=== PATIENT | female | born 1950 | race African-American/Black ===

== ENCOUNTER 2017-08-01 06:16 | Emergency (ER) | payer OTHER ==
[~2017-08-01] VITALS: Ht 177.8 cm; Wt 56.3 kg
[2017-08-01 06:23] VITALS: BP 112/70; TEMP 36.4; O2SAT 97; Ht 177.8 cm; Wt 56.3 kg
[2017-08-01 06:35] VITALS: PULSE 47
[2017-08-01] MEDS ORDERED: ALPR0.5T PO (06:38)
--- NOTE | 2017-08-01 06:44 | EMERGENCY ROOM VISIT NOTE ---
History Report prepared by Sy: Edmund Milan Under the Supervision of: Dr. Francisco J Tirado M.D. First contact with patient: 06:26 Chief Complaint: ANXIETY Stated Complaint: HEADACHE,HEART RACING History of Present Illness The patient is a 67 year old female who presents to the Emergency Room with complaints of "anxiety and panic attacks," which have been worsening for the past month. The patient states that she has a history of anxiety and panic attacks, which have been precipitated for the past month by the passing of her mother. She denies any chest pain, but does note that she felt short of breath this morning when she woke up. The patient notes that the only thing that works for her anxiety is Xanax. Source of History: patient Onset: past month Position: head Quality: other (anxiety and panic attacks) Timing: worsening Associated Symptoms: + SOB, No chest pain Review of Systems See HPI for pertinent positives & negatives. A total of 10 systems reviewed and were otherwise negative. Past Medical & Surgical Medical Problems: (1) Anxiety Anxiety Social History Smoking Status: Never Smoker Drug Use: none Occupation Status: employed Current/Historical Medications Scheduled Alprazolam (Xanax), 0.5 MG PO TID Physical Exam Vital Signs Date Time Temp Pulse Resp B/P (MAP) Pulse Ox O2 Delivery O2 Flow Rate FiO2 08/01/17 06:35 47 18 06:23 36.4 97 18 112/70 97 Room Air Physical Exam GENERAL: Awake, alert, well-appearing, in no acute distress HENT: Normocephalic, atraumatic. Oropharynx unremarkable. EYES: Normal conjunctiva. Sclera non-icteric. NECK: Supple. No nuchal rigidity. FROM. No JVD. RESPIRATORY: Clear to auscultation. CARDIAC: Regular rate, normal rhythm. Extremities warm and well perfused. Pulses equal. ABDOMEN: Soft, non-distended. No tenderness to palpation. No rebound or guarding. No masses. RECTAL: Deferred. MUSCULOSKELETAL: Chest examination reveals no tenderness. The back is symmetrical on inspection without obvious abnormality. There is no CVA tenderness to palpation. No joint edema. LOWER EXTREMITIES: Calves are equal size bilaterally and non-tender. No edema. No discoloration. NEURO: Normal sensorium. No sensory or motor deficits noted. SKIN: No rash or jaundice noted. Medical Decision & Procedures ED Course 0628: Past medical records reviewed. The patient was evaluated in room B3B. A complete history and physical examination was performed. 0649: Upon reexamination the patient is resting in bed. I discussed results and treatment plan with the patient. She verbalizes agreement and understanding. The patient is ready for discharge. Medical Decision Differential diagnosis: Etiologies such as mood disorder, infection, depression, anxiety, hypoglycemia, electrolyte abnormalities, cardiac sources, neurologic, as well as others were entertained. This is a 67-year-old female presents emergency department requesting Xanax. According to the PD MP the patient has Xanax prescription filled approximately once a month and it is only for a limited supply. Patient is not from this area and is requesting some to get her through Saturday. She states that this is a normal anxiety reaction for her and denies any chest pain shortness of breath , suicidal ideation, homicidal ideation. I feel it is reasonable to give the patient a limited supply of Xanax as I do not want her to go into withdrawal from a benzodiazepine. Patient was in agreement with the treatment plan. Medication Reconcilliation Current Medication List: was personally reviewed by me Blood Pressure Screening Patient's blood pressure: Normal blood pressure Impression Primary Impression: Anxiety Scribe Attestation The scribe's documentation has been prepared under my direction and personally reviewed by me in its entirety. I confirm that the note above accurately reflects all work, treatment, procedures, and medical decision making performed by me. Departure Information Dispostion Home / Self-Care Prescriptions Alprazolam (XANAX) 0.5 Mg Tab 0.5 MG PO TID, #12 TAB Prov: Francisco J Tirado MD 08/01/17 Referrals No Doctor, Assigned (PCP) Forms HOME CARE DOCUMENTATION FORM, IMPORTANT VISIT INFORMATION Patient Instructions My [facility] Additional Instructions You have been examined and treated today on an emergency basis only. This is not a substitute for, or an effort to provide, complete comprehensive medical care. It is impossible to recognize and treat all injuries or illnesses in a single emergency department visit. It is therefore important that you follow up closely with your PCP. Call as soon as possible for an appointment. Thank you for your time and consideration. I look forward to speaking with you again soon. Please don't hesitate to call us if you have any questions.
== END 2017-08-01 06:45 | disposition home or self-care (01) ==
LOC: C.EDB 06:18
DX: F41.9 Anxiety disorder, unspecified (principal)

== ENCOUNTER 2023-05-08 15:00 | Inpatient (IN) ==
--- NOTE | 2023-05-08 15:56 | Emergency Department Note ---
Impression & Plan Acute hyponatremia, AMS (altered mental status), Viral URI ED Provider Note NAME: KIKI DELCID AGE: 73 SEX: F : 1950 ARRIVES VIA: Ambulance INFORMANT: Patient ED PROVIDER(S): Sonido Luu DO CHIEF COMPLAINT: cough and chest pain HPI: Patient is a 73-year-old female who presents to the ER for cough, congestion, shortness of breath and weakness. Symptoms started on Saturday per the daughter. Patient had been confused since this morning. Very weak and rundown. She denies any headache or change in vision. Does have chest pain on the right side which resolved prior to arrival. No belly pain, nausea, vomiting, or diarrhea. No dysuria, urgency, or frequency. No other exacerbating or remitting factors. Majority history is obtained from daughter who is present at bedside. ADDITIONAL HISTORY OBTAINED: Per HPI Chronic Medical/Social Conditions Affecting Care: Per HPI PAST MEDICAL HISTORY:See Below PAST SURGICAL HISTORY:See Below FAMILY HISTORY:See Below SOCIAL HISTORY:See Below HOME MEDICATIONS:See Below ALLERGIES:See Below VITALS:See Below PHYSICAL EXAMINATION: GENERAL: Sitting up in bed, alert, persistent cough, slightly ill-appearing, disheveled EYE EXAM: normal conjunctiva. PERRL and EOM's grossly intact. OROPHARYNX: mucous membranes are moist LUNGS: Clear to auscultation. Normal chest wall mechanics HEART: no murmurs, S1 normal and S2 normal ABDOMEN: abdomen soft, non-tender, normo-active bowel sounds, no masses, no rebound or guarding. BACK: Back is symmetrical on inspection and there is no deformity, no midline tenderness, no CVA tenderness. SKIN: no rashes and no bruising UPPER EXTREMITIES: upper extremities are grossly normal. LOWER EXTREMITIES: No pitting edema. NEURO EXAM: Oriented to person and place but not year, cranial nerves II-XII grossly intact, normal speech, no gross weakness of arms, no gross weakness of legs. MEDICAL DECISION MAKING: Patient is a 73-year-old female who presents ER for above-stated complaint. IV was established blood work was obtained. Labs show a subtle leukocytosis of 11,000. No significant anemia. BMP with hyponatremia at 124. LFTs bilirubin was unremarkable. Troponin was mildly elevated at 26. UA was clean. Viral panel was negative. Patient was given Tessalon Perles and IV fluids. Updated at bedside. CT head was negative. Patient did appear to be dehydrated was discussed with the hospitalist for further evaluation management and treatment. Consults/Care Managements Discussions: Per [facility] Triage Nursing notes reviewed. Limited review of prior medical records performed Vital Signs: reviewed and remarkable for no significant abnormalities Differential diagnosis: Differential diagnoses includes but is not limited to pneumonia, bronchitis, COPD/Asthma exacerbation, pneumothorax, pulmonary embolism, congestive heart failure, acute coronary syndrome ER treatment provided: See below Diagnostics interpreted by me include EKG and cardiac monitoring as listed below: -Cardiac Monitoring: An order was placed for continuous cardiac monitoring. The monitor shows a rate of 80 with sinus rhythm. -ECG: Sinus rhythm rate 75 Normal axis No PVCs T wave inversion in V3 through V5 with nonspecific ST changes in the inferior leads QTc 417 -Laboratory studies:Interpreted by me as stated above in MDM and shown below. Imaging studies: Xrays: As interpreted by me: Portable AP upright 1 view the chest shows no focal Lutrate CTs show: CT of the head was negative Procedures:none Critical Care: None Past Med/Surg History Medical History No pertinent past medical history Surgical History History of brain surgery Family History Mother Diabetes Sister Diabetes Brother Hypertension Other Environmental allergies No family history of adverse response to anesthesia No family history of bleeding disorder Denies family history of Ovarian cancer Prostate cancer Myocardial infarction Breast cancer Colorectal cancer Social History Smoking Status: Never smoker Second Hand Exposure: No; Do You Dip or Chew Tobacco: No; Hx Alcohol Use: No Hx Substance Use: No Preferred Language: Polish Visual Impairment: Limited Hearing Ability: Normal Beliefs That Will Affect Care: None marital status: Single Current Living Situation: Alone current occupational status: retired How many Children do You have: 2 How many Children do You have Comment: 1 boy 1 girl Feels Safe at Home: Yes Childhood Exposure to Second-Hand Smoke: No Diet: regular during the past year weight has: remained stable Dental Care, Regularly: No Physical Activity Frequency: Does not Exercise Seatbelt Use: always Sunscreen Use: No Allergies Allergies Allergy/AdvReac Type Severity Reaction Status Date / Time No Known Allergies Allergy Verified 05/08/23 17:26 Home Meds Home Medications Medication Instructions Recorded Confirmed No Known Home Medications 02/28/23 05/08/23 Results & Data (ED) Vital Signs Vital Signs - 24 hr 05/08/23 15:33 05/08/23 18:09 Temperature 37.4 C Temperature Source Oral Pulse Rate 76 Pulse Rate [Apical] 68 Respiratory Rate 20 17 Respiratory Effort / Characteristics Non-Labored Respiratory Depth Normal Blood Pressure 133/71 Blood Pressure [Left Arm] 98/59 L Blood Pressure Mean 91 Blood Pressure Mean [Left Arm] 72 Pulse Oximetry 92 94 Oxygen Delivery Method Room Air Room Air Sepsis Recent Fever Within 48 Hours Yes Sepsis New/Unexplained Change in Mental Status Yes Sepsis Action Taken by Nursing No Action Required Laboratory Data 05/08/23 15:22 05/08/23 15:22 Lab Results 05/08/23 05/08/23 05/08/23 Range/Units 15:22 15:30 15:37 WBC 11.81 H (4.8-10.8) K/ul RBC 3.58 L (4.20-5.40) M/uL Hgb 11.6 L (12.0-16.0) g/dl Hct 32.2 L (37.0-47.0) % MCV 89.9 (80.0-100.0) fL MCH 32.4 (25.0-34.0) pg MCHC 36.0 (32.0-36.0) g/dL RDW Std Deviation 38.5 (36.4-46.3) fL RDW Coeff of Pamela 11.7 (11.5-14.5) % Plt Count 204 (130-400) K/uL MPV 10.9 (9.4-12.4) fL Immature Gran % (Auto) 0.5 % Neut % (Auto) 80.0 % Lymph % (Auto) 10.5 % Bledsoe % (Auto) 8.0 % Eos % (Auto) 0.7 % Baso % (Auto) 0.3 % Neut # (Auto) 9.45 H (1.40-6.50) K/uL Lymph # (Auto) 1.24 (1.20-3.40) K/uL Bledsoe # (Auto) 0.94 H (0.11-0.59) K/uL Eos # (Auto) 0.08 (0.00-0.50) K/uL Baso # (Auto) 0.04 (0.00-0.20) K/uL Immature Gran # (Auto) 0.06 (0.01-0.20) K/uL Sodium 124 L (136-145) mmol/L Potassium 3.6 (3.5-5.1) mmol/L Chloride 90 L (98-107) mmol/L Carbon Dioxide 25 (21-32) mmol/L Anion Gap 9 (3-11) BUN 10 (6-23) mg/dl Creatinine 0.69 (0.6-1.2) mg/dl Est Cr Clr Drug Dosing 71.7 ml/min Est GFR ( Amer) 100.8 ml/min Est GFR (Non-Af Amer) 87.0 ml/min BUN/Creatinine Ratio 14.5 (10-20) Glucose 80 (70-99(Fasting)) mg/dl Osmolality 259 L (280-300) mOsm/kg Calcium 9.3 (8.6-10.3) mg/dl Total Bilirubin 0.7 (0.2-1.0) mg/dl AST 34 (13-39) U/L ALT 10 (7-52) U/L Alkaline Phosphatase 107 H (34-104) U/L Lactate Dehydrogenase 275 H (86-244) U/L Troponin I High Sens 26.0 H (0-14) pg/ml Total Protein 8.0 (6.0-8.3) gm/dl Albumin 4.1 (3.4-5.0) gm/dl Globulin 3.9 (2.5-4.0) gm/dl Albumin/Globulin Ratio 1.1 (0.9-2) Lipase < 3 L (11-82) U/L Procalcitonin 7.12 H (0-0.5) ng/ml Random Cortisol 8.70 mcg/dl Urine Color Yellow Urine Appearance Clear (Clear) Urine pH 5.5 (4.5-7.5) Ur Specific [place] 1.017 (1.000-1.030) Urine Protein Trace H (Negative) Urine Glucose (UA) Negative (Negative) Urine Ketones 3+ H (Negative) Urine Blood 3+ H (Negative) Urine Nitrite Negative (Negative) Urine Bilirubin Negative (Negative) Urine Urobilinogen Negative (Negative) Ur Leukocyte Esterase Trace H (Negative) Urine WBC (Auto) 1-5 (0-5) /hpf Urine RBC (Auto) >30 H (0-4) /hpf U Hyaline Cast (Auto) 1-5 (0-5) /lpf U Epithel Cells (Auto) 5-10 H (0-5) /lpf Urine Bacteria (Auto) Negative (Negative) Urine Osmolality 579 (500-800) mOsm/kg Ur Random Sodium 120 mmol/L SARS-CoV-2 (PCR) NEGATIVE (Negative) Influenza Type A (PCR) Negative (Neg) Influenza Type B (PCR) Negative (Neg) RSV (RT-PCR) Negative (Neg) Administered Medications Discontinued Medications Acetaminophen (Acetaminophen 325 Mg Tab) 650 mg PO NOW STA Stop: 05/08/23 18:46 Last Admin: 05/08/23 18:54 Dose: Not Given Documented By: FRANCIA Benzonatate (Benzonatate 100 Mg Capsule) 100 mg PO NOW ONE Stop: 05/08/23 15:50 Last Admin: 05/08/23 16:04 Dose: 100 mg Documented By: FRANCIA Sodium Chloride (Nss) 500 mls @ 999 mls/hr IV .Q31M ONE Stop: 05/08/23 16:19 Last Infusion: 05/08/23 16:43 Dose: Infused Documented By: Admin: 05/08/23 16:04 Dose: 999 mls/hr Documented By: FRANCIA Ceftriaxone Sodium (Rocephin) 2,000 mg in 50 mls @ 100 mls/hr IV NOW STA Stop: 05/08/23 17:13 Last Infusion: 05/08/23 17:18 Dose: Infused Documented By: Admin: 05/08/23 16:55 Dose: 100 mls/hr Documented By: FRANCIA Azithromycin 500 mg/ Dextrose 255 mls @ 127.5 mls/hr IV NOW STA Stop: 05/08/23 18:43 Last Infusion: 05/08/23 19:39 Dose: Infused Documented By: Admin: 05/08/23 17:23 Dose: 127.5 mls/hr Documented By: BRENT Acetaminophen (Ofirmev) 1,000 mg in 100 mls @ 400 mls/hr IV NOW STA Stop: 05/08/23 20:10 Last Admin: 05/08/23 20:09 Dose: 400 mls/hr Documented By: KHLOE Ioversol (Optiray 320 500ml) 82 ml IV ONCE ONE Stop: 05/08/23 20:22 Last Admin: 05/08/23 20:21 Dose: 82 ml Documented By: LAINE Imaging Data Radiologist's Impression: Chest X-Ray 05/08/23 15:36 XR chest 1V portable CLINICAL HISTORY: Cough productive TECHNIQUE: Single frontal radiograph of the chest was obtained. Comparison: Comparison is made to chest radiograph 03/17/2021 FINDINGS: No lines and tubes are seen. Cardiomegaly is noted. Peribronchial thickening is seen. No evidence of pleural effusion or pneumothorax. IMPRESSION: Peribronchial thickening is seen compatible with infectious/inflammatory airways disease or viral pneumonia. No aristides consolidation is seen. ACT 112: Negative or not required by law. Electronically signed by: Dario Billings M.D. 05/08/2023 4:[address] 05/08/23 16:51 CT head/brain wo con CLINICAL HISTORY: ams Technique: Contiguous axial CT images of the head were acquired from the base of the skull to the vertex without intravenous contrast administration. Images were viewed in brain, subdural and bone windows. Automated dose lowering techniques and/or adjustment according to patient size were utilized for this exam. Comparison: Comparison is made to CT head 03/17/2021 Findings: The ventricles, basal cisterns, and cerebral sulci are normal. There is no acute intracranial hemorrhage or evidence of acute territorial infarction. Neither mass effect, shift of the midline structures, nor abnormal extra-axial fluid collections are shown. Imaged portions of the paranasal sinuses and mastoid air cells are clear. The orbits appear normal. There are no acute fractures of the calvaria or scalp swelling. Impression: No acute intracranial hemorrhage, no evidence of acute territorial infarction or other acute intracranial disease process. ACT 112: Negative or not required by law. Electronically signed by: Dario Billings M.D. 05/08/2023 5:12 PM Discharge Plan Visit Data Chief Complaint: Illness Stated Complaint: ILLNESS, COUGH, CONFUSION ED Provider: Sonido Luu Discharge Problem: Acute hyponatremia, AMS (altered mental status), Viral URI Discharge Problem: AMS (altered mental status) Qualifiers: Altered mental status type: unspecified Qualified Code(s): R41.82 - Altered mental status, unspecified
[2023-05-08 16:01] LABS: Appearance Urine Clear (Clear); Bacteria Urine Automated Negative (Negative); Bilirubin Urine Negative (Negative); Blood Urine 3+ (Negative); Color Urine Yellow; Glucose Urine UA Negative (Negative); Ketones Urine 3+ (Negative); Leukocyte Esterase Urine Trace (Negative); Nitrite Urine Negative (Negative); Protein Urine Trace (Negative); RBC Urine Automated >30 /hpf (0-4); Specific Gravity Urine 1.017 (1.000-1.030); Urobilinogen Urine Negative (Negative); pH Urine 5.5 (4.5-7.5)
[2023-05-08] MEDS: SODIUM CHLORIDE 0.9% 500 ML IV ONE (16:04)
[2023-05-08] MEDS: BENZONATATE 100 MG CAPSULE PO ONE (16:04)
[2023-05-08 16:09] LABS: Alanine Aminotransferase 10 U/L (7-52); Albumin Globulin Ratio 1.1 (0.9-2); Albumin Level 4.1 gm/dl (3.4-5.0); Alkaline Phosphatase 107 U/L (34-104); Anion Gap 9 (3-11); Aspartate Aminotransferase 34 U/L (13-39); BUN Creatinine Ratio 14.5 (10-20); Bilirubin,Total 0.7 mg/dl (0.2-1.0); Blood Urea Nitrogen 10 mg/dl (6-23); Calcium 9.3 mg/dl (8.6-10.3); Carbon Dioxide 25 mmol/L (21-32); Chloride 90 mmol/L (98-107); Creatinine Clr Calc Pharmacy 71.7 ml/min; Est GFR (African American) 100.8 ml/min; Globulin 3.9 gm/dl (2.5-4.0); Glucose 80 mg/dl (70-99(Fasting)); Potassium 3.6 mmol/L (3.5-5.1); Sodium 124 mmol/L (136-145)
[2023-05-08 16:15] LABS: Hematocrit (blood only) 32.2 % (37.0-47.0); Hemoglobin 11.6 g/dl (12.0-16.0); Mean Corpuscular Hemoglobin 32.4 pg (25.0-34.0); Mean Corpuscular Volume 89.9 fL (80.0-100.0); Mean Platelet Volume 10.9 fL (9.4-12.4); Platelet Count 204 K/uL (130-400); RDW Coefficient of Variation 11.7 % (11.5-14.5); RDW Standard Deviation 38.5 fL (36.4-46.3); Red Blood Count 3.58 M/uL (4.20-5.40); White Blood Count 11.81 K/ul (4.8-10.8)
[2023-05-08 16:17] LABS: Basophils # (auto) 0.04 K/uL (0.00-0.20); Basophils % (auto) 0.3 %; Eosinophils # (auto) 0.08 K/uL (0.00-0.50); Eosinophils % (auto) 0.7 %; Immature Granulocytes # (auto) 0.06 K/uL (0.01-0.20); Immature Granulocytes % (auto) 0.5 %; Lymphocytes # (auto) 1.24 K/uL (1.20-3.40); Lymphocytes % (auto) 10.5 %; Monocytes # (auto) 0.94 K/uL (0.11-0.59); Neutrophils # (auto) 9.45 K/uL (1.40-6.50)
[2023-05-08 16:22] LABS: Lipase < 3 U/L (11-82)
--- NOTE | 2023-05-08 16:28 | XRay Report ---
XR chest 1V portable CLINICAL HISTORY: Cough productive TECHNIQUE: Single frontal radiograph of the chest was obtained. Comparison: Comparison is made to chest radiograph 03/17/2021 FINDINGS: No lines and tubes are seen. Cardiomegaly is noted. Peribronchial thickening is seen. No evidence of pleural effusion or pneumothorax. IMPRESSION: Peribronchial thickening is seen compatible with infectious/inflammatory airways disease or viral pne umonia. No aristides consolidation is seen. ACT 112: Negative or not required by law. Electronically signed by: Dario Billings M.D. 05/08/2023 4:26 PM
[2023-05-08 16:42] LABS: Influenza A virus by PCR Negative (Neg); Influenza B virus by PCR Negative (Neg); RSV by PCR Negative (Neg); SARS CoV2 RNA(COVID-19) Ceph NEGATIVE (Negative)
[2023-05-08] MEDS: cefTRIAXone SODIUM 2,000 MG/50 ML BAG IV STA (16:55)
--- NOTE | 2023-05-08 16:59 | Electrocardiogram Report ---
Test Reason : Blood Pressure : / mmHG Vent. Rate : 075 BPM Atrial Rate : 075 BPM P-R Int : 142 ms QRS Dur : 092 ms QT Int : 422 ms P-R-T Axes : 064 063 -30 degrees QTc Int : 471 ms Normal sinus rhythm Incomplete right bundle branch block Abnormal ECG When compared with ECG of 17-MAR-2021 16:07, Incomplete right bundle branch block is now Present Confirmed by Angelo Rodriguez ([id number]) on 05/08/2023 4:59:00 PM Referred By: Confirmed By:Jayce Rodriguez
--- NOTE | 2023-05-08 17:14 | CT Scan Report ---
CT head/brain wo con CLINICAL HISTORY: ams Technique: Contiguous axial CT images of the head were acquired from the base of the skull to the britney joaquim without intravenous contrast administration. Images were viewed in brain, subdural and [facility]. Automated dose lowering techniques and/or adjustment according to patient size were utilized for this exam. Comparison: Comparison is made to CT head 03/17/2021 Findings: The ventricles, basal cisterns, and cerebral sulci are normal. There is no acute intracranial hemorrh age or evidence of acute territorial infarction. Neither mass effect, shift of the midline structures , nor abnormal extra-axial fluid collections are shown. Imaged portions of the paranasal sinuses and mastoid air cells are clear. The orbits appear normal. There are no acute fractures of the calvaria or scalp swelling. Impression: No acute intracranial hemorrhage, no evidence of acute territorial infarction or other acute intracra nial disease process. ACT 112: Negative or not required by law. Electronically signed by: Dario Billings M.D. 05/08/2023 5:12 PM
[2023-05-08] MEDS: AZITHROMYCIN 500 MG in DEXTROSE 5% 250 ML IV STA (17:23)
--- NOTE | 2023-05-08 18:38 | History & Physical Report ---
Date of Service May 08, 2023 Assessment & Plan (1) Acute hyponatremia: (2) AMS (altered mental status): (3) Pituitary adenoma: (4) CAP (community acquired pneumonia): Plan CAP - Cough, nasal congestion about 5 days ago- Double sickening - Sputum production - Bilateral rhonchi on auscultation - Fever on ambulance - WBC : 11. 81 - CXR:Peribronchial thickening is seen compatible with infectious/inflammatory airways disease or viral pneumonia -Procalcitonin 7.17 - Azithromycin 500 mg today, continue 250 mg daily -Ceftriaxone daily for 5 days - Blood culture, throat culture - CBC am, CMP am Hypotonic hyponatremia SIADH - sudden general weakness/ lethargy today, disorientation. Unable to stand on her own - Low PO intake since 2 days ago - Dry mucous membranes - SIADH seem to be provoke by her CAP - Low BP: 98/59 - Na: 124 - Serum Osmolality 259 - Urine osmolality 579 - Urine random 120 - Fluid restriction < 1,000 mL/day -CMP am Chest pain/MSK pain - Troponin 24 - EKG: Normal sinus rhythm, Incomplete right bundle branch block -Reproducible Repeat troponin Pituitary adenoma - Two surgery 1995, 2003 at [place] -Patient move from [place] in 2019 Dispo: Med/ Telemetry DVT prophylaxis: Lovenox 40 sq Diet: NPO, fluid restriction Code: Full Code History of Present Illness Primary Care Provider: Supriya Gallegos, 73 year old female with PMH of pituitary adenoma here due to cough, congestion and weakness. Symptoms started on Saturday with cough and runny nose. She was taking Mucinex, was getting better but cough return yesterday. Daughter refers sudden disorientation and generalized weakness this afternoon, that make the patient unable to stand up. Additionally patient refers chest pain, worse with cough. Had poor PO intake since 2 days ago. No diarrhea, but 2 soft BMs today. No problems findings words.At evaluation she was oriented x3. Denied any nausea or vomiting. Denied any SOB, no dysuria, no urgency, no frequency. No sick contacts At arrival patient found with hypovolemia. No fever. [address] head: negative for any acute pathology or bleeding. CXR: Peribronchial thickening. WBC: Mild leukocytosis (11,000). Hyponatremia of 124. Serum osmolality: 259. Troponin: 26: EKG: Normal sinus rhythm, incomplete right bundle branch block. Allergies Allergy/AdvReac Type Severity Reaction Status Date / Time No Known Allergies Allergy Verified 05/08/23 17:26 Home Medications Medication Instructions Recorded Confirmed Type No Known Home Medications 02/28/23 05/08/23 History Past Med/Surg History Medical History No pertinent past medical history Surgical History History of brain surgery Family History Mother Diabetes Sister Diabetes Brother Hypertension Other Environmental allergies No family history of adverse response to anesthesia No family history of bleeding disorder Denies family history of Ovarian cancer Prostate cancer Myocardial infarction Breast cancer Colorectal cancer Social History Smoking Status: Never smoker Second Hand Exposure: No; Do You Dip or Chew Tobacco: No; Hx Alcohol Use: No Hx Substance Use: No Preferred Language: Maltese Communication Ability: Effective Visual Impairment: Limited Hearing Ability: Normal Pipefitter Required: No Beliefs That Will Affect Care: None marital status: Single Current Living Situation: Alone and Family Current Living Situation Comment: lives with daughter, but alone most days current occupational status: retired How many Children do You have: 2 How many Children do You have Comment: 1 boy 1 girl Other Information That Helps Us Care for You: No Feels Safe at Home: Yes Safety Concerns: Feels Safe At This Time Childhood Exposure to Second-Hand Smoke: No Diet: regular during the past year weight has: remained stable Dental Care, Regularly: No Physical Activity Frequency: Does not Exercise Seatbelt Use: always Sunscreen Use: No Assistive Devices: None Review of Systems Review of Systems: as per HPI Physical Exam Constitutional: well developed and + ill appearing Eyes: PERRL, conjunctivae normal, anicteric sclerae ENMT: Mouth: + dry oral mucous membranes Respiratory: normal respiratory effort and + cough; no respiratory distress Auscultation: + rhonchi (bilateral ) Cardiovascular: RRR, no murmur, no edema Gastrointestinal (Abdomen): normal bowel sounds, soft, nontender, no hepatosplenomegaly Musculoskeletal: no cyanosis or clubbing, extremities motor strength 5/5 Skin: Dry skin Neurologic: PERRL, EOMI, accommodation nl, no face palsy, no dysarthria deep tendon reflexes 2+ bilaterally and moves all extremities Results & Data Results & Data Vital Signs (Past 12 Hours) Vital Signs Temp Pulse Pulse Resp BP BP Pulse Ox 05/08/23 18:09 68 17 98/59 L 94 05/08/23 15:33 37.4 C 76 20 133/71 92 O2 Del Method 05/08/23 18:09 Room Air 05/08/23 15:33 Room Air Supervising Physician Co-Signing Physician Notes I personally saw and examined the patient. I verified all foley points and agree with resident physician Dr Denisse Yusuf PA-C with the following exceptions and/or additions: 73-year-old female presents to the ER with altered mental status, generalized weakness, cough, sore throat, nasal congestion. History of a pituitary adenoma although unknown whether this was secreting and she has not been on any medications for this for the past 8 years. Last surgery was 10 years ago. No known previous issues with her sodium levels. O/E Alert and orientated to person only, HS RRR, no murmurs, Chest rhonchi bilateral throughout, Abdo SNT, no cervical lymphadenopathy, no unilateral weakness, PERRL, EOMI intact, no facial droop A/P Acute bronchitis/pneumonia - no significant changes on chest x-ray with no large area of consolidation however procalcitonin significant elevated without alternative source. Multiple dental caries on both exam and CT imaging however no abscess requiring draining on CT soft tissue neck. Continue treatment for acute bronchitis/community-acquired pneumonia with ceftriaxone azithromycin and monitor for improvement Pharyngitis - difficult exam but no abscess identified. Group A strep PCR and throat culture ordered. Hyponatremia - consistent with SIADH with elevated urine osmolality and sodium levels. No acute CT head changes to suggest cerebral salt wasting. N.p.o. eventual treatment will be with fluid restriction and salt tabs but will utilize hypertonic saline as needed overnight to aim for 6 to 8 mEq increase over the next 24 hours. Avoid NSAIDs. Resident Activity Tracking Resident Involvement: Resident Care Provided Care Provided: Adult Hospital Medicine (2) AMS (altered mental status) Altered mental status type: unspecified Qualified Code(s): R41.82 - Altered mental status, unspecified
[2023-05-08] MEDS: ACETAMINOPHEN 325 MG TAB PO STA (18:54)
[2023-05-08 19:50] LABS: Lactate Dehydrogenase 275 U/L (86-244)
[2023-05-08] MEDS: ACETAMINOPHEN 1,000 MG/100 ML VIAL IV STA (20:09)
[2023-05-08] MEDS: OPTIRAY 320 500ml IV ONE (20:21)
[2023-05-08] MEDS ORDERED: POLYETHYLENE (MIRALAX) 17 GM PACK PO PRN (21:09)
[2023-05-08 21:30] LABS: BUN Creatinine Ratio 16.4 (10-20); Calcium 8.6 mg/dl (8.6-10.3); Creatinine Clr Calc Pharmacy 81.1 ml/min; Est GFR (Non-African American) 90.6 ml/min; Potassium 3.5 mmol/L (3.5-5.1)
[2023-05-08 21:35] LABS: Troponin I High Sensitivity 26.7 pg/ml (0-14)
[2023-05-08 21:44] LABS: Thyroid Stimulating Hormone 1.95 uIu/ml (0.300-4.500)
[2023-05-08] MEDS ORDERED: STAT IV/IM STA (22:05)
[2023-05-08] MEDS: ENOXAPARIN INJ 40 MG/0.4 ML SYR SQ SCH (22:15)
[2023-05-08] MEDS: SODIUM CHLORIDE 3 % 100 ML IV ONE (22:53)
[2023-05-09 01:30] LABS: BUN Creatinine Ratio 13.8 (10-20); Calcium 9.1 mg/dl (8.6-10.3); Creatinine Clr Calc Pharmacy 61.8 ml/min; Est GFR (African American) 85.4 ml/min; Est GFR (Non-African American) 73.7 ml/min; Potassium 4.5 mmol/L (3.5-5.1)
[2023-05-09] MEDS ORDERED: GLUCOSE 40% GEL 15 GM TUBE PO PRN (01:40)
[2023-05-09] MEDS ORDERED: GLUCAGON FOR INJ 1 MG VIAL SQ PRN (01:40)
[2023-05-09] MEDS ORDERED: CARBOHYDRATES FOR HYPOGLYCEMIA PO PRN (01:40)
[2023-05-09] MEDS ORDERED: GLUCOSE 10 TAB/TUBE PO PRN (01:40)
[2023-05-09] MEDS ORDERED: DEXTROSE 50% 50 ML SYRINGE IV PRN (01:40)
[2023-05-09] MEDS ORDERED: STAT IV/IM STA (01:49)
[2023-05-09] MEDS: DEXTROSE 50% 50 ML SYRINGE IV ONE ×2 (01:50→02:45)
[2023-05-09] MEDS: SODIUM CHLORIDE 3 % 50 ML IV ONE (02:00)
--- NOTE | 2023-05-09 02:16 | CT Scan Report ---
Exam(s): CT NECK With Contrast IV Amt: 82 ML OPTIRAY 320 EXAM: CT Neck With Intravenous Contrast CLINICAL HISTORY: Reason for exam: Sepsis, throat pain, poor dentition ?abscess. TECHNIQUE: Axial computed tomography images of the neck with intravenous contrast. CTDI is 11.43 mGy and DLP is 289.39 mGy-cm. Automated exposure control was utilized for the study. A dose lowering technique was utilized adhering to the principles of ALARA. CONTRAST: Patient received 82 ML OPTIRAY 320 of IV contrast COMPARISON: No relevant prior studies available. FINDINGS: Oropharynx: Unremarkable. No significant tonsillar enlargement. No peritonsillar abscess. Hypopharynx: Unremarkable. Larynx: Unremarkable. Normal epiglottis. Trachea: Unremarkable. Retropharyngeal space: Unremarkable. Submandibular/parotid glands: Unremarkable. Glands are normal in size. Thyroid: Unremarkable. No enlarged or calcified nodules. Bones/joints: No acute fracture. Soft tissues: Unremarkable. Vasculature: No acute findings. Lymph nodes: Unremarkable. No lymphadenopathy. Sinuses: Bilateral maxillary sinus mucosal thickening. Dental: Marked periapical lucencies associated with multiple upper and lower teeth bilaterally, may represent periapical abscesses. Mottled appearance of the bones with some cortical defects of the maxilla, notably of the maxillary premolars and molars. Dental caries. No discrete rim-enhancing fluid collection. Lung apices: Unremarkable as visualized. IMPRESSION: Marked periapical lucencies associated with multiple upper and lower teeth bilaterally, may represent periapical abscesses. Mottled appearance of the bones with some cortical defects of the maxilla, notably of the maxillary premolars and molars. Dental caries. No discrete rim-enhancing fluid collection. Electronically signed by: Joey Daniels M.D. 05/09/23 02:15 AM
[2023-05-09] MEDS: COUGH DROP (SUGAR FREE) LOZ 24 LOZ/1 BOX BUCCAL ONE (08:00)
[2023-05-09 09:03] LABS: Albumin Level 3.7 gm/dl (3.4-5.0); Bilirubin,Total 0.8 mg/dl (0.2-1.0); Potassium 3.5 mmol/L (3.5-5.1)
[2023-05-09] MEDS: ACETAMINOPHEN 325 MG TAB PO PRN (09:08)
[2023-05-09 09:09] LABS: BUN Creatinine Ratio 16.1 (10-20); Creatinine Clr Calc Pharmacy 79.8 ml/min; Est GFR (African American) 104.4 ml/min; Est GFR (Non-African American) 90.1 ml/min; Globulin 3.7 gm/dl (2.5-4.0); Total Protein 7.4 gm/dl (6.0-8.3)
[2023-05-09 09:21] LABS: Hematocrit (blood only) 33.7 % (37.0-47.0); Hemoglobin 12.6 g/dl (12.0-16.0); Mean Corpuscular Hemoglobin 32.6 pg (25.0-34.0); Mean Corpuscular Hgb Conc 37.4 g/dL (32.0-36.0); Mean Corpuscular Volume 87.3 fL (80.0-100.0); Mean Platelet Volume 11.3 fL (9.4-12.4); Platelet Count 171 K/uL (130-400); RDW Coefficient of Variation 11.8 % (11.5-14.5); RDW Standard Deviation 37.6 fL (36.4-46.3); Red Blood Count 3.86 M/uL (4.20-5.40); White Blood Count 12.26 K/ul (4.8-10.8)
[2023-05-09 09:23] LABS: Basophils # (auto) 0.03 K/uL (0.00-0.20); Basophils % (auto) 0.2 %; Eosinophils % (auto) 0.8 %; Immature Granulocytes # (auto) 0.05 K/uL (0.01-0.20); Immature Granulocytes % (auto) 0.4 %; Lymphocytes % (auto) 11.4 %; Monocytes # (auto) 0.69 K/uL (0.11-0.59); Monocytes % (auto) 5.6 %; Neutrophils # (auto) 9.99 K/uL (1.40-6.50); Neutrophils % (auto) 81.6 %; Platelet Estimate Decreased (Normal); Poikilocytosis Present
[2023-05-09] MEDS: COUGH DROP (SUGAR FREE) LOZ 24 LOZ/1 BOX BUCCAL PRN (09:58)
--- NOTE | 2023-05-09 10:09 | XRay Report ---
XR chest 1V portable HISTORY: 73 years-old Female increased sputum production, rising WBC ?PNA acute cough with leukocyto sis COMPARISON: 05/08/2023 TECHNIQUE: AP view the chest FINDINGS: Cardiomediastinal and hilar silhouettes are within normal limits. No pneumothorax, pleural effusion o r overt pulmonary edema. Mild bibasilar opacities are most pronounced within the right infrahilar dis tribution. Bones appear grossly intact. IMPRESSION: Mild right infrahilar and left retrocardiac opacities may represent atelectasis versus a mild pneumonitis. ACT 112: Negative or not required by law. The above report was generated using voice recognition software. It may contain grammatical, syntax o r spelling errors. Electronically signed by: Timo Montgomery M.D. 05/09/2023 10:07 AM
--- NOTE | 2023-05-09 13:00 | Electrocardiogram Report ---
Test Reason : Blood Pressure : / mmHG Vent. Rate : 069 BPM Atrial Rate : 069 BPM P-R Int : 164 ms QRS Dur : 096 ms QT Int : 438 ms P-R-T Axes : 054 026 -38 degrees QTc Int : 469 ms Normal sinus rhythm T wave abnormality, consider anterior ischemia Abnormal ECG When compared with ECG of 08-MAY-2023 15:09, Incomplete right bundle branch block is no longer Present Criteria for Septal infarct are no longer Present Confirmed by Angelo Rodirguez ([id number]) on 05/09/2023 1:00:38 PM Referred By: REFERRED SELF Confirmed By:Jayce Rodriguez
--- NOTE | 2023-05-09 14:42 | Billing Data ---
Date of Service May 08, 2023 Coding Level of Care Code 61996 INT INP/OBS CARE
--- NOTE | 2023-05-09 14:58 | Hospitalist Progress Note ---
Date of Service May 09, 2023 Assessment & Plan (1) CAP (community acquired pneumonia): Plan: Clinically pneumonia given elevated procalcitonin, severity of illness and lung auscultation findings although no significant change on CXR, since she is clinically improving do not feel we need CT chest to confirm this currently. Cepheid PCR negative Ceftriaxone + azithromycin, despite increasing WBC she is clinically improving therefore will continue on current antibiotics Repeat procalcitonin tomorrow (2) SIADH (syndrome of inappropriate ADH production): Plan: Significantly elevated urine sodium and osm consistent with this. No intracranial findings on CT head to suggest cerebral salt wasting. Fluid restrict 1L. Start salt tabs if sodium stable on repeat labs later today. Repeat urine sodium and osmolality tomorrow (3) Pituitary adenoma: Plan: Historical diagnosis. No acute symptoms suggested of this unless vasopressin secreting adenoma but suspect this is much less likely than SIADH but will consider if urine NA/osm not resolving (repeat tomorrow). (4) Dental caries: Plan: Very loose teeth with periapical lucencies. Will ask oromaxillofacial surgery to review given this is effecting her ability to eat although suspect management will be done on an outpaitent basis. (5) Acute bronchitis: (6) Acute hyponatremia: (7) AMS (altered mental status): Plan VTE prophylaxis - Lovenox 40 mg subcu daily Diet - regular, minced and moist, fluid restrict 1000 mL Disposition - continued admission to med/tele, PT OT evaluations ordered Admission and Anticipated Discharge Date Admission Date: May 08, 2023 Subjective Significantly improved altered mental status. Still with significant sore throat although this is improving. Tmax 38.5 C this morning. Ongoing significant sputum production but able to cough this up easier. She denies any pain. No unilateral weakness but continues to be generally weak all over. Review of Systems Review of Systems: All systems reviewed & are unremarkable except as noted in HPI & below Physical Exam Constitutional: well developed; + not well nourished and no acute distress Eyes: PERRL, conjunctivae normal, anicteric sclerae ENMT: external ear and nose normal, oropharynx normal Mouth: + poor dentition Neck: trachea midline, no thyromegaly Respiratory: normal respiratory effort; no respiratory distress Auscultatio n: + rhonchi (Throughout with improved air entry from yesterday); no crackles and no wheezes Cardiovascular: RRR, no murmur, no edema Gastrointestinal (Abdomen): normal bowel sounds, soft, nontender, no hepatosplenomegaly Musculoskeletal: no cyanosis or clubbing, extremities motor strength 5/5 Skin: no rashes, warm and dry Neurologic: moves all extremities and awake; no focal motor deficits and not confused Psychiatric: A+Ox3, euthymic affect Results & Data Results & Data Vital Signs (Past 12 Hours) Vital Signs Temp Pulse Pulse Resp BP Pulse Ox O2 Del Method 05/09/23 11:17 37.8 C H 66 18 107/60 93 Room Air 05/09/23 08:00 Room Air 05/09/23 07:31 38.5 C H 66 20 109/58 L 95 Room Air 05/09/23 07:00 70 05/09/23 06:00 36.8 C 05/09/23 04:06 36.5 C 71 18 116/68 95 Room Air Laboratory Results Abnormal lab results 05/08/23 05/08/23 05/08/23 Range/Units 15:22 15:30 20:49 WBC 11.81 H (4.8-10.8) K/ul RBC 3.58 L (4.20-5.40) M/uL Hgb 11.6 L (12.0-16.0) g/dl Hct 32.2 L (37.0-47.0) % MCHC (32.0-36.0) g/dL Neut # (Auto) 9.45 H (1.40-6.50) K/uL Mcmullen # (Auto) 0.94 H (0.11-0.59) K/uL Platelet Estimate (Normal) Sodium 124 L 123 L (136-145) mmol/L Chloride 90 L 92 L (98-107) mmol/L Glucose (70-99(Fasting)) mg/dl POC Glucose (70-99) mg/dl Osmolality 259 L (280-300) mOsm/kg AST (13-39) U/L Alkaline Phosphatase 107 H (34-104) U/L Lactate Dehydrogenase 275 H (86-244) U/L Troponin I High Sens 26.0 H 26.7 H (0-14) pg/ml Lipase < 3 L (11-82) U/L Procalcitonin 7.12 H (0-0.5) ng/ml Urine Protein Trace H (Negative) Urine Ketones 3+ H (Negative) Urine Blood 3+ H (Negative) Ur Leukocyte Esterase Trace H (Negative) Urine RBC (Auto) >30 H (0-4) /hpf U Epithel Cells (Auto) 5-10 H (0-5) /lpf 05/09/23 05/09/23 05/09/23 Range/Units 00:43 02:08 07:58 WBC 12.26 H (4.8-10.8) K/ul RBC 3.86 L (4.20-5.40) M/uL Hgb (12.0-16.0) g/dl Hct 33.7 L (37.0-47.0) % MCHC 37.4 H (32.0-36.0) g/dL Neut # (Auto) 9.99 H (1.40-6.50) K/uL Mcmullen # (Auto) 0.69 H (0.11-0.59) K/uL Platelet Estimate Decreased L (Normal) Sodium 128 L 129 L (136-145) mmol/L Chloride 97 L 95 L (98-107) mmol/L Glucose 66 L 61 L (70-99(Fasting)) mg/dl POC Glucose 101 H (70-99) mg/dl Osmolality (280-300) mOsm/kg AST 41 H (13-39) U/L Alkaline Phosphatase (34-104) U/L Lactate Dehydrogenase (86-244) U/L Troponin I High Sens (0-14) pg/ml Lipase (11-82) U/L Procalcitonin (0-0.5) ng/ml Urine Protein (Negative) Urine Ketones (Negative) Urine Blood (Negative) Ur Leukocyte Esterase (Negative) Urine RBC (Auto) (0-4) /hpf U Epithel Cells (Auto) (0-5) /lpf Diagnostic Findings XR chest 1V portable HISTORY: 73 years-old Female increased sputum production, rising WBC ?PNA acute cough with leukocytosis COMPARISON: 05/08/2023 TECHNIQUE: AP view the chest FINDINGS: Cardiomediastinal and hilar silhouettes are within normal limits. No pneumothorax, pleural effusion or overt pulmonary edema. Mild bibasilar opacities are most pronounced within the right infrahilar distribution. Bones appear grossly intact. IMPRESSION: Mild right infrahilar and left retrocardiac opacities may represent atelectasis versus a mild pneumonitis. PG Care Time/CCT Total # of Minutes Spent Total Time Spent with Patient: Total time spent is greater than 50% in coordination of care (as documented) at patient's floor/unit and/or counseling patient: Coding Level of Care Code 42851 SUB INP/OBS CARE 3/50MIN Diagnoses CAP (community acquired pneumonia) J18.9 SIADH (syndrome of inappropriate ADH production) E22.2 Pituitary adenoma D35.2 Dental caries K02.9 Acute bronchitis J20.9 Acute hyponatremia E87.1 AMS (altered mental status) R41.82 Altered mental status type: unspecified (7) AMS (altered mental status) Altered mental status type: unspecified Qualified Code(s): R41.82 - Altered mental status, unspecified
[2023-05-09] MEDS: cefTRIAXone SODIUM 2,000 MG in DEXTROSE 5 % MINI-B 50 ML IV SCH (15:58)
[2023-05-09] MEDS: CHLORHEXIDINE GLUCONATE 0.12% 480 ML MT PRN (15:58)
[2023-05-09] MEDS: AZITHROMYCIN 250 MG TAB PO SCH (17:01)
[2023-05-09] MEDS: guaiFENesin 600 MG TABCR PO SCH (20:39)
[2023-05-09] MEDS: SODIUM CHLORIDE 1 GM TABLET PO SCH (20:39)
[2023-05-10 05:55] LABS: Basophils # (auto) 0.02 K/uL (0.00-0.20); Basophils % (auto) 0.4 %; Eosinophils % (auto) 3.6 %; Hematocrit (blood only) 31.7 % (37.0-47.0); Hemoglobin 11.1 g/dl (12.0-16.0); Immature Granulocytes # (auto) 0.02 K/uL (0.01-0.20); Immature Granulocytes % (auto) 0.4 %; Lymphocytes # (auto) 1.32 K/uL (1.20-3.40); Lymphocytes % (auto) 23.8 %; Mean Corpuscular Hemoglobin 31.7 pg (25.0-34.0); Mean Corpuscular Volume 90.6 fL (80.0-100.0); Mean Platelet Volume 10.6 fL (9.4-12.4); Monocytes # (auto) 0.41 K/uL (0.11-0.59); Monocytes % (auto) 7.4 %; Neutrophils # (auto) 3.57 K/uL (1.40-6.50); Neutrophils % (auto) 64.4 %; Platelet Count 203 K/uL (130-400); RDW Standard Deviation 39.8 fL (36.4-46.3); White Blood Count 5.54 K/ul (4.8-10.8)
[2023-05-10 06:11] LABS: Albumin Globulin Ratio 0.9 (0.9-2); Albumin Level 3.5 gm/dl (3.4-5.0); BUN Creatinine Ratio 16.1 (10-20); Bilirubin,Total 0.4 mg/dl (0.2-1.0); Calcium 8.8 mg/dl (8.6-10.3); Creatinine Clr Calc Pharmacy 79.8 ml/min; Est GFR (African American) 104.4 ml/min; Est GFR (Non-African American) 90.1 ml/min; Globulin 3.8 gm/dl (2.5-4.0); Potassium 3.3 mmol/L (3.5-5.1); Total Protein 7.3 gm/dl (6.0-8.3)
[2023-05-10] MEDS: POTASSIUM CHLORIDE CRTAB 20 MEQ TABCR PO STA (07:55)
[2023-05-10] MEDS: DEXTROMETHORPHAN POLYMR COMPLX 30 MG/5 ML UDP PO PRN (08:35)
--- NOTE | 2023-05-10 10:22 | Hospitalist Progress Note ---
Date of Service May 10, 2023 Assessment & Plan (1) CAP (community acquired pneumonia): Plan: Mainly acute bronchitis although clinically pneumonia given elevated procalcitonin, severity of illness and lung auscultation findings although no significant change on CXR, since she is clinically improving do not feel we need CT chest to confirm this currently. Cepheid PCR negative Ceftriaxone + azithromycin Repeat procalcitonin improving (2) Sinusitis: Plan: Not mentioned on CT head but bilateral maxillary sinus mucosal thickening noted on soft tissue neck CT. Possible cause of why her procalcitonin is so elevated without significant CXR findings Ceftriaxone 2g IV daily (3) Osteomyelitis of mandible: Plan: Doubtful this is driving her acute infection although given concern for this from oromaxillofacial surgery will consult infectious disease and recommend continued inpatient stay until her dental situation can be managed. Appreciate ongoing management of this but suspect will be more medically suitable for tooth extraction early next week rather than over the weekend given she is recovery from acute respiratory illness. Given significant improvement and MRSA nasal swab negative will defer any MRSA coverage at this time Continue ceftriaxone 2g IV daily (4) SIADH (syndrome of inappropriate ADH production): Plan: Improving Significantly elevated urine sodium and osm consistent with this. No intracranial findings on CT head to suggest cerebral salt wasting. Improving urine Na and osm suggestive this is acute secondary to infection rather than related to her prior diagnosis of pituitary adenoma Continue to fluid restrict 1L. Continue sodium chloride 1g PO BID. (5) Pituitary adenoma: Plan: Historical diagnosis. No acute symptoms suggested of this unless vasopressin se creting adenoma but suspect this is much less likely than SIADH but will consider if urine NA/osm not resolving (repeat tomorrow). (6) Dental caries: Plan: Very loose teeth with periapical lucencies. Appreciate oromaxillofacial surgery input - hopefully this can be dealt with during inpatient admission given concern for osteomyelitis ?Saturday (7) Acute bronchitis: (8) Acute hyponatremia: (9) AMS (altered mental status): Plan VTE prophylaxis - Lovenox 40 mg subcu daily Diet - regular, minced and moist, fluid restrict 1000 mL Disposition - transfer to med/surg, PT recommending acute inpatient rehabilitation Admission and Anticipated Discharge Date Admission Date: May 08, 2023 Subjective Again significant improvement in her overall mental status and generalized weakness. Tolerating minced and moist diet. No definitive coughing or choking after eating. Ongoing productive cough but much less than what has been. No fever or chills. Review of Systems Review of Systems: All systems reviewed & are unremarkable except as noted in HPI & below Physical Exam Constitutional: well developed; + not well nourished and no acute distress ENMT: external ear and nose normal, oropharynx normal Mouth: + poor dentition Neck: trachea midline, no thyromegaly Respiratory: normal respiratory effort; no respiratory distress Auscultation: + rhonchi (Throughout with improved air entry from yesterday); no crackles and no wheezes Cardiovascular: RRR, no murmur, no edema Gastrointestinal (Abdomen): normal bowel sounds, soft, nontender, no hepatosplenomegaly Musculoskeletal: no cyanosis or clubbing, extremities motor strength 5/5 Skin: no rashes, warm and dry Neurologic: moves all extremities and awake; no focal motor deficits and not confused Psychiatric: A+Ox3, euthymic affect Results & Data Results & Data Vital Signs (Past 12 Hours) Vital Signs Temp Pulse Pulse Resp BP Pulse Ox O2 Del Method 05/10/23 08:00 Room Air 05/10/23 07:56 36.6 C 63 18 105/57 L 96 Room Air 05/10/23 07:00 67 05/10/23 03:20 36.7 C 64 16 106/59 L 96 Room Air 05/10/23 01:25 64 05/09/23 23:43 36.8 C 68 16 121/62 97 Room Air PG Care Time/CCT Total # of Minutes Spent Total Time Spent with Patient: Total time spent is greater than 50% in coordination of care (as documented) at patient's floor/unit and/or counseling patient: Coding Level of Care Code 45956 SUB INP/OBS CARE 3/50MIN Diagnoses CAP (community acquired pneumonia) J18.9 Sinusitis J32.9 Osteomyelitis of mandible M27.2 SIADH (syndrome of inappropriate ADH production) E22.2 Pituitary adenoma D35.2 Dental caries K02.9 Acute bronchitis J20.9 Acute hyponatremia E87.1 AMS (altered mental status) R41.82 Altered mental status type: unspecified (9) AMS (altered mental status) Altered mental status type: unspecified Qualified Code(s): R41.82 - Altered mental status, unspecified
--- NOTE | 2023-05-10 16:46 | Oral/Maxillofacial Consult ---
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 Symptoms have been ongoing for a while. Grossly infected teeth loose teeth Aspiration risk secondary to loose teeth Significant bone destruction form ongoing dental infections osteomyelitis? Oral Exam: Finding- Gross infection, swollen gums, pus draining from tissues, associated with the infected teeth, tender gingival tissue with deep pocket formation.Teeth are in an grossly infected with significant bone destruction and removal is clinical indicated as soon as patient is cleared by medicine. Given the severity and gross infection of the bone and soft tissue consideration for doing while in hospital would be preferred given the amount of infection present. Doing as outpatient would not be in the best interest of the patient. Imaging: CT scan reviewed Grossly infected teeth and bone, large radiolucent areas present upper and lower jaw secondary to bone infection secondary to the infected teeth. Sinus involvement noted with congested nature of the lining. Severe bone loose, very loose teeth The TMJ are well positioned and no evidence of bony pathology. Evaluated the nerve/sinus relationship to the roots of the teeth. All teeth require extraction with debridement of the necrotic bone and bone cyst s Exam(s): CT NECK With Contrast IV Amt: 82 ML OPTIRAY 320 EXAM: CT Neck With Intravenous Contrast CLINICAL HISTORY: Reason for exam: Sepsis, throat pain, poor dentition ?abscess. FINDINGS: Oropharynx: Unremarkable. No significant tonsillar enlargement. No peritonsillar abscess. Hypopharynx: Unremarkable. Larynx: Unremarkable. Normal epiglottis. Trachea: Unremarkable. Retropharyngeal space: Unremarkable. Submandibular/parotid glands: Unremarkable. Glands are normal in size. Thyroid: Unremarkable. No enlarged or calcified nodules. Bones/joints: No acute fracture. Soft tissues: Unremarkable. Vasculature: No acute findings. Lymph nodes: Unremarkable. No lymphadenopathy. Sinuses: Bilateral maxillary sinus mucosal thickening. Dental: Marked periapical lucencies associated with multiple upper and lower teeth bilaterally, may represent periapical abscesses. Mottled appearance of the bones with some cortical defects of the maxilla, notably of the maxillary premolars and molars. Dental caries. No discrete rim-enhancing fluid collection. Lung apices: Unremarkable as visualized. IMPRESSION: Marked periapical lucencies associated with multiple upper and lower teeth bilaterally, may represent periapical abscesses. Mottled appearance of the bones with some cortical defects of the maxilla, notably of the maxillary premolars and molars. Dental caries. No discrete rim-enhancing fluid collection. Soft tissue: The floor of the mouth, tongue, hard/soft palate, posterior pharyngeal area all with in normal limits, no pathology or abnormal findings noted. Swollen gums, loose teeth, large bone defects upper and lower jaws Draining of put upon palpation of the gums Boggy swollen inflamed soft gingival tissue Oral Care: Overall oral care non existent! Occlusion: N/A TMJ exam: No pop, clicking, pain, good ROM, No history of TMJ injury or dysfunction Periodontal exam: Severe gingival tissue infection with evidence of significant periodontal pathology. Bone infection pus drainage Head/Neck exam: Neck is supple, FROM, Able to extend and flex neck w/o difficulty, no masses, no abnormalities, no airway issues. Treatment Plan: Await medical clearance from Hospital medicine- Discussed with Dr Mendes he feels that by Saturday Charis will be ready for the procedure. Need to get Charis in optimal condition to allow procedure--hopefully by Saturday should be OK for GA and surgery Discussed with Daughter she and Charis are on line with having the procedure done if cleared for the procedure while in the hospital Set up with general anesthesia in hospital due to complexity of the procedure I will review the treatment plan with the patient and her daughter to see how they would like to proceed. Time given for questions regarding the surgery, risks and post op care. Discussed alternative to treatment--procedure as planned, Do not do surgery now, do in future The following teeth are decayed and fractured and removal is indicated CEDIRC: ALL TEETH the teeth are in very abnormal position and exact numbers to attribute to the teeth are difficult. Large areas of radiolucent bony defects with active infection and drainage The teeth are so loose that aspiration while sleeping is a high risk. Teeth required for extraction-upper=1,3,4,5,6,11,12,13,14 lower= 20,21,22,27,28,30,32 Osteomyelitics necrotic bone lower right side and upper left Draining infection upper right/lower posterior right area Debridement of the infected bone and soft tissue to gain primary closure of the tissues Risks discussed: Bleeding,Pain,swelling,infection, dry socket, delayed healing, nerve injury to face,lips,tongue,chin area which could be permanent (rare). TMJ, jaw stiffness, change in bite (rare), ear pain (referred). Sinus problems like fistula or infection. Need to leave a small root fragment in place to avoid injury to nerve or sinus. Relationship of the bony lesions and teeth to nerve/sinus and risk of jaw fracture. If Osteomyelitis is present and b]necrotic bone will need to consider exterminator helper antibiotics Home care reviewed: Need for dentures in the future, given the severity of underlying bone and areas of necrotic bone it may take 4-5 months of healing before OK for dentures. follow up care with Dr Burt. diet=[id number]-ruct dental. Discussed activity level, while on Rx pain Meds. Surgery to be set up once cleared by medicine and discussed with Daughter (family)--This was done Expect to do the procedure Saturday in OR I will see Charis on Saturday and finalize the plan. This is much more involved then simply just extraction of the teeth Allergies Allergy/AdvReac Type Severity Reaction Status Date / Time No Known Allergies Allergy Verified 05/08/23 17:26 Home Medications Medication Instructions Recorded Confirmed Type No Known Home Medications 02/28/23 05/08/23 History Patient History Medical History No pertinent past medical history Surgical History History of brain surgery Family History Mother Diabetes Sister Diabetes Brother Hypertension Other Environmental allergies No family history of adverse response to anesthesia No family history of bleeding disorder Denies family history of Ovarian cancer Prostate cancer Myocardial infarction Breast cancer Colorectal cancer Social History Smoking Status: Never smoker Second Hand Exposure: No; Do You Dip or Chew Tobacco: No; Hx Alcohol Use: No Hx Substance Use: No Preferred Language: Micronesian Communication Ability: Effective Visual Impairment: Limited Hearing Ability: Normal Quantitative Analyst Developer Required: No Beliefs That Will Affect Care: None marital status: Single Current Living Situation: Alone and Family Current Living Situation Comment: lives with daughter, but alone most days current occupational status: retired How many Children do You have: 2 How many Children do You have Comment: 1 boy 1 girl Other Information That Helps Us Care for You: No Feels Safe at Home: Yes Safety Concerns: Feels Safe At This Time Childhood Exposure to Second-Hand Smoke: No Diet: regular during the past year weight has: remained stable Dental Care, Regularly: No Physical Activity Frequency: Does not Exercise Seatbelt Use: always Sunscreen Use: No Assistive Devices: None Review of Systems Review of Systems: Physical Exam Constitutional weak with memory loss Eyes PERRL, conjunctivae normal, anicteric sclerae Mouth grossly infected, very loose teeth--risk for aspiration Neck trachea midline, no thyromegaly Skin no rashes, warm and dry Results & Data Vital Signs (Past 12 Hours) Vital Signs Temp Pulse Pulse Resp BP BP Pulse Ox 05/10/23 15:44 36.6 C 69 18 122/65 100 05/10/23 14:17 05/10/23 11:54 36.7 C 70 18 107/66 97 05/10/23 08:00 05/10/23 07:56 36.6 C 63 18 105/57 L 96 05/10/23 07:00 67 Pulse Ox O2 Del Method O2 Flow Rate 05/10/23 15:44 Room Air 05/10/23 14:17 97 0 05/10/23 11:54 Room Air 05/10/23 08:00 Room Air 05/10/23 07:56 Room Air 05/10/23 07:00 PG Care Time/CCT Total # of Minutes Spent Total Time Spent with Patient: Total time spent is greater than 50% in coordination of care (as documented) at patient's floor/unit and/or counseling patient: Coding Level of Care Code 31524 INT INP/OBS CARE 2/55MIN Diagnoses Dental caries K02.9 Osteomyelitis of mandible M27.2 Radiolucent area in mandible M27.9 Loose, teeth K08.89 Swollen gums R22.0 Mandibular bone loss M27.9 Maxillary bone loss M27.8 Disease of gingiva due to infection K06.8; B99.9 At risk for aspiration Z91.89 Chronic maxillary sinusitis J32.0 Sinusitis location: maxillary Chronicity: chronic (10) Sinusitis Sinusitis location: maxillary Chronicity: chronic Qualified Code(s): J32.0 - Chronic maxillary sinusitis
[2023-05-11 07:20] LABS: Basophils # (auto) 0.02 K/uL (0.00-0.20); Basophils % (auto) 0.5 %; Eosinophils # (auto) 0.25 K/uL (0.00-0.50); Hematocrit (blood only) 30.4 % (37.0-47.0); Hemoglobin 11.1 g/dl (12.0-16.0); Lymphocytes # (auto) 1.69 K/uL (1.20-3.40); Lymphocytes % (auto) 40.7 %; Mean Corpuscular Hemoglobin 32.8 pg (25.0-34.0); Mean Corpuscular Hgb Conc 36.5 g/dL (32.0-36.0); Mean Corpuscular Volume 89.9 fL (80.0-100.0); Mean Platelet Volume 10.4 fL (9.4-12.4); Monocytes % (auto) 9.6 %; Neutrophils # (auto) 1.79 K/uL (1.40-6.50); Neutrophils % (auto) 43.2 %; Platelet Count 219 K/uL (130-400); RDW Coefficient of Variation 12.3 % (11.5-14.5); RDW Standard Deviation 40.8 fL (36.4-46.3); Red Blood Count 3.38 M/uL (4.20-5.40); White Blood Count 4.15 K/ul (4.8-10.8)
[2023-05-11 07:37] LABS: Albumin Level 3.6 gm/dl (3.4-5.0); BUN Creatinine Ratio 17.2 (10-20); Bilirubin,Total 0.4 mg/dl (0.2-1.0); C Reactive Protein 9.53 mg/dl (0-0.5); Calcium 9.1 mg/dl (8.6-10.3); Creatinine Clr Calc Pharmacy 85.3 ml/min; Est GFR (African American) 106.7 ml/min; Est GFR (Non-African American) 92.1 ml/min; Globulin 3.7 gm/dl (2.5-4.0); Potassium 3.8 mmol/L (3.5-5.1); Total Protein 7.3 gm/dl (6.0-8.3)
--- NOTE | 2023-05-11 13:34 | Hospitalist Progress Note ---
Date of Service May 11, 2023 Assessment & Plan (1) CAP (community acquired pneumonia): Plan: Clinically much improved Blood cultures negative so far Continue empiric IV ceftriaxone and azithromycin Patient saturating well on room air. (2) Osteomyelitis of mandible: Plan: Teeth are grossly infected with significant bone destruction and plan is removal of almost all the teeth and surgery on Saturday. Patient will require dentures some months after surgery (3) Sinusitis: Plan: Not mentioned on CT head but bilateral maxillary sinus mucosal thickening noted on soft tissue neck CT. Possible cause of why her procalcitonin is so elevated without significant CXR findings Ceftriaxone 2g IV daily (4) SIADH (syndrome of inappropriate ADH production): Plan: Improving Significantly elevated urine sodium and osm consistent with this. No intracranial findings on CT head to suggest cerebral salt wasting. Improving urine Na and osm suggestive this is acute secondary to infection rather than related to her prior diagnosis of pituitary adenoma Continue to fluid restrict 1L. Continue sodium chloride 1g PO BID. (5) Pituitary adenoma: Plan: Historical diagnosis. No acute symptoms suggested of this unless vasopressin secreting adenoma but suspect this is much less likely than SIADH but will consider if urine NA/osm not resolving (6) Dental caries: Plan: Very loose teeth with periapical lucencies. Appreciate oromaxillofacial surgery input Plan is for dental procedure Saturday (7) Acute bronchitis: (8) Acute hyponatremia: (9) AMS (altered mental status): Plan VTE prophylaxis - Lovenox 40 mg subcu daily Diet - regular, minced and moist, fluid restrict 1000 mL Disposition -continue hospitalization Admission and Anticipated Discharge Date Admission Date: May 08, 2023 Subjective Patient seen and examined, daughter by the bedside, saturating well on room air denies shortness of breath or chest pain. Review of Systems Review of Systems: All systems reviewed are negative, apart from the ones contained in the history. Physical Exam Physical Exam: The patient is awake, alert and oriented 3, well developed and well nourished, normocephalic and atraumatic, lying in bed and in no acute distress. HEENT--poor dentition Neck--supple. No JVD. No bruits. Thyroid normal, trachea midline, no adenopathy. Heart--normal S1 and S2. No murmurs, rubs or gallops. Lungs--clear bilaterally, no respiratory distress, no accessory muscle use. Abdomen--normal bowel sounds and soft. Mild epigastric and left sided abdominal pain Extremities--no cyanosis or clubbing. No edema. Dermatologic--normal skin turgor, normal color, no abnormal lymph nodes, no rash. Neurologic--cranial nerves II through XII grossly intact. Rheumatologic--normal range of motion. Psychiatric--normal affect. Results & Data Results & Data Vital Signs (Past 12 Hours) Vital Signs Temp Pulse Resp BP Pulse Ox O2 Del Method 05/11/23 09:41 98.1 F 64 18 110/52 L 96 Room Air 05/11/23 04:00 Room Air 05/11/23 01:32 Room Air PG Care Time/CCT Total # of Minutes Spent Total Time Spent with Patient: Total time spent is greater than 50% in coordination of care (as documented) at patient's floor/unit and/or counseling patient: Coding Level of Care Code 83605 SUB INP/OBS CARE 2/35MIN Diagnoses CAP (community acquired pneumonia) J18.9 Osteomyelitis of mandible M27.2 Sinusitis J32.9 SIADH (syndrome of inappropriate ADH production) E22.2 Pituitary adenoma D35.2 Dental caries K02.9 Acute bronchitis J20.9 Acute hyponatremia E87.1 AMS (altered mental status) R41.82 Altered mental status type: unspecified Time Spent (min) 35 (9) AMS (altered mental status) Altered mental status type: unspecified Qualified Code(s): R41.82 - Altered mental status, unspecified
[2023-05-12 06:01] LABS: Hematocrit (blood only) 30.7 % (37.0-47.0); Hemoglobin 10.6 g/dl (12.0-16.0); Mean Corpuscular Hemoglobin 31.9 pg (25.0-34.0); Mean Corpuscular Hgb Conc 34.5 g/dL (32.0-36.0); Mean Corpuscular Volume 92.5 fL (80.0-100.0); Mean Platelet Volume 10.5 fL (9.4-12.4); Platelet Count 249 K/uL (130-400); RDW Coefficient of Variation 12.5 % (11.5-14.5); RDW Standard Deviation 42.3 fL (36.4-46.3); Red Blood Count 3.32 M/uL (4.20-5.40); White Blood Count 4.01 K/ul (4.8-10.8)
[2023-05-12 06:18] LABS: Albumin Level 3.6 gm/dl (3.4-5.0); BUN Creatinine Ratio 20.3 (10-20); Bilirubin,Total 0.3 mg/dl (0.2-1.0); Calcium 9.3 mg/dl (8.6-10.3); Creatinine Clr Calc Pharmacy 83.8 ml/min; Est GFR (African American) 106.1 ml/min; Est GFR (Non-African American) 91.6 ml/min; Globulin 3.7 gm/dl (2.5-4.0); Potassium 3.8 mmol/L (3.5-5.1); Total Protein 7.3 gm/dl (6.0-8.3)
[2023-05-12 07:00] LABS: Basophils # (auto) 0.02 K/uL (0.00-0.20); Basophils % (auto) 0.5 %; Eosinophils # (auto) 0.22 K/uL (0.00-0.50); Eosinophils % (auto) 5.5 %; Immature Granulocytes # (auto) 0.01 K/uL (0.01-0.20); Immature Granulocytes % (auto) 0.2 %; Lymphocytes # (auto) 2.03 K/uL (1.20-3.40); Lymphocytes % (auto) 50.6 %; Monocytes # (auto) 0.24 K/uL (0.11-0.59); Neutrophils # (auto) 1.49 K/uL (1.40-6.50); Neutrophils % (auto) 37.2 %; RBC Morphology Unremarkable
--- NOTE | 2023-05-12 10:15 | Oral/Maxillofacial Progress Nt ---
Date of Service May 12, 2023 Assessment & Plan Admission and Anticipated Discharge Date Admission Date: May 08, 2023 Subjective Treatment Plan: Debridement of all the infected soft tissue, necrotic bone, granulation tissue and extremely loose teeth. Set up with general anesthesia in hospital l due to complexity of the procedure I reviewed the treatment plan and consent with the patient and her daughter on multiply occasions Understanding was expressed. Time was given for questions regarding the surgery, risks and post op care. Discussed alternative to treatment--procedure as planned, Do not do surgery All the teeth are decayed, loose and fractured and removal is indicated, the teeth are in very abnormal position due to migration there are about 10-15 teeth, the majority of the problem is the swollen and hyperplastic tissue and necrotic bone Risks discussed: Bleeding,Pain,swelling,infection, dry socket, delayed healing, nerve injury to face,lips,tongue,chin area which could be permanent (rare). TMJ, jaw stiffness, change in bite (rare), ear pain (referred). Sinus problems like fistula or infection. Need to leave a small root fragment in place to avoid injury to nerve or sinus. Relationship of wisdom teeth to nerve/sinus and risk of jaw fracture. Need at least 3-4 months of healing before dentures. Extremely infected bone with a very irregular ridge form Home care reviewed: follow up care with Dr Burt. diet=[id number] dental. Surgery to be set up Saturday in OR as an urgent case. Medically cleared as per Hospitalist note Consent signed NPO 12 midnight For OR tomorrow--Time ? Results & Data Vital Signs (Past 12 Hours) Vital Signs Temp Pulse Resp BP Pulse Ox O2 Del Method 05/12/23 09:12 36.7 C 62 18 114/74 98 Room Air PG Care Time/CCT Total # of Minutes Spent Total Time Spent with Patient: Total time spent is greater than 50% in coordination of care (as documented) at patient's floor/unit and/or counseling patient: Coding Level of Care Code 38776 SUB INP/OBS CARE 04/11MIN
--- NOTE | 2023-05-12 11:40 | Hospitalist Progress Note ---
Date of Service May 12, 2023 Assessment & Plan (1) CAP (community acquired pneumonia): Plan: Clinically much improved Blood cultures negative so far Continue empiric IV ceftriaxone and azithromycin Patient saturating well on room air. (2) Osteomyelitis of mandible: Plan: Teeth are grossly infected with significant bone destruction and plan is removal of almost all the teeth and surgery on Saturday. Patient will require dentures some months after surgery Patient is clinically stable and clinically cleared for surgery on Saturday (3) Sinusitis: Plan: Not mentioned on CT head but bilateral maxillary sinus mucosal thickening noted on soft tissue neck CT. Possible cause of why her procalcitonin is so elevated without significant CXR findings Ceftriaxone 2g IV daily (4) SIADH (syndrome of inappropriate ADH production): Plan: Improving Significantly elevated urine sodium and osm consistent with this. No intracranial findings on CT head to suggest cerebral salt wasting. Improving urine Na and osm suggestive this is acute secondary to infection rather than related to her prior diagnosis of pituitary adenoma Continue to fluid restrict 1L. Continue sodium chloride 1g PO BID. (5) Pituitary adenoma: Plan: Historical diagnosis. No acute symptoms suggested of this unless vasopressin secreting adenoma but suspect this is much less likely than SIADH but will consider if urine NA/osm not resolving (6) Dental caries: Plan: Very loose teeth with periapical lucencies. Appreciate oromaxillofacial surgery input Plan is for dental procedure Saturday Patient is clinically stable clinically cleared for surgery tomorrow. (7) Acute bronchitis: (8) Acute hyponatremia: (9) AMS (altered mental status): Plan VTE prophylaxis - Lovenox 40 mg subcu daily Diet - regular, minced and moist, fluid restrict 1000 mL Disposition -continue hospitalization Admission and Anticipated Discharge Date Admission Date: May 08, 2023 Subjective Patient seen and examined, plan is for surgery tomorrow Review of Systems Review of Systems: All systems reviewed are negative, apart from the ones contained in the history. Physical Exam Physical Exam: The patient is awake, alert and oriented 3, well developed and well nourished, normocephalic and atraumatic, lying in bed and in no acute distress. HEENT--poor dentition Neck--supple. No JVD. No bruits. Thyroid normal, trachea midline, no adenopathy. Heart--normal S1 and S2. No murmurs, rubs or gallops. Lungs--clear bilaterally, no respiratory distress, no accessory muscle use. Abdomen--normal bowel sounds and soft. Mild epigastric and left sided abdominal pain Extremities--no cyanosis or clubbing. No edema. Dermatologic--normal skin turgor, normal color, no abnormal lymph nodes, no rash. Neurologic--cranial nerves II through XII grossly intact. Rheumatologic--normal range of motion. Psychiatric--normal affect. Results & Data Results & Data Vital Signs (Past 12 Hours) Vital Signs Temp Pulse Resp BP Pulse Ox O2 Del Method 05/12/23 10:50 Room Air 05/12/23 09:12 98.1 F 62 18 114/74 98 Room Air PG Care Time/CCT Total # of Minutes Spent Total Time Spent with Patient: Total time spent is greater than 50% in coordination of care (as documented) at patient's floor/unit and/or counseling patient: Coding Level of Care Code 82960 SUB INP/OBS CARE 2/35MIN Diagnoses CAP (community acquired pneumonia) J18.9 Osteomyelitis of mandible M27.2 Chronic maxillary sinusitis J32.0 Sinusitis location: maxillary Chronicity: chronic SIADH (syndrome of inappropriate ADH production) E22.2 Pituitary adenoma D35.2 Dental caries K02.9 Acute bronchitis J20.9 Acute hyponatremia E87.1 AMS (altered mental status) R41.82 Altered mental status type: unspecified Time Spent (min) 35 (3) Sinusitis Sinusitis location: maxillary Chronicity: chronic Qualified Code(s): J32.0 - Chronic maxillary sinusitis (9) AMS (altered mental status) Altered mental status type: unspecified Qualified Code(s): R41.82 - Altered mental status, unspecified
--- NOTE | 2023-05-12 11:48 | Anesthesiology Consultation ---
Date of Service May 12, 2023 Assessment & Plan (1) Encounter for pre-operative examination: Chart Review Chart Review: Acceptable Risk for Surgery History Surgery Operation Date: 05/13/23 07:30 Proposed Procedures p Extraction of teeth and Necrotic Bone - Michele Burt, OSIRIS Height/Weight Height: 5 ft 7 in Weight: 61.8 kg Allergies Allergy/AdvReac Type Severity Reaction Status Date / Time No Known Allergies Allergy Verified 05/08/23 17:26 Medications Home Medications Medication Instructions Recorded Confirmed Last Taken No Known Home Medications 02/28/23 05/08/23 Unknown Active Medications Generic Name Dose Route Start Last Admin Trade Name Freq PRN Reason Stop Dose Admin Acetaminophen 650 mg 05/08/23 21:09 05/09/23 13:10 Acetaminophen 325 Mg Tab PO 06/07/23 21:08 650 mg Q4H PRN Administration Pain or Fever Azithromycin 250 mg 05/09/23 16:30 05/11/23 15:54 Azithromycin 250 Mg Tab PO 05/16/23 16:29 250 mg QDD JEREMY Administration Chlorhexidine Gluconate 15 ml 05/09/23 13:35 05/09/23 15:58 Chlorhexidine Gluconate 0.12% 480 Ml MT 06/08/23 13:34 15 ml Q6H PRN Administration throat pain Dextromethorphan Polymer Complex 30 mg 05/09/23 17:33 05/10/23 08:35 Dextromethorphan Polymr Complx 30 Mg/5 Ml Udp PO 06/08/23 17:32 30 mg Q12H PRN Administration Cough Enoxaparin Sodium 40 mg 05/08/23 22:00 05/11/23 20:17 Enoxaparin Inj 40 Mg/0.4 Ml Syr SQ 06/07/23 21:59 40 mg Q24H JEREMY Administration Guaifenesin 1,200 mg 05/09/23 21:00 05/12/23 08:49 Guaifenesin 600 Mg Tabcr PO 06/08/23 20:59 1,200 mg Q12 JEREMY Administration Ceftriaxone Sodium 2,000 mg/ 50 mls @ 100 mls/hr 05/09/23 16:00 05/11/23 16:27 Dextrose IV 05/16/23 15:59 Infused Q24H JEREMY Infusion Protocol Menthol 1 saima 05/09/23 07:56 05/09/23 09:58 Cough Drop (Sugar Free) Saima 24 Saima/1 Box BUCCAL 06/08/23 07:55 1 saima NOW PRN Administration Sore Throat Sodium Chloride 1 gm 05/09/23 21:00 05/12/23 08:49 Sodium Chloride 1 Gm Tablet PO 06/08/23 20:59 1 gm BID JEREMY Administration Past Medical History Medical History (Updated 05/12/23 @ 11:48 by Jhony Joshi MD) At risk for aspiration 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 (~05/10/23) SIADH (syndrome of inappropriate ADH production) Pituitary adenoma Past Family History Family History Mother Diabetes Sister Diabetes Brother Hypertension Other Environmental allergies No family history of adverse response to anesthesia No family history of bleeding disorder Denies family history of Ovarian cancer Prostate cancer Myocardial infarction Breast cancer Colorectal cancer Past Surgical History Surgical History History of brain surgery Social History Smoking Status: Never smoker Do You Dip or Chew Tobacco: No Hx Alcohol Use: No Hx Substance Use: No Physical Exam Vital Signs Last Vital Signs Temp 36.7 C 05/12/23 09:12 Pulse 62 05/12/23 09:12 Resp 18 05/12/23 09:12 BP 114/74 05/12/23 09:12 Pulse Ox 98 05/12/23 09:12 O2 Del Method Room Air 05/12/23 10:50 O2 Flow Rate 0 05/10/23 14:17 Testing Laboratory Results 05/12/23 05:07 05/12/23 05:07 Urine Color Yellow 05/08/23 15:30 Urine Appearance Clear (Clear) 05/08/23 15:30 Urine pH 5.5 (4.5-7.5) 05/08/23 15:30 Ur Specific [place] 1.017 (1.000-1.030) 05/08/23 15:30 Urine Protein Trace (Negative) H 05/08/23 15:30 Urine Glucose (UA) Negative (Negative) 05/08/23 15:30 Urine Ketones 3+ (Negative) H 05/08/23 15:30 Urine Nitrite Negative (Negative) 05/08/23 15:30 Ur Leukocyte Esterase Trace (Negative) H 05/08/23 15:30 Urine WBC (Auto) 1-5 /hpf (0-5) 05/08/23 15:30 Urine RBC (Auto) >30 /hpf (0-4) H 05/08/23 15:30 U Hyaline Cast (Auto) 1-5 /lpf (0-5) 05/08/23 15:30 U Epithel Cells (Auto) 5-10 /lpf (0-5) H 05/08/23 15:30 Urine Bacteria (Auto) Negative (Negative) 05/08/23 15:30 05/09/23 09:25 Gram Stain - Final Sputum, Expectorated Sputum Culture - Final Moderate normal faisal. 05/08/23 20:49 Aerobic Blood Culture - Preliminary Blood No growth in Aerobic bottle after 48 hours. Anaerobic Blood Culture - Preliminary No growth in Anaerobic bottle after 48 hours. 05/08/23 20:35 Aerobic Blood Culture - Preliminary Blood No growth in Aerobic bottle after 48 hours. Anaerobic Blood Culture - Preliminary No growth in Anaerobic bottle after 48 hours. 05/08/23 20:32 Throat Culture - Final Throat Moderate normal faisal. Electrocardiogram Date: 05/09/23 Findings: + NSR @ (69) and + NSST changes
[2023-05-13 06:34] LABS: Hematocrit (blood only) 31.7 % (37.0-47.0); Hemoglobin 10.8 g/dl (12.0-16.0); Mean Corpuscular Hemoglobin 31.6 pg (25.0-34.0); Mean Corpuscular Hgb Conc 34.1 g/dL (32.0-36.0); Mean Corpuscular Volume 92.7 fL (80.0-100.0); Mean Platelet Volume 10.3 fL (9.4-12.4); Platelet Count 294 K/uL (130-400); RDW Coefficient of Variation 12.6 % (11.5-14.5); RDW Standard Deviation 42.8 fL (36.4-46.3); Red Blood Count 3.42 M/uL (4.20-5.40); White Blood Count 3.83 K/ul (4.8-10.8)
[2023-05-13 06:46] LABS: Albumin Globulin Ratio 0.9 (0.9-2); Albumin Level 3.7 gm/dl (3.4-5.0); BUN Creatinine Ratio 17.7 (10-20); Bilirubin,Total 0.3 mg/dl (0.2-1.0); Calcium 9.5 mg/dl (8.6-10.3); Creatinine Clr Calc Pharmacy 79.8 ml/min; Est GFR (African American) 104.4 ml/min; Est GFR (Non-African American) 90.1 ml/min; Globulin 3.9 gm/dl (2.5-4.0); Potassium 3.8 mmol/L (3.5-5.1); Total Protein 7.6 gm/dl (6.0-8.3)
[2023-05-13 07:06] LABS: Basophils # (auto) 0.02 K/uL (0.00-0.20); Basophils % (auto) 0.5 %; Eosinophils # (auto) 0.23 K/uL (0.00-0.50); Lymphocytes # (auto) 2.42 K/uL (1.20-3.40); Lymphocytes % (auto) 63.2 %; Monocytes # (auto) 0.25 K/uL (0.11-0.59); Monocytes % (auto) 6.5 %; Neutrophils # (auto) 0.91 K/uL (1.40-6.50); Neutrophils % (auto) 23.8 %
[2023-05-13] MEDS ORDERED: ATROPINE SULFATE 0.1 MG/ML 10ML SYR IV PRN (07:07)
[2023-05-13] MEDS ORDERED: ONDANSETRON INJ 2 MG/ML 2 ML VIAL IV PRN (07:07)
[2023-05-13] MEDS ORDERED: ePHEDrine sulfate 50 MG/ML AMP IV PRN (07:07)
[2023-05-13] MEDS ORDERED: LIDOCAINE 2% 2 ML VIAL/AMP(20MG/ML) INFIL ONE (07:16)
[2023-05-13] MEDS ORDERED: PROPOFOL IV EMULSION 10 MG/ML 20 ML VIAL IV ONE (07:16)
[2023-05-13] MEDS ORDERED: MIDAZOLAM HCL 1 MG/ML 2ML VIAL ONE (07:16)
[2023-05-13] MEDS ORDERED: SUCCINYLCHOLINE CHLORIDE 20 MG/ML 10 ML VIAL IV ONE (07:16)
[2023-05-13] MEDS ORDERED: fentaNYL citrate PF 100 MCG/2 ML VIAL ONE (07:17)
[2023-05-13] MEDS ORDERED: OXYMETAZOLINE 0.05% 30 ML BTL ONE (07:29)
[2023-05-13] MEDS: LACTATED RINGER'S 1,000 ML IV SCH (07:33)
--- NOTE | 2023-05-13 08:01 | History & Physical Bridge Note ---
Date of Service May 13, 2023 History & Physical Bridge Note I have examined the patient, reviewed the History & Physical and in the interval since the performance of the History & Physical I have noted the following changes of clinical significance: no changes noted OK for the planned surgery this morning
[2023-05-13] MEDS ORDERED: ONDANSETRON INJ 2 MG/ML 2 ML VIAL ONE (08:37)
[2023-05-13] MEDS ORDERED: ROCURONIUM BROMIDE 10 MG/ML 5 ML VIAL IV ONE (08:49)
[2023-05-13] MEDS: BUPIVACAINE/EPINEPHRINE 0.5% 1:200,000 1.8 ML CARP ONE ×2 (09:53)
[2023-05-13] MEDS ORDERED: ePHEDrine sulfate 50 MG/5 ML SYR ONE (10:19)
--- NOTE | 2023-05-13 10:29 | Post Operative Brief Note ---
PG Immediate Post Op with CF Date of Surgery May 13, 2023 Pre & Post Diagnosis Operation Date: 05/13/23 09:20 <No data on this case meets the specified criteria> I identified the patient and participated in the time-out.: Yes Procedure Operation Date: 05/13/23 09:20 <No data on this case meets the specified criteria> Surgeon Michele Burt, DMD [place] none Estimated Blood Loss 15 Findings Consistent with Post-Op Diagnosis grossly infected bone, soft tissue and teeth Sinus fistula Osteomyelitis Specimens Specimen Description: A. necrotic tissue of maxilla B. hard and soft tissue of maxilla C. soft infected tissue of mandible D. necrotic bone of mandible Complications none Disposition Accompanied Patient To Recovery: Yes
[2023-05-13] MEDS: fentaNYL citrate PF 100 MCG/2 ML VIAL IV PRN (10:57)
--- NOTE | 2023-05-13 11:30 | Anesthesiology Progress Note ---
Date of Service May 13, 2023 Anesthesia Post Procedure Vital Signs Vital Signs: Temp Pulse Pulse Resp BP BP Pulse Ox 05/13/23 11:25 58 L 12 131/61 99 05/13/23 11:15 56 L 10 L 143/67 H 100 05/13/23 11:05 57 L 12 136/64 98 05/13/23 10:55 63 18 137/66 96 05/13/23 10:45 61 18 152/64 H 100 05/13/23 10:35 97.0 F L 65 14 136/60 100 05/13/23 07:24 97.7 F 52 L 18 128/50 L 95 05/13/23 07:00 05/12/23 21:15 05/12/23 20:46 97.7 F 50 L 15 107/54 L 96 05/12/23 17:13 97.3 F L 56 L 18 105/58 L 98 O2 Del Method O2 Flow Rate 05/13/23 11:25 Nasal Cannula 2 05/13/23 11:15 Nasal Cannula 2 05/13/23 11:05 Nasal Cannula 2 05/13/23 10:55 Room Air 05/13/23 10:45 Oxymask 9 05/13/23 10:35 Oxymask 9 05/13/23 07:24 Room Air 05/13/23 07:00 Room Air 05/12/23 21:15 Room Air 05/12/23 20:46 Room Air 05/12/23 17:13 Room Air Pain Intensity Throat: Pain Intensity: 0 Mouth: Pain Intensity: 5 Transfer of Care Handoff Completed per policy Notes Mental Status: alert / awake / arousable and participated in evaluation Patient Amnestic to Procedure: Yes Nausea / Vomiting: adequately controlled Pain: adequately controlled Airway Patency, RR, SpO2: stable & adequate BP & HR: stable & adequate Hydration State: stable & adequate Anesthetic Complications: no major complications apparent and Pt Satisfied with anesthetic care
--- NOTE | 2023-05-13 12:42 | Hospitalist Progress Note ---
Date of Service May 13, 2023 Assessment & Plan (1) CAP (community acquired pneumonia): Plan: Clinically much improved Blood cultures negative so far On account of agranulocytosis and cytopenia, antibiotic has been changed to IV Unasyn Patient saturating well on room air. (2) Osteomyelitis of mandible: Plan: Teeth are grossly infected with significant bone destruction and plan is removal of almost all the teeth and surgery today Prior maxillofacial surgery, specimen showed necrotic maxilla and mandible Patient will require dentures some months after surgery In view of agranulocytosis and cytopenia, antibiotics changed to IV Unasyn (3) Sinusitis: Plan: Not mentioned on CT head but bilateral maxillary sinus mucosal thickening noted on soft tissue neck CT. Possible cause of why her procalcitonin is so elevated without significant CXR findings (4) SIADH (syndrome of inappropriate ADH production): Plan: Improving Significantly elevated urine sodium and osm consistent with this. No intracranial findings on CT head to suggest cerebral salt wasting. Improving urine Na and osm suggestive this is acute secondary to infection rather than related to her prior diagnosis of pituitary adenoma Continue to fluid restrict 1L. Continue sodium chloride 1g PO BID. (5) Pituitary adenoma: Plan: Historical diagnosis. No acute symptoms suggested of this unless vasopressin secreting adenoma but suspect this is much less likely than SIADH but will consider if urine NA/osm not resolving (6) Dental caries: Plan: Very loose teeth with periapical lucencies. Appreciate oromaxillofacial surgery input Patient is now status post surgery (7) Acute bronchitis: (8) Acute hyponatremia: (9) AMS (altered mental status): Plan VTE prophylaxis - Lovenox 40 mg subcu daily Diet - regular, minced and moist, fluid restrict 1000 mL Disposition -continue hospitalization Admission and Anticipated Discharge Date Admission Date: May 08, 2023 Subjective Patient seen and examined, plan is for surgery tomorrow Physical Exam Physical Exam: The patient is awake, alert and oriented 3, well developed and well nourished, normocephalic and atraumatic, lying in bed and in no acute distress. HEENT--poor dentition Neck--supple. No JVD. No bruits. Thyroid normal, trachea midline, no adenopathy. Heart--normal S1 and S2. No murmurs, rubs or gallops. Lungs--clear bilaterally, no respiratory distress, no accessory muscle use. Abdomen--normal bowel sounds and soft. Mild epigastric and left sided abdominal pain Extremities--no cyanosis or clubbing. No edema. Dermatologic--normal skin turgor, normal color, no abnormal lymph nodes, no rash. Neurologic--cranial nerves II through XII grossly intact. Rheumatologic--normal range of motion. Psychiatric--normal affect. Results & Data Results & Data Vital Signs (Past 12 Hours) Vital Signs Temp Pulse Pulse Resp BP BP Pulse Ox 05/13/23 12:10 96.1 F L 57 L 14 137/72 100 05/13/23 11:45 98.1 F 59 L 12 130/60 100 05/13/23 11:35 98.1 F 63 16 151/65 H 100 05/13/23 11:25 58 L 12 131/61 99 05/13/23 11:15 56 L 10 L 143/67 H 100 05/13/23 11:05 57 L 12 136/64 98 05/13/23 10:55 63 18 137/66 96 05/13/23 10:45 61 18 152/64 H 100 05/13/23 10:35 97.0 F L 65 14 136/60 100 05/13/23 07:24 97.7 F 52 L 18 128/50 L 95 05/13/23 07:00 O2 Del Method O2 Flow Rate 05/13/23 12:10 Nasal Cannula 2 05/13/23 11:45 Nasal Cannula 2 05/13/23 11:35 Nasal Cannula 2 05/13/23 11:25 Nasal Cannula 2 05/13/23 11:15 Nasal Cannula 2 05/13/23 11:05 Nasal Cannula 2 05/13/23 10:55 Room Air 05/13/23 10:45 Oxymask 9 05/13/23 10:35 Oxymask 9 05/13/23 07:24 Room Air 05/13/23 07:00 Room Air PG Care Time/CCT Total # of Minutes Spent Total Time Spent with Patient: Total time spent is greater than 50% in coordination of care (as documented) at patient's floor/unit and/or counseling patient: Coding Level of Care Code 72772 SUB INP/OBS CARE 2/35MIN Diagnoses CAP (community acquired pneumonia) J18.9 Osteomyelitis of mandible M27.2 Chronic maxillary sinusitis J32.0 Sinusitis location: maxillary Chronicity: chronic SIADH (syndrome of inappropriate ADH production) E22.2 Pituitary adenoma D35.2 Dental caries K02.9 Acute bronchitis J20.9 Acute hyponatremia E87.1 AMS (altered mental status) R41.82 Altered mental status type: unspecified Time Spent (min) 35 (3) Sinusitis Sinusitis location: maxillary Chronicity: chronic Qualified Code(s): J32.0 - Chronic maxillary sinusitis (9) AMS (altered mental status) Altered mental status type: unspecified Qualified Code(s): R41.82 - Altered mental status, unspecified
[2023-05-13] MEDS: KETOROLAC TROMETHAMINE 15 MG/ML VIAL IV PRN (13:01)
[2023-05-13] MEDS: oxyCODONE HCL IR 5 MG TAB (IMMEDIATE RELEASE) PO PRN (13:02)
[2023-05-13] MEDS: AMPICILLIN/SULBACTAM SOD 3,000 MG in SODIUM CHLOR 0.9% MINI-B 100 ML IV SCH (14:23)
--- NOTE | 2023-05-13 15:41 | Infectious Disease Consult ---
Date of Consultation May 13, 2023 Assessment & Plan (1) Osteomyelitis of mandible: (2) CAP (community acquired pneumonia): (3) Dental caries: Plan 73yo F with h/o pituitary adenoma who presented on 05/08 with cough, congestion, and weakness x 4 days. Initial labs with WBC 11.81>>4.01, Cr wnl, AST/ALT wnl. Troponin elevated. PCT 7.12. UA with 1-5 WBC. MRSA screen neg. COVID/flu/RSV neg. Group A Strep neg. CXR with peribronchial thickening c/w infectious/inflammatory airways disease or viral pneumonia, no aristides consolidation. CTH negative. She was admitted with c/f CAP and hyponatremia. She started on treatment for CAP. CT neck done which showed marked periapical lucencies associated with multiple upper and lower teeth bl, may represent periapical abscesses; mottled appearance of the bones with some cortical defects of the maxilla, notably of the maxillary premolars and molars; dental caries, no collections. CXR on 05/09 with mild R infrahilar and L retrocardiac opacities may represent atelectasis vs mild pneumonitis. She was seen by OMFS and is now s/p OR on 05/13 for teeth extraction (per note, she had grossly infected bone, soft tissue and teeth, sinus fistula, OM). Unfortunately I have not been able to see patient as she was in the OR the am and no telepresenter this afternoon. Regarding osteomyelitis, she will need a prolonged course of antibiotics. I will follow up final operative note. Given extent of infection, I would favor IV antibiotics for the duration of 6 weeks, regimen to be determined by whether any specimens were sent for culture from the OR. If not, then we can use Unasyn. Regarding c/f PNA, she has received adequate duration of azithromycin and I would favor stopping at this time. # Osteomyelitis of mandible # Dental caries # Pneumonia - agree with changing abx Unasyn 3g IV q6h - Deepthi stopped azithromycin as she has received about 6 days of therapy - f/u cultures and path if these were sent from OR - will plan for 6 weeks of antibiotics, regimen to be determined by further results ID will continue to follow. If questions or concerns, contact Infectious Disease Call Center . Oxana Reed MD [facility], Division of Infectious Diseases [facility]: [phone] Consultation Information This patient recommendation is based on a telemedicine consult request which was completed asynchronously through chart review and information provided by the primary physician. The patient was not seen or examined today. The evaluation is consultative in nature and all patient care and treatment decisions can either be accepted or rejected by the patient's primary hospital-based treating physician using their own independent medical judgment for their patient. Nursing Specialist contact information: Please call [facility] Connect Call Center . (Phone Number For Physician Use Only) Time Spent Reviewing Chart: 31+ minutes History of Present Illness Reason for Consultation: Jaw osteomyelitis Attending Physician: Jayce Curiel MD History of Present Illness 73yo F with h/o pituitary adenoma who presented on 05/08 with cough, congestion, and weakness. Symptoms had started 4 days prior with cough and rhinorrhea. She had taken Mucinex and was getting better but cough returned the day prior and then developed disorientation and generalized weakness. She also reported chest pain with cough, poor PO intake x 2 days. She did not report diarrhea, n/v, SOB, dysuria at home. No sick contacts. Initial labs with WBC 11.81>>4.01, Cr wnl, AST/ALT wnl. Troponin elevated. PCT 7.12. UA with 1-5 WBC. MRSA screen neg. COVID/flu/RSV neg. Group A Strep neg. CXR with peribronchial thickening c/w infectious/inflammatory airways disease or viral pneumonia, no aristides consolidation. CTH negative. She was admitted with c/f CAP and hyponatremia. She started on treatment for CAP. CT neck done which showed marked periapical lucencies associated with multiple upper and lower teeth bl, may represent periapical abscesses; mottled appearance of the bones with some cortical defects of the maxilla, notably of the maxillary premolars and molars; dental caries, no collections. CXR on 05/09 with mild R infrahilar and L retrocardiac opacities may represent atelectasis vs mild pneumonitis. She was seen by OMFS and is now s/p OR on 05/13 for teeth extraction (per note, she had grossly infected bone, soft tissue and teeth, sinus fistula, OM). 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 (~05/10/23) SIADH (syndrome of inappropriate ADH production) Pituitary adenoma Surgical History History of brain surgery Family History Mother Diabetes Sister Diabetes Brother Hypertension Other Environmental allergies No family history of adverse response to anesthesia No family history of bleeding disorder Denies family history of Ovarian cancer Prostate cancer Myocardial infarction Breast cancer Colorectal cancer Social History Smoking Status: Never smoker Second Hand Exposure: No; Do You Dip or Chew Tobacco: No; Hx Alcohol Use: No Hx Substance Use: No Preferred Language: Moldovan Communication Ability: Effective Visual Impairment: Limited Hearing Ability: Normal 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 Beliefs That Will Affect Care: None marital status: Single Current Living Situation: Alone and Family Current Living Situation Comment: lives with daughter, but alone most days current occupational status: retired How many Children do You have: 2 How many Children do You have Comment: 1 boy 1 girl Other Information That Helps Us Care for You: No Feels Safe at Home: Yes Safety Concerns: Feels Safe At This Time Childhood Exposure to Second-Hand Smoke: No Diet: regular during the past year weight has: remained stable Dental Care, Regularly: No Physical Activity Frequency: Does not Exercise Seatbelt Use: always Sunscreen Use: No Assistive Devices: None Results & Data Vital Signs (Past 12 Hours) Vital Signs Temp Pulse Pulse Resp BP BP Pulse Ox 05/13/23 15:11 36.2 C L 58 L 16 115/67 98 05/13/23 14:11 36.2 C L 58 L 16 110/64 97 05/13/23 13:11 36.2 C L 61 14 126/63 97 05/13/23 12:41 35.7 C L 61 16 131/67 98 05/13/23 12:10 35.6 C L 57 L 14 137/72 100 05/13/23 11:45 36.7 C 59 L 12 130/60 100 05/13/23 11:35 36.7 C 63 16 151/65 H 100 05/13/23 11:25 58 L 12 131/61 99 05/13/23 11:15 56 L 10 L 143/67 H 100 05/13/23 11:05 57 L 12 136/64 98 05/13/23 10:55 63 18 137/66 96 05/13/23 10:45 61 18 152/64 H 100 05/13/23 10:35 36.1 C L 65 14 136/60 100 05/13/23 07:24 36.5 C 52 L 18 128/50 L 95 05/13/23 07:00 O2 Del Method O2 Flow Rate 05/13/23 15:11 Room Air 05/13/23 14:11 Room Air 05/13/23 13:11 Room Air 05/13/23 12:41 Room Air 05/13/23 12:10 Nasal Cannula 2 05/13/23 11:45 Nasal Cannula 2 05/13/23 11:35 Nasal Cannula 2 05/13/23 11:25 Nasal Cannula 2 05/13/23 11:15 Nasal Cannula 2 05/13/23 11:05 Nasal Cannula 2 05/13/23 10:55 Room Air 05/13/23 10:45 Oxymask 9 05/13/23 10:35 Oxymask 9 05/13/23 07:24 Room Air 05/13/23 07:00 Room Air Laboratory Results Labs reviewed Diagnostic Findings Imaging reviewed
[2023-05-14 08:37] LABS: Basophils # (auto) 0.03 K/uL (0.00-0.20); Basophils % (auto) 0.5 %; Eosinophils # (auto) 0.29 K/uL (0.00-0.50); Eosinophils % (auto) 5.1 %; Hematocrit (blood only) 31.3 % (37.0-47.0); Hemoglobin 10.6 g/dl (12.0-16.0); Immature Granulocytes # (auto) 0.02 K/uL (0.01-0.20); Immature Granulocytes % (auto) 0.4 %; Lymphocytes % (auto) 29.8 %; Mean Corpuscular Hemoglobin 31.8 pg (25.0-34.0); Mean Corpuscular Hgb Conc 33.9 g/dL (32.0-36.0); Mean Platelet Volume 10.2 fL (9.4-12.4); Monocytes # (auto) 0.44 K/uL (0.11-0.59); Monocytes % (auto) 7.7 %; Neutrophils # (auto) 3.22 K/uL (1.40-6.50); Neutrophils % (auto) 56.5 %; Platelet Count 329 K/uL (130-400); RDW Coefficient of Variation 12.9 % (11.5-14.5); RDW Standard Deviation 44.2 fL (36.4-46.3); Red Blood Count 3.33 M/uL (4.20-5.40)
[2023-05-14 09:04] LABS: Albumin Level 3.5 gm/dl (3.4-5.0); BUN Creatinine Ratio 15.4 (10-20); Bilirubin,Total 0.4 mg/dl (0.2-1.0); Calcium 9.2 mg/dl (8.6-10.3); Creatinine Clr Calc Pharmacy 76.1 ml/min; Est GFR (African American) 102.8 ml/min; Est GFR (Non-African American) 88.7 ml/min; Globulin 3.6 gm/dl (2.5-4.0); Potassium 3.9 mmol/L (3.5-5.1); Total Protein 7.1 gm/dl (6.0-8.3)
--- NOTE | 2023-05-14 11:24 | Hospitalist Progress Note ---
Date of Service May 14, 2023 Assessment & Plan (1) Osteomyelitis of mandible: Plan: Teeth are grossly infected with significant bone destruction She is stable status post removal of all the teeth Surgical specimen showed necrotic maxilla and mandible, sent to lab for pathology. Awaiting cultures Patient will require dentures some months after surgery In view of agranulocytosis and cytopenia, antibiotics changed to IV Unasyn Continue IV antibiotics. Patient will require antibiotics for at least 6 weeks per ID (2) CAP (community acquired pneumonia): Plan: Clinically much improved Blood cultures negative so far On account of agranulocytosis and cytopenia, antibiotic has been changed to IV Unasyn Patient saturating well on room air. (3) Sinusitis: Plan: Not mentioned on CT head but bilateral maxillary sinus mucosal thickening noted on soft tissue neck CT. Possible cause of why her procalcitonin is so elevated without significant CXR findings (4) SIADH (syndrome of inappropriate ADH production): Plan: Improving Significantly elevated urine sodium and osm consistent with this. No intracranial findings on CT head to suggest cerebral salt wasting. Improving urine Na and osm suggestive this is acute secondary to infection rather than related to her prior diagnosis of pituitary adenoma Continue to fluid restrict 1L. Continue sodium chloride 1g PO BID. (5) Pituitary adenoma: Plan: Historical diagnosis. No acute symptoms suggested of this unless vasopressin secreting adenoma but suspect this is much less likely than SIADH but will consider if urine NA/osm not resolving (6) Dental caries: Plan: Very loose teeth with periapical lucencies. Appreciate oromaxillofacial surgery input Patient is now status post surgery (7) Acute bronchitis: (8) Acute hyponatremia: (9) AMS (altered mental status): Plan VTE prophylaxis - Lovenox 40 mg subcu daily Diet - regular, minced and moist, fluid restrict 1000 mL Disposition -continue hospitalization Admission and Anticipated Discharge Date Admission Date: May 08, 2023 Subjective Patient seen and examined, she is clinically stable postsurgery, still has oral packing Review of Systems Review of Systems: All systems reviewed are negative, apart from the ones contained in the history. Physical Exam Physical Exam: The patient is awake, alert and oriented 3, well developed and well nourished, normocephalic and atraumatic, lying in bed and in no acute distress. HEENT--poor dentition Neck--supple. No JVD. No bruits. Thyroid normal, trachea midline, no adenopathy. Heart--normal S1 and S2. No murmurs, rubs or gallops. Lungs--clear bilaterally, no respiratory distress, no accessory muscle use. Abdomen--normal bowel sounds and soft. Mild epigastric and left sided abdominal pain Extremities--no cyanosis or clubbing. No edema. Dermatologic--normal skin turgor, normal color, no abnormal lymph nodes, no rash. Neurologic--cranial nerves II through XII grossly intact. Rheumatologic--normal range of motion. Psychiatric--normal affect. Results & Data Results & Data Vital Signs (Past 12 Hours) Vital Signs Temp Pulse Resp BP Pulse Ox O2 Del Method 05/14/23 08:00 Room Air 05/14/23 07:58 98 F 64 18 106/63 95 Room Air 05/14/23 02:22 97.3 F L 66 16 101/54 L 93 Room Air PG Care Time/CCT Total # of Minutes Spent Total Time Spent with Patient: Total time spent is greater than 50% in coordination of care (as documented) at patient's floor/unit and/or counseling patient: Coding Level of Care Code 61179 SUB INP/OBS CARE 2/35MIN Diagnoses Osteomyelitis of mandible M27.2 CAP (community acquired pneumonia) J18.9 Chronic maxillary sinusitis J32.0 Sinusitis location: maxillary Chronicity: chronic SIADH (syndrome of inappropriate ADH production) E22.2 Pituitary adenoma D35.2 Dental caries K02.9 Acute bronchitis J20.9 Acute hyponatremia E87.1 AMS (altered mental status) R41.82 Altered mental status type: unspecified Time Spent (min) 35 (3) Sinusitis Sinusitis location: maxillary Chronicity: chronic Qualified Code(s): J32.0 - Chronic maxillary sinusitis (9) AMS (altered mental status) Altered mental status type: unspecified Qualified Code(s): R41.82 - Altered mental status, unspecified
--- NOTE | 2023-05-14 16:53 | Infectious Disease Progress Nt ---
Date of Service May 14, 2023 Assessment & Plan (1) Osteomyelitis of mandible: (2) CAP (community acquired pneumonia): (3) Dental caries: Plan 73yo F with h/o pituitary adenoma who presented on 05/08 with cough, congestion, and weakness x 4 days. Initial labs with WBC 11.81>>4.01, Cr wnl, AST/ALT wnl. Troponin elevated. PCT 7.12. UA with 1-5 WBC. MRSA screen neg. COVID/flu/RSV neg. Group A Strep neg. CXR with peribronchial thickening c/w infectious/inflammatory airways disease or viral pneumonia, no aristides consolidation. CTH negative. She was admitted with c/f CAP and hyponatremia. She started on treatment for CAP. CT neck done which showed marked periapical lucencies associated with multiple upper and lower teeth bl, may represent periapical abscesses; mottled appearance of the bones with some cortical defects of the maxilla, notably of the maxillary premolars and molars; dental caries, no collections. CXR on 05/09 with mild R infrahilar and L retrocardiac opacities may represent atelectasis vs mild pneumonitis. She was seen by OMFS and is now s/p OR on 05/13 for teeth extraction (per note, she had grossly infected bone, soft tissue and teeth, sinus fistula, OM). Regarding osteomyelitis, she will need a prolonged course of antibiotics. Unfortunately, I dont think cultures were sent. She does have surgical path in process. Given extent of infection, I would favor IV antibiotics for the duration of 6 weeks. No growth in any of the cultures aside from oral faisal so will keep her on Unasyn. # Osteomyelitis of mandible # Dental caries # Pneumonia - continue Unasyn 3g IV q6h - f/u path sent from OR - will plan for 6 weeks of antibiotics with likely Unasyn ID will continue to follow. If questions or concerns, contact Infectious Disease Call Center . Oxana Reed MD [facility], Division of Infectious Diseases [facility]: [phone] Admission and Anticipated Discharge Date Admission Date: May 08, 2023 Subjective Subsequent visit was provided via telemedicine using two-way real-time interactive telecommunication between the patient and the telemedicine provider. For the duration of the visit, the provider was performing the assessment from a different facility than the patient. This includesuse of bluetooth stethoscope forauscultationperformed by the telepresenter that the telemedicine provider can hear if described in the physical exam. Concaving Machine Operator contact information: Please call [facility] Call Center [phone]. (Phone Number For Physician Use Only) After establishing a telemedicine visit, patient was: Patient was verified with two unique identifiers, Patient/authorized rep acknowledged consent and understanding and Gave permission to continue telehealth session Time Spent with Patient: Subsequent => 35 min Patient seen and examined. She denies ahving any pain. No chest pain, shortness of breath. She had a cough which is improving. Notes yellow sputum. Physical Exam Physical Exam: General: Awake, alert, no acute distress HEENT: mmm, swelling of mouth Lungs: respirations non-labored Heart: nl peripheral perfusion Abdomen: soft, NT/ND Ext: no LE edema Results & Data Vital Signs (Past 12 Hours) Vital Signs Temp Pulse Resp BP Pulse Ox O2 Del Method 05/14/23 15:01 36.7 C 58 L 14 106/57 L 92 Room Air 05/14/23 11:37 36.1 C L 66 16 102/65 97 Room Air 05/14/23 08:00 Room Air 05/14/23 07:58 36.6 C 64 18 106/63 95 Room Air
[2023-05-15 07:26] LABS: Basophils # (auto) 0.03 K/uL (0.00-0.20); Basophils % (auto) 0.7 %; Hematocrit (blood only) 32.5 % (37.0-47.0); Hemoglobin 10.6 g/dl (12.0-16.0); Immature Granulocytes # (auto) 0.01 K/uL (0.01-0.20); Immature Granulocytes % (auto) 0.2 %; Lymphocytes # (auto) 1.69 K/uL (1.20-3.40); Lymphocytes % (auto) 39.3 %; Mean Corpuscular Hemoglobin 31.5 pg (25.0-34.0); Mean Corpuscular Hgb Conc 32.6 g/dL (32.0-36.0); Mean Corpuscular Volume 96.7 fL (80.0-100.0); Monocytes # (auto) 0.32 K/uL (0.11-0.59); Monocytes % (auto) 7.4 %; Neutrophils # (auto) 1.95 K/uL (1.40-6.50); Neutrophils % (auto) 45.4 %; Platelet Count 301 K/uL (130-400); RDW Coefficient of Variation 12.9 % (11.5-14.5); Red Blood Count 3.36 M/uL (4.20-5.40)
[2023-05-15 07:45] LABS: BUN Creatinine Ratio 22.2 (10-20); Calcium 9.2 mg/dl (8.6-10.3); Creatinine Clr Calc Pharmacy 78.5 ml/min; Est GFR (African American) 103.9 ml/min; Est GFR (Non-African American) 89.6 ml/min; Potassium 3.8 mmol/L (3.5-5.1)
--- NOTE | 2023-05-15 11:51 | Hospitalist Progress Note ---
Date of Service May 15, 2023 Assessment & Plan (1) Osteomyelitis of mandible: Plan: Teeth are grossly infected with significant bone destruction She is stable status post removal of all the teeth on 05/13/2023 Surgical specimen showed necrotic maxilla and mandible, sent to lab for pathology. Awaiting cultures Patient will require dentures some months after surgery Will require about 6 weeks of IV Unasyn per infectious disease Will need PICC line (2) CAP (community acquired pneumonia): Plan: Clinically much improved Blood cultures negative so far On account of agranulocytosis and cytopenia, antibiotic has been changed to IV Unasyn Patient saturating well on room air. (3) Sinusitis: Plan: Not mentioned on CT head but bilateral maxillary sinus mucosal thickening noted on soft tissue neck CT. Possible cause of why her procalcitonin is so elevated without significant CXR findings Continue Unasyn as above (4) SIADH (syndrome of inappropriate ADH production): Plan: Improving Significantly elevated urine sodium and osm consistent with this. No intra cranial findings on CT head to suggest cerebral salt wasting. Improving urine Na and osm suggestive this is acute secondary to infection rather than related to her prior diagnosis of pituitary adenoma Continue to fluid restrict 1L. Continue sodium chloride 1g PO BID. (5) Pituitary adenoma: Plan: Historical diagnosis. No acute symptoms suggested of this unless vasopressin secreting adenoma but suspect this is much less likely than SIADH but will consider if urine NA/osm not resolving (6) Dental caries: Plan: Very loose teeth with periapical lucencies. Appreciate oromaxillofacial surgery input Patient is now status post surgery (7) Acute bronchitis: (8) Acute hyponatremia: (9) AMS (altered mental status): Plan VTE prophylaxis - Lovenox 40 mg subcu daily Diet - regular, minced and moist, fluid restrict 1000 mL Disposition -hopefully discharge when arrangements for long-term antibiotics been made Admission and Anticipated Discharge Date Admission Date: May 08, 2023 Subjective Patient seen and examined. mouth swelling has reduced Review of Systems Review of Systems: All systems reviewed are negative, apart from the ones contained in the history. Physical Exam Physical Exam: The patient is awake, alert and oriented 3, well developed and well nourished, normocephalic and atraumatic, lying in bed and in no acute distress. HEENT--poor dentition Neck--supple. No JVD. No bruits. Thyroid normal, trachea midline, no adenopathy. Heart--normal S1 and S2. No murmurs, rubs or gallops. Lungs--clear bilaterally, no respiratory distress, no accessory muscle use. Abdomen--normal bowel sounds and soft. Mild epigastric and left sided abdominal pain Extremities--no cyanosis or clubbing. No edema. Dermatologic--normal skin turgor, normal color, no abnormal lymph nodes, no rash. Neurologic--cranial nerves II through XII grossly intact. Rheumatologic--normal range of motion. Psychiatric--normal affect. Results & Data Results & Data Vital Signs (Past 12 Hours) Vital Signs Temp Pulse Resp BP Pulse Ox O2 Del Method 05/15/23 07:58 96.3 F L 52 L 16 111/55 L 94 Room Air 05/15/23 07:00 Room Air PG Care Time/CCT Total # of Minutes Spent Total Time Spent with Patient: Total time spent is greater than 50% in coordination of care (as documented) at patient's floor/unit and/or counseling patient: Coding Level of Care Code 55045 SUB INP/OBS CARE 2/35MIN Diagnoses Osteomyelitis of mandible M27.2 CAP (community acquired pneumonia) J18.9 Chronic maxillary sinusitis J32.0 Sinusitis location: maxillary Chronicity: chronic SIADH (syndrome of inappropriate ADH production) E22.2 Pituitary adenoma D35.2 Dental caries K02.9 Acute bronchitis J20.9 Acute hyponatremia E87.1 AMS (altered mental status) R41.82 Altered mental status type: unspecified Time Spent (min) 35 (3) Sinusitis Sinusitis location: maxillary Chronicity: chronic Qualified Code(s): J32.0 - Chronic maxillary sinusitis (9) AMS (altered mental status) Altered mental status type: unspecified Qualified Code(s): R41.82 - Altered mental status, unspecified
--- NOTE | 2023-05-15 12:43 | Oral/Maxillofacial Progress Nt ---
Date of Service May 14, 2023 Assessment & Plan Admission and Anticipated Discharge Date Admission Date: May 08, 2023 Subjective POST OP NOTE at 24 hours The patient did very well post operatively, healing is excellent. Oral care is good, swelling as expected. Tissue tone =healthy normal tissue No sinus or nerve complications noted Excellent ROM Reviewed oral care, diet, home care. Still very sleepy and not out of bed Will plan continued in patient status as per hospitalist team. I will see Charis on May 15 after my afternoon OR case No Bleeding noted Overall: Excellent healing from recent oral surgery Extensive surgery due to the every infected bone and soft tissue Results & Data Vital Signs (Past 12 Hours) Vital Signs Temp Pulse Resp BP Pulse Ox O2 Del Method 05/15/23 07:58 35.7 C L 52 L 16 111/55 L 94 Room Air 05/15/23 07:00 Room Air PG Care Time/CCT Total # of Minutes Spent Total Time Spent with Patient: Total time spent is greater than 50% in coordination of care (as documented) at patient's floor/unit and/or counseling patient: Coding Level of Care Code None
--- NOTE | 2023-05-15 15:31 | Oral/Maxillofacial Progress Nt ---
Date of Service May 15, 2023 Assessment & Plan Admission and Anticipated Discharge Date Admission Date: May 08, 2023 Subjective Post Op infection evaluation 48 hours The infected area is now healing very well. Swelling is going down very well and the oral tissue look good, sutures in place. No drainage is noted. Pathology pending -- clinically looks to be an osteomyelitis but need to wait for pathology for conformation. Infection has responded very well to the antibiotics,extraction, debridement and the I and D. I requested that the patient continue with massage, heat and oral wound care. At this time the area is well healed and responded well to treatment. I understand Charis will be going to Rehab. I asked her daughter to arrange for follow up in 2 weeks may continue with liquid diet --clear or full and advance to soft foods when able pain med as needed tp keep her comfortable From Oral Surgery point of view --OK for transfer Follow up in 2 week--family will arrange Results & Data Vital Signs (Past 12 Hours) Vital Signs Temp Pulse Resp BP Pulse Ox O2 Del Method 05/15/23 07:58 35.7 C L 52 L 16 111/55 L 94 Room Air 05/15/23 07:00 Room Air PG Care Time/CCT Total # of Minutes Spent Total Time Spent with Patient: Total time spent is greater than 50% in coordination of care (as documented) at patient's floor/unit and/or counseling patient: Coding Level of Care Code 83400 SUB INP/OBS CARE 1/25MIN
[2023-05-16 08:14] LABS: Hematocrit (blood only) 30.3 % (37.0-47.0); Hemoglobin 10.2 g/dl (12.0-16.0); Mean Corpuscular Hemoglobin 32.4 pg (25.0-34.0); Mean Corpuscular Hgb Conc 33.7 g/dL (32.0-36.0); Mean Corpuscular Volume 96.2 fL (80.0-100.0); Mean Platelet Volume 10.3 fL (9.4-12.4); Platelet Count 340 K/uL (130-400); RDW Coefficient of Variation 12.8 % (11.5-14.5); RDW Standard Deviation 44.6 fL (36.4-46.3); Red Blood Count 3.15 M/uL (4.20-5.40); White Blood Count 4.34 K/ul (4.8-10.8)
[2023-05-16] MEDS: CHLORHEXIDINE GLUCONATE 0.12% 480 ML MT PRN (08:23)
[2023-05-16 08:50] LABS: Basophils # (auto) 0.05 K/uL (0.00-0.20); Basophils % (auto) 1.2 %; Eosinophils % (auto) 9.2 %; Immature Granulocytes # (auto) 0.02 K/uL (0.01-0.20); Immature Granulocytes % (auto) 0.5 %; Lymphocytes # (auto) 2.22 K/uL (1.20-3.40); Lymphocytes % (auto) 51.2 %; Monocytes % (auto) 6.9 %; Neutrophils # (auto) 1.35 K/uL (1.40-6.50)
[2023-05-16 08:53] LABS: BUN Creatinine Ratio 24.6 (10-20); Calcium 9.3 mg/dl (8.6-10.3); Creatinine Clr Calc Pharmacy 86.8 ml/min; Est GFR (African American) 107.3 ml/min; Est GFR (Non-African American) 92.6 ml/min; Potassium 3.5 mmol/L (3.5-5.1)
--- NOTE | 2023-05-16 13:31 | Hospitalist Progress Note ---
Date of Service May 16, 2023 Assessment & Plan (1) Osteomyelitis of mandible: Plan: Teeth are grossly infected with significant bone destruction She is stable status post removal of all the teeth on 05/13/2023 Surgical specimen showed necrotic maxilla and mandible, sent to lab for pathology. Awaiting cultures Patient will require dentures some months after surgery Will require about 6 weeks of IV Unasyn per infectious disease Will need PICC line Patient has agreed to go to rehab (2) CAP (community acquired pneumonia): Plan: Clinically much improved Blood cultures negative so far On account of agranulocytosis and cytopenia, antibiotic has been changed to IV Unasyn Patient saturating well on room air. (3) Sinusitis: Plan: Not mentioned on CT head but bilateral maxillary sinus mucosal thickening noted on soft tissue neck CT. Possible cause of why her procalcitonin is so elevated without significant CXR findings Continue Unasyn as above (4) SIADH (syndrome of inappropriate ADH production): Plan: Improving Significantly elevated urine sodium and osm consistent with this. No intracranial findings on CT head to suggest cerebral salt wasting. Improving urine Na and osm suggestive this is acute secondary to infection rather than related to her prior diagnosis of pituitary adenoma Continue to fluid restrict 1L. Continue sodium chloride 1g PO BID. (5) Pituitary adenoma: Plan: Historical diagnosis. No acute symptoms suggested of this unless vasopressin secreting adenoma but suspect this is much less likely than SIADH but will consider if urine NA/osm not resolving (6) Dental caries: Plan: Very loose teeth with periapical lucencies. Appreciate oromaxillofacial surgery input Patient is now status post surgery (7) Acute bronchitis: (8) Acute hyponatremia: (9) AMS (altered mental status): Plan VTE prophylaxis - Lovenox 40 mg subcu daily Diet - regular, minced and moist, fluid restrict 1000 mL Disposition -patient has agreed to go to rehab for long-term antibiotics Admission and Anticipated Discharge Date Admission Date: May 08, 2023 Subjective Patient seen and examined, the swelling has gone down considerably, tolerating diet, pain is also much better. Review of Systems Review of Systems: All systems reviewed are negative, apart from the ones contained in the history. Physical Exam Physical Exam: The patient is awake, alert and oriented 3, well developed and well nourished, normocephalic and atraumatic, lying in bed and in no acute distress. HEENT--poor dentition Neck--supple. No JVD. No bruits. Thyroid normal, trachea midline, no adenopathy. Heart--normal S1 and S2. No murmurs, rubs or gallops. Lungs--clear bilaterally, no respiratory distress, no accessory muscle use. Abdomen--normal bowel sounds and soft. Mild epigastric and left sided abdominal pain Extremities--no cyanosis or clubbing. No edema. Dermatologic--normal skin turgor, normal color, no abnormal lymph nodes, no rash. Neurologic--cranial nerves II through XII grossly intact. Rheumatologic--normal range of motion. Psychiatric--normal affect. Results & Data Results & Data Vital Signs (Past 12 Hours) Vital Signs Temp Pulse Resp BP Pulse Ox O2 Del Method 05/16/23 08:00 Room Air 05/16/23 07:30 97.5 F L 51 L 18 120/55 L 98 Room Air PG Care Time/CCT Total # of Minutes Spent Total Time Spent with Patient: Total time spent is greater than 50% in coordination of care (as documented) at patient's floor/unit and/or counseling patient: Coding Level of Care Code 31104 SUB INP/OBS CARE 2/35MIN Diagnoses Osteomyelitis of mandible M27.2 CAP (community acquired pneumonia) J18.9 Chronic maxillary sinusitis J32.0 Sinusitis location: maxillary Chronicity: chronic SIADH (syndrome of inappropriate ADH production) E22.2 Pituitary adenoma D35.2 Dental caries K02.9 Acute bronchitis J20.9 Acute hyponatremia E87.1 AMS (altered mental status) R41.82 Altered mental status type: unspecified Time Spent (min) 35 (3) Sinusitis Sinusitis location: maxillary Chronicity: chronic Qualified Code(s): J32.0 - Chronic maxillary sinusitis (9) AMS (altered mental status) Altered mental status type: unspecified Qualified Code(s): R41.82 - Altered mental status, unspecified
--- NOTE | 2023-05-16 14:27 | Infectious Disease Progress Nt ---
Date of Service May 16, 2023 Assessment & Plan (1) Osteomyelitis of mandible: (2) CAP (community acquired pneumonia): (3) Dental caries: Plan 73yo F with h/o pituitary adenoma who presented on 05/08 with cough, congestion, and weakness x 4 days. Initial labs with WBC 11.81>>4.01, Cr wnl, AST/ALT wnl. Troponin elevated. PCT 7.12. UA with 1-5 WBC. MRSA screen neg. COVID/flu/RSV neg. Group A Strep neg. CXR with peribronchial thickening c/w infectious/inflammatory airways disease or viral pneumonia, no aristides consolidation. CTH negative. She was admitted with c/f CAP and hyponatremia. She started on treatment for CAP. CT neck done which showed marked periapical lucencies associated with multiple upper and lower teeth bl, may represent periapical abscesses; mottled appearance of the bones with some cortical defects of the maxilla, notably of the maxillary premolars and molars; dental caries, no collections. CXR on 05/09 with mild R infrahilar and L retrocardiac opacities may represent atelectasis vs mild pneumonitis. She was seen by OMFS and is now s/p OR on 05/13 for teeth extraction (per note, she had grossly infected bone, soft tissue and teeth, sinus fistula, OM). Regarding osteomyelitis, she will need a prolonged course of antibiotics. Unfortunately, I dont think cultures were sent. She does have surgical path in process but with evidence of bone infection in the OR, I do think shell still warrant 6 weeks of abx. Given extent of infection, I would favor IV antibiotics. No growth in any of the cultures aside from oral faisal so will keep her on Unasyn. # Osteomyelitis of mandible # Dental caries s/p teeth extraction # Pneumonia s/p treatment - continue Unasyn 3g IV q6h - f/u path sent from OR - will plan for 6 weeks of antibiotics with Unasyn as shes improving on current therapy and no other cultures Discharge plan: - continue on Unasyn 3g IV q6h (can also use 12g IV continuous infusion daily for ease of administration) - she will need 6 weeks of antibiotics (start 05/13 date of OR, eot 06/22) - monitor weekly CBC w diff, CMP, ESR, and CRP while on IV antibiotics - she will need close outpatient follow up with either PCP or local ID provider If questions or concerns, contact Infectious Disease Call Center . Oxana Reed MD [facility], Division of Infectious Diseases [employer]: [phone] Admission and Anticipated Discharge Date Admission Date: May 08, 2023 Subjective This patient recommendation is based on a telemedicine consult request which was completed asynchronously through chart review and information provided by the primary physician. The patient was not seen or examined today. The evaluation is consultative in nature and all patient care and treatment decisions can either be accepted or rejected by the patient's primary hospital-based treating physician using their own independent medical judgment for their patient. Time Spent Reviewing Chart: 31+ minutes Awaiting path report. Patient clinically doing well. Results & Data Vital Signs (Past 12 Hours) Vital Signs Temp Pulse Resp BP Pulse Ox O2 Del Method 05/16/23 08:00 Room Air 05/16/23 07:30 36.4 C L 51 L 18 120/55 L 98 Room Air
--- NOTE | 2023-05-17 07:40 | Infectious Disease Progress Nt ---
Date of Service May 17, 2023 Assessment & Plan (1) Osteomyelitis of mandible: (2) CAP (community acquired pneumonia): (3) Dental caries: Plan 73yo F with h/o pituitary adenoma who presented on 05/08 with cough, congestion, and weakness x 4 days. Initial labs with WBC 11.81>>4.01, Cr wnl, AST/ALT wnl. Troponin elevated. PCT 7.12. UA with 1-5 WBC. MRSA screen neg. COVID/flu/RSV neg. Group A Strep neg. CXR with peribronchial thickening c/w infectious/inflammatory airways disease or viral pneumonia, no aristides consolidation. CTH negative. She was admitted with c/f CAP and hyponatremia. She started on treatment for CAP. CT neck done which showed marked periapical lucencies associated with multiple upper and lower teeth bl, may represent periapical abscesses; mottled appearance of the bones with some cortical defects of the maxilla, notably of the maxillary premolars and molars; dental caries, no collections. CXR on 05/09 with mild R infrahilar and L retrocardiac opacities may represent atelectasis vs mild pneumonitis. She was seen by OMFS and is now s/p OR on 05/13 for teeth extraction (per note, she had grossly infected bone, soft tissue and teeth, sinus fistula, OM). Surgical path negative for osteomyelitis, noted severe acute and chronic inflammation, abscess formation. Path report did not see osteomyelitis. However, given that bone appeared grossly infected in the OR, this could be a sampling error and I would still favor her receiving 6 weeks of antibiotics. Will keep her on IV antibiotics at least in the initial few weeks and can later consider changing to oral antibiotics (ie levofloxacin/flagy or high dose augmentin). No cultures available from the OR, no growth in any of the cultures aside from oral faisal so will keep her on Unasyn. Abx: CTX 05/08-05/12 Azithro 05/08-05/13 Unasyn 05/13- # C/f osteomyelitis of mandible # Dental caries s/p teeth extraction 05/13 # Pneumonia s/p treatment - continue Unasyn 3g IV q6h - will plan for 6 weeks of antibiotics with Unasyn as shes improving on current therapy and no other cultures Discharge plan: - continue on Unasyn 3g IV q6h (can also use 12g IV continuous infusion daily for ease of administration) - she will need 6 weeks of antibiotics (start 05/13 date of OR, eot 06/22) - monitor weekly CBC w diff, CMP, ESR, and CRP while on IV antibiotics - she will need close outpatient follow up with either PCP or local ID provider ID will discontinue active follow up at this time. Please do not hesitate to reconsult the Infectious Diseases service as needed. Oxana Reed MD [facility], Division of Infectious Diseases [employer]Connect: [phone] Admission and Anticipated Discharge Date Admission Date: May 08, 2023 Subjective This patient recommendation is based on a telemedicine consult request which was completed asynchronously through chart review and information provided by the primary physician. The patient was not seen or examined today. The evaluation is consultative in nature and all patient care and treatment decisions can either be accepted or rejected by the patient's primary hospital-based treating physician using their own independent medical judgment for their patient. Time Spent Reviewing Chart: 31+ minutes Results & Data Vital Signs (Past 12 Hours) Vital Signs Temp Pulse Resp BP Pulse Ox O2 Del Method 05/16/23 22:02 36.4 C L 51 L 16 138/69 99 Room Air Laboratory Results Labs reviewed 05/08 Throat cx: normal faisal 05/08 MRSA screen: neg 05/08 BCx: ngtd 05/09 Sputum cx: normal faisal
[2023-05-17 09:00] LABS: Hematocrit (blood only) 26.9 % (37.0-47.0); Hemoglobin 9.2 g/dl (12.0-16.0); Mean Corpuscular Hemoglobin 32.3 pg (25.0-34.0); Mean Corpuscular Hgb Conc 34.2 g/dL (32.0-36.0); Mean Corpuscular Volume 94.4 fL (80.0-100.0); Mean Platelet Volume 9.8 fL (9.4-12.4); Platelet Count 316 K/uL (130-400); RDW Coefficient of Variation 12.4 % (11.5-14.5); RDW Standard Deviation 42.9 fL (36.4-46.3); Red Blood Count 2.85 M/uL (4.20-5.40); White Blood Count 3.38 K/ul (4.8-10.8)
[2023-05-17 09:15] LABS: BUN Creatinine Ratio 22.4 (10-20); C Reactive Protein 2.32 mg/dl (0-0.5); Calcium 8.9 mg/dl (8.6-10.3); Creatinine Clr Calc Pharmacy 100.9 ml/min; Est GFR (African American) 112.8 ml/min; Est GFR (Non-African American) 97.3 ml/min; Potassium 3.6 mmol/L (3.5-5.1)
--- NOTE | 2023-05-17 13:58 | Hospitalist Progress Note ---
Date of Service May 17, 2023 Assessment & Plan (1) Osteomyelitis of mandible: Plan: She is stable status post removal of all the teeth on 05/13/2023 Surgical specimen showed necrotic maxilla and mandible, sent to lab for pathology. Awaiting pathology Cultures have been negative so far Patient will require dentures some months after surgery Will require about 6 weeks of IV Unasyn 3 g daily per infectious disease Patient already got her PICC line Patient has agreed to go to rehab for IV antibiotics (2) CAP (community acquired pneumonia): Plan: Clinically much improved Blood cultures negative so far On account of agranulocytosis and cytopenia, antibiotic has been changed to IV Unasyn Patient saturating well on room air. (3) Sinusitis: Plan: Not mentioned on CT head but bilateral maxillary sinus mucosal thickening noted on soft tissue neck CT. Possible cause of why her procalcitonin is so elevated without significant CXR findings Continue Unasyn as above (4) SIADH (syndrome of inappropriate ADH production): Plan: Improving Significantly elevated urine sodium and osm consistent with this. No intracranial findings on CT head to suggest cerebral salt wasting. Improving urine Na and osm suggestive this is acute secondary to infection rather than related to her prior diagnosis of pituitary adenoma Continue to fluid restrict 1L. Continue sodium chloride 1g PO BID. (5) Pituitary adenoma: Plan: Historical diagnosis. No acute symptoms suggested of this unless vasopressin secreting adenoma but suspect this is much less likely than SIADH but will consider if urine NA/osm not resolving (6) Dental caries: Plan: Very loose teeth with periapical lucencies. Appreciate oromaxillofacial surgery input Patient is now status post surgery (7) Acute bronchitis: (8) Acute hyponatremia: (9) AMS (altered mental status): Plan VTE prophylaxis - Lovenox 40 mg subcu daily Diet - regular, minced and moist, fluid restrict 1000 mL Disposition -patient has agreed to go to rehab for long-term antibiotics, awaiting authorization Admission and Anticipated Discharge Date Admission Date: May 08, 2023 Subjective Patient seen and examined, daughter by the bedside, doing well postsurgery Review of Systems Review of Systems: All systems reviewed are negative, apart from the ones contained in the history. Physical Exam Physical Exam: The patient is awake, alert and oriented 3, well developed and well nourished, normocephalic and atraumatic, lying in bed and in no acute distress. HEENT--poor dentition Neck--supple. No JVD. No bruits. Thyroid normal, trachea midline, no adenopathy. Heart--normal S1 and S2. No murmurs, rubs or gallops. Lungs--clear bilaterally, no respiratory distress, no accessory muscle use. Abdomen--normal bowel sounds and soft. Mild epigastric and left sided abdominal pain Extremities--no cyanosis or clubbing. No edema. Dermatologic--normal skin turgor, normal color, no abnormal lymph nodes, no rash. Neurologic--cranial nerves II through XII grossly intact. Rheumatologic--normal range of motion. Psychiatric--normal affect. Results & Data Results & Data Vital Signs (Past 12 Hours) Vital Signs Temp Pulse Pulse Resp BP Pulse Ox O2 Del Method 05/17/23 11:36 97.5 F L 70 15 131/69 97 Room Air 05/17/23 09:37 Room Air 05/17/23 07:54 97.5 F L 62 17 122/67 95 Room Air PG Care Time/CCT Total # of Minutes Spent Total Time Spent with Patient: Total time spent is greater than 50% in coordination of care (as documented) at patient's floor/unit and/or counseling patient: Coding Level of Care Code 85389 SUB INP/OBS CARE 2/35MIN Diagnoses Osteomyelitis of mandible M27.2 CAP (community acquired pneumonia) J18.9 Chronic maxillary sinusitis J32.0 Sinusitis location: maxillary Chronicity: chronic SIADH (syndrome of inappropriate ADH production) E22.2 Pituitary adenoma D35.2 Dental caries K02.9 Acute bronchitis J20.9 Acute hyponatremia E87.1 AMS (altered mental status) R41.82 Altered mental status type: unspecified Time Spent (min) 35 (3) Sinusitis Sinusitis location: maxillary Chronicity: chronic Qualified Code(s): J32.0 - Chronic maxillary sinusitis (9) AMS (altered mental status) Altered mental status type: unspecified Qualified Code(s): R41.82 - Altered mental status, unspecified
--- NOTE | 2023-05-18 11:31 | Hospitalist Progress Note ---
Date of Service May 18, 2023 Assessment & Plan (1) Osteomyelitis of mandible: Plan: She is stable status post removal of all the teeth on 05/13/2023 Surgical specimen showed necrotic maxilla and mandible, sent to lab for pathology. Awaiting pathology Cultures have been negative so far Patient will require dentures some months after surgery Will require about 6 weeks of IV Unasyn 3 g Q6h (per infectious disease can get 12 g and continuous infusion per day) Patient already got her PICC line Patient has agreed to go to rehab for IV antibiotics (2) CAP (community acquired pneumonia): Plan: Clinically much improved Blood cultures negative so far On account of agranulocytosis and cytopenia, antibiotic has been changed to IV Unasyn Patient saturating well on room air. (3) Sinusitis: Plan: Not mentioned on CT head but bilateral maxillary sinus mucosal thickening noted on soft tissue neck CT. Possible cause of why her procalcitonin is so elevated without significant CXR findings Continue Unasyn as above (4) SIADH (syndrome of inappropriate ADH production): Plan: Improving Significantly elevated urine sodium and osm consistent with this. No intracranial findings on CT head to suggest cerebral salt wasting. Improving urine Na and osm suggestive this is acute secondary to infection rather than related to her prior diagnosis of pituitary adenoma Continue to fluid restrict 1L. Continue sodium chloride 1g PO BID. (5) Pituitary adenoma: Plan: Historical diagnosis. No acute symptoms suggested of this unless vasopressin secreting adenoma but suspect this is much less likely than SIADH but will consider if urine NA/osm not resolving (6) Dental caries: Plan: Very loose teeth with periapical lucencies. Appreciate oromaxillofacial surgery input Patient is now status post surgery (7) Acute bronchitis: (8) Acute hyponatremia: (9) AMS (altered mental status): Plan VTE prophylaxis - Lovenox 40 mg subcu daily Diet - regular, minced and moist, fluid restrict 1000 mL Disposition -patient has agreed to go to rehab for long-term antibiotics, awaiting authorization Admission and Anticipated Discharge Date Admission Date: May 08, 2023 Subjective Patient seen and examined, doing well postsurgery, tolerating diet, mild swelling is much improved Review of Systems Review of Systems: All systems reviewed are negative, apart from the ones contained in the history. Physical Exam Physical Exam: The patient is awake, alert and oriented 3, well developed and well nourished, normocephalic and atraumatic, lying in bed and in no acute distress. HEENT--poor dentition Neck--supple. No JVD. No bruits. Thyroid normal, trachea midline, no adenopathy. Heart--normal S1 and S2. No murmurs, rubs or gallops. Lungs--clear bilaterally, no respiratory distress, no accessory muscle use. Abdomen--normal bowel sounds and soft. Mild epigastric and left sided abdominal pain Extremities--no cyanosis or clubbing. No edema. Dermatologic--normal skin turgor, normal color, no abnormal lymph nodes, no rash. Neurologic--cranial nerves II through XII grossly intact. Rheumatologic--normal range of motion. Psychiatric--normal affect. Results & Data Results & Data Vital Signs (Past 12 Hours) Vital Signs Temp Pulse Resp BP Pulse Ox O2 Del Method 05/18/23 08:14 97.5 F L 53 L 16 130/62 99 Room Air PG Care Time/CCT Total # of Minutes Spent Total Time Spent with Patient: Total time spent is greater than 50% in coordination of care (as documented) at patient's floor/unit and/or counseling patient: Coding Level of Care Code 73991 SUB INP/OBS CARE 2/35MIN Diagnoses Osteomyelitis of mandible M27.2 CAP (community acquired pneumonia) J18.9 Chronic maxillary sinusitis J32.0 Sinusitis location: maxillary Chronicity: chronic SIADH (syndrome of inappropriate ADH production) E22.2 Pituitary adenoma D35.2 Dental caries K02.9 Acute bronchitis J20.9 Acute hyponatremia E87.1 AMS (altered mental status) R41.82 Altered mental status type: unspecified Time Spent (min) 35 (3) Sinusitis Sinusitis location: maxillary Chronicity: chronic Qualified Code(s): J32.0 - Chronic maxillary sinusitis (9) AMS (altered mental status) Altered mental status type: unspecified Qualified Code(s): R41.82 - Altered mental status, unspecified
[2023-05-19 07:06] LABS: Hematocrit (blood only) 28.1 % (37.0-47.0); Hemoglobin 9.5 g/dl (12.0-16.0); Mean Corpuscular Hemoglobin 31.7 pg (25.0-34.0); Mean Corpuscular Hgb Conc 33.8 g/dL (32.0-36.0); Mean Corpuscular Volume 93.7 fL (80.0-100.0); Mean Platelet Volume 9.8 fL (9.4-12.4); Platelet Count 321 K/uL (130-400); RDW Coefficient of Variation 11.9 % (11.5-14.5); RDW Standard Deviation 40.1 fL (36.4-46.3); White Blood Count 3.59 K/ul (4.8-10.8)
--- NOTE | 2023-05-19 10:13 | Hospitalist Progress Note ---
Date of Service May 19, 2023 Assessment & Plan (1) Osteomyelitis of mandible: Plan: She is stable status post removal of all her teeth on 05/13/2023 Surgical specimen showed necrotic maxilla and mandible, sent to lab for pathology. Awaiting pathology Cultures have been negative so far Patient will require dentures some months after surgery Will require about 6 weeks of IV Unasyn 3 g Q6h (per infectious disease can get 12 g and continuous infusion per day) Patient already got her PICC line Patient has agreed to go to rehab for IV antibiotics (2) CAP (community acquired pneumonia): Plan: Clinically much improved Blood cultures negative so far Patient saturating well on room air. In any case, she is on Unasyn (3) Sinusitis: Plan: Not mentioned on CT head but bilateral maxillary sinus mucosal thickening noted on soft tissue neck CT. Possible cause of why her procalcitonin is so elevated without significant CXR findings Continue Unasyn as above (4) Pituitary adenoma: Plan: Historical diagnosis. No acute symptoms suggested of this unless vasopressin secreting adenoma but suspect this is much less likely than SIADH but will consider if urine NA/osm not resolving (5) Dental caries: Plan: Very loose teeth with periapical lucencies. Appreciate oromaxillofacial surgery input Patient is now status post surgery (6) Acute bronchitis: (7) SIADH (syndrome of inappropriate ADH production): (8) Acute hyponatremia: (9) AMS (altered mental status): Plan VTE prophylaxis - Lovenox 40 mg subcu daily Diet - regular, minced and moist, fluid restrict 1000 mL Disposition -patient has agreed to go to rehab for long-term antibiotics, awaiting authorization Admission and Anticipated Discharge Date Admission Date: May 08, 2023 Subjective Patient seen and examined, doing well postsurgery, ambulating the hallway, denies any pains. Tolerating diet Review of Systems Review of Systems: All systems reviewed are negative, apart from the ones contained in the history. Physical Exam Physical Exam: The patient is awake, alert and oriented 3, well developed and well nourished, normocephalic and atraumatic, lying in bed and in no acute distress. HEENT--poor dentition Neck--supple. No JVD. No bruits. Thyroid normal, trachea midline, no adenopathy. Heart--normal S1 and S2. No murmurs, rubs or gallops. Lungs--clear bilaterally, no respiratory distress, no accessory muscle use. Abdomen--normal bowel sounds and soft. Mild epigastric and left sided abdominal pain Extremities--no cyanosis or clubbing. No edema. Dermatologic--normal skin turgor, normal color, no abnormal lymph nodes, no rash. Neurologic--cranial nerves II through XII grossly intact. Rheumatologic--normal range of motion. Psychiatric--normal affect. Results & Data Results & Data Vital Signs (Past 12 Hours) Vital Signs Temp Pulse Resp BP Pulse Ox O2 Del Method 05/19/23 06:56 97.3 F L 47 L 16 133/63 99 Room Air PG Care Time/CCT Total # of Minutes Spent Total Time Spent with Patient: Total time spent is greater than 50% in coordination of care (as documented) at patient's floor/unit and/or counseling patient: Coding Level of Care Code 57850 SUB INP/OBS CARE 2/35MIN Diagnoses Osteomyelitis of mandible M27.2 CAP (community acquired pneumonia) J18.9 Chronic maxillary sinusitis J32.0 Sinusitis location: maxillary Chronicity: chronic Pituitary adenoma D35.2 Dental caries K02.9 Acute bronchitis J20.9 SIADH (syndrome of inappropriate ADH production) E22.2 Acute hyponatremia E87.1 AMS (altered mental status) R41.82 Altered mental status type: unspecified Time Spent (min) 35 (3) Sinusitis Sinusitis location: maxillary Chronicity: chronic Qualified Code(s): J32.0 - Chronic maxillary sinusitis (9) AMS (altered mental status) Altered mental status type: unspecified Qualified Code(s): R41.82 - Altered mental status, unspecified
--- NOTE | 2023-05-19 11:19 | Operative Report ---
PG Post Operative Report Pre & Post Diagnosis Operation Date: 05/13/23 09:20 Patient: KIKI DELCID Admit Date: 05/08/23 MR#: [id number] Att Phy: Jayce Curiel MD Acct ID: [id number] Melida Phy: ElSupriya DO Date: 1950 Fam Phy: Age: 73 Location: 3N Sex: F Room/Bed: [facility] cc: ~ *NOTICE TO RECEIVING GREEN PARTY/AGENCY This information is strictly Confidential and protected under [place] law. [place] law prohibits you from making any further disclosure of this information unless further disclosure is expressly permitted by the written consent of the person to whom it pertains or is authorized by law. A general authorization for the release of medical or other information is not sufficient for this purpose. Hospital accepts no responsibility if the information is made available to any other person, INCLUDING THE PATIENT. Date of Service May 13, 2023 Debridement of all the infected soft tissue, necrotic bone, granulation tissue and extremely loose teeth. Extraction of about loose 10-15 teeth Debridement of hyperplastic tissue upper and lower jaw Excision of infected and necrotic bone upper and lower jaws Excision of large lesion lower right jaw I identified the patient and participated in the time-out.: Yes Procedure Operation Date: 05/13/23 09:20 Debridement of all the infected soft tissue, necrotic bone, granulation tissue and extremely loose teeth. Extraction of about loose 10-15 teeth Debridement of hyperplastic tissue upper and lower jaw Excision of infected and necrotic bone upper and lower jaws Excision of large lesion lower right jaw Surgeon Michele Burt, DMD Administration Intern none Estimated Blood Loss 15 Findings Consistent with Post-Op Diagnosis Specimens infected bone infected soft tissue lesion of lower right jaw lesions upper right jaw Drains none Anesthesia Type General Complications LARGE OPENING INTO RIGHT MAXILLARY SINUS A RESULT OF THE REMOVAL OF THE LARGE INFECTED NECROTIC BONE AND SOFT TISSUE Disposition Accompanied Patient To Recovery: Yes Indications grossly infected teeth, swelling of the gums, facial infection, risk of aspiration due to loose teeth Description of Procedure Pre-op= Extraction of about loose 25 teeth Debridement of hyperplastic tissue upper and lower jaw Excision of infected and necrotic bone upper and lower jaws Excision of large lesion lower right jaw EXCISION OF GUM LESION-DENTOALVEOLAR - 16162 ([id number]) upper EXCISION OF GUM LESION-DENTOALVEOLAR - 26747 ([id number]) lower EXTRACTIONS OF 13 SIMPLE EXTRACTION ----D7140 X 13 ( 4,5,6,11,12,13,14,19,20,21,22,27,28) EXCISION OF NECROTIC BONE LOWER RIGHT-- MANDIBLE EXCISION OF NECROTIC BONE UPPER MAXILLA CLOSURE OF RIGHT SINUS OPENING 69180 BUCCAL FAT GRAFT CLOSURE 25915 Once cleared for surgery general anesthesia was achieved, the eyes were protected by the anesthesia dept criteria.. A time out was take for patient ID, antibiotics, equipment and position verification once all agreed the procedure began. Great care was taken by anesthesia to avoid any displacement of the loose teeth during intubation. Local anesthesia was given into each area using Marcaine with a vasoconstrictor ( 1.8 ml per site). Prior to placing the throat I noted a tooth was displaced into the nasopharyngeal space with I was able to remove. I inspected the other teeth all all other teeth were accounted for. A throat pack was placed after the oral cavity was irrigated with saline. Once a surgical level of anesthesia was obtained and the local anesthesia was given time for the blocks the surgery was started. I turned my attention to the upper wisdom teeth first. Upper teeth D7140 x 7 for teeth 4,5,6,11,12,13,14 ( the fee for D7140 is $ 55 per tooth) The follow teeth were present #1,3,4,5,6,7,8,9,10,11,12,13,14,15,16 The majority of the teeth were so loose that only the following were actually extracted while the other were removed w/o any effort and therefore will not be charged. The follow 7 teeth were extracted with a dental forceps and will be charged for simple extraction Simple extractions 4,5,6,11,12,13,14 The remaining upper teeth were so loose they were picked out w/o any effort -no charge for the following 1,3,5,6,7,8,9,10,15,16 Lower teeth D7140 x 6 for teeth #19,20,21,22,27,28 ( the fee for D7140 is $ 55 per tooth) The follow teeth were present #19,20,21,22,23,24,26,27,28,32 The majority of the teeth were so loose that only the following were actually extracted while the other were removed w/o any effort and therefore will not be charged. The follow 6 teeth were extracted with a dental forceps and will be charged for simple extraction Simple extractions #19,20,21,22,27,28 The remaining lower teeth were so loose they were picked out w/o any effort -no charge for the following #23,24,26,28,32 Excision of infected hyperplastic soft tissue lower jaw 03684 ([id number]) Debridement of osteomyelitis sites of the lower posterior jaw 08168 MANDIBLE The full thick Muco-periosteal flap was made on the right to left external oblique ridge to avoid the lingual nerve. This long flap was reflected to allow debulking of the hyperplastic tissues of the lower jaw. This was a case of extreme gingival hyperplastic tissue . Once the tissue was reduced and reflected the bone was vitalized. The drill with a large round bur was used to remove the irregular necrotic bone and allow debridement of the osteomyelitis necrotic bone especially on the lower right side where a very large bone defect was noted. The necrotic bone and soft tissue was send for pathology. The bone was trimmed and all clinical evidence of the infected hard and soft tissue was smoothed and the flap was closed with a 2-0 chromic sutures. A more anatomic anatomy resulted. Excision of infected hyperplastic soft tissue upper jaw 61018 ([id number]) UPPER Debridement of osteomyelitis sites of the upper right and left posterior jaw 73893 MAXILLA Closure of right sinus opening with buccal fat closure 13043 AND 46413 The full thick Muco-periosteal flap was made on the right to left tuberosity area. This long flap was reflected to allow debulking of the hyperplastic tissues of the upper jaw. This was a case of extreme gingival hyperplastic tissue . Once the tissue was reduced and reflected the bone was vitalized. The drill with a large round bur was used to remove the irregular necrotic bone and allow debridement of the osteomyelitis necrotic bone especially on the upper posterior left and right sides. The sinus was involved on the right side which necessitated a buccal fat flap closure of the sinus opening and help reconstruct the very large bone defect of the upper right. The necrotic bone and soft tissue was send for pathology. The bone was trimmed and all clinical evidence of the infected hard and soft tissue was smoothed and the flap was closed with a 2-0 chromic sutures. The fat flap was advanced and sutured over the sinus opening --a good water tight closure was obtained. A more anatomic anatomy resulted. I inspected the sites to insure all bleeding was controlled and all sutures were in place I removed the throat pack and suctioned the throat. Bilateral gauze pressure dressings were placed. All instrument and sponge count was correct. The patient was allowed to awake from the anesthesia. Once full awake the anesthesia tube was removed and the patient was taken to the recovery room with all vital sign stable. The patient tolerated the surgery very well. I will follow the patient in the hospital and in my office, Rx and instructions will be given upon discharge. I attest to the content of the Intraoperative Record and any orders documented therein. Any exceptions are noted below.
[2023-05-20] MEDS: ONDANSETRON INJ 2 MG/ML 2 ML VIAL IV PRN (03:35)
[2023-05-20 07:17] LABS: Hematocrit (blood only) 29.1 % (37.0-47.0); Hemoglobin 9.8 g/dl (12.0-16.0); Mean Corpuscular Hemoglobin 31.9 pg (25.0-34.0); Mean Corpuscular Hgb Conc 33.7 g/dL (32.0-36.0); Mean Corpuscular Volume 94.8 fL (80.0-100.0); Platelet Count 328 K/uL (130-400); RDW Standard Deviation 41.1 fL (36.4-46.3); Red Blood Count 3.07 M/uL (4.20-5.40); White Blood Count 3.62 K/ul (4.8-10.8)
[2023-05-20 07:42] LABS: Creatinine Clr Calc Pharmacy 83.8 ml/min; Est GFR (African American) 106.1 ml/min; Est GFR (Non-African American) 91.6 ml/min
--- NOTE | 2023-05-20 11:20 | Discharge Summary ---
Date of Service May 20, 2023 Admission HPI Per Admitting Provider 73 year old female with PMH of pituitary adenoma here due to cough, congestion and weakness. Symptoms started on Saturday with cough and runny nose. She was taking Mucinex, was getting better but cough return yesterday. Daughter refers sudden disorientation and generalized weakness this afternoon, that make the patient unable to stand up. Additionally patient refers chest pain, worse with cough. Had poor PO intake since 2 days ago. No diarrhea, but 2 soft BMs today. No problems findings words.At evaluation she was oriented x3. Denied any nausea or vomiting. Denied any SOB, no dysuria, no urgency, no frequency. No sick contacts At arrival patient found with hypovolemia. No fever. [address] head: negative for any acute pathology or bleeding. CXR: Peribronchial thickening. WBC: Mild leukocytosis (11,000). Hyponatremia of 124. Serum osmolality: 259. Troponin: 26: EKG: Normal sinus rhythm, incomplete right bundle branch block. Principal Diagnosis Osteomyelitis of mandible, status post debridement of all infected soft tissue, extraction of 10-15 teeth Community-acquired pneumonia Discharge Exam General: Awake, conversant Heart: S1, S2/regular rate and rhythm, no murmur rubs or gallops Lungs: Clear to auscultation bilaterally. Normal effort Abdomen: Soft/nontender/nondistended. No hepatosplenomegaly Extremities: No clubbing/cyanosis. No edema Behavior: Appropriate, cooperative Discharge Data Allergies Allergy/AdvReac Type Severity Reaction Status Date / Time No Known Allergies Allergy Verified 05/08/23 17:26 Consultations 05/08/23 17:16 ED Decision to Admit Stat 05/09/23 15:24 Consult Oromaxillofacial Surgery Routine 05/10/23 18:11 Consult Infectious Diseases Routine Procedures Performed Operation Date: 05/13/23 09:20 <No data on this case meets the specified criteria> Ordered Studies 05/08/23 16:51 CT head/brain wo con Stat 05/08/23 20:03 CT soft tissue neck w con Stat Hospital Course (1) Osteomyelitis of mandible: She is stable status post removal of all her teeth on 05/13/2023 Surgical specimen showed necrotic maxilla and mandible, sent to lab for pathology. Awaiting pathology Cultures have been negative so far Patient will require dentures some months after surgery Will require about 6 weeks of IV Unasyn 3 g Q6h (per infectious disease can get 12 g and continuous infusion per day) Patient already got her PICC line Patient has agreed to go to rehab for IV antibiotics (2) CAP (community acquired pneumonia): Clinically much improved Blood cultures negative so far Patient saturating well on room air. In any case, she is on Unasyn (3) Sinusitis: Not mentioned on CT head but bilateral maxillary sinus mucosal thickening noted on soft tissue neck CT. Possible cause of why her procalcitonin is so elevated without significant CXR findings Continue Unasyn as above (4) Pituitary adenoma: Historical diagnosis. No acute symptoms suggested of this unless vasopressin secreting adenoma but suspect this is much less likely than SIADH but will consider if urine NA/osm not resolving (5) Dental caries: Very loose teeth with periapical lucencies. Appreciate oromaxillofacial surgery input. Plan to follow-up with them outpatient. Patient is now status post surgery (6) Acute bronchitis: (7) SIADH (syndrome of inappropriate ADH production): (8) Acute hyponatremia: (9) AMS (altered mental status): Plan Diet - regular, minced and moist Disposition -discharged to rehab for long-term antibiotics Total Time Total Time Spent Total Time Spent (In Minutes): 35 Discharge Plan Discharge Items Patient Disposition: Transfer Correction Fac Reason For Visit: HYPONATREMIA, CAP Discharge Diagnosis: Osteomyelitis of mandible, status post debridement of all infected soft tissue, extraction of 10-15 teeth Community-acquired pneumonia Activity: As commented below Activity Comment: Per PT/OT recommendation Non-emergency contact: Primary Care Provider Call non-emergency contact if: you have any medication questions and your symptoms worsen Follow-up/Referrals: Supriya Gallegos DO [Primary Care Provider] - Michele Burt DMD [Physician] - Diet: Heart Healthy Addtl Attending Provider Instructions: ID recommendations - continue on Unasyn 3g IV q6h (can also use 12g IV continuous infusion daily for ease of administration) - she will need 6 weeks of antibiotics (start 05/13 date of OR, eot 06/22) - monitor weekly CBC w diff, CMP, ESR, and CRP while on IV antibiotics - will need close outpatient follow up with either PCP or local ID provider Follow-up pathology sent from [place] ADDITIONAL ACTIVITY RECOMMENDATIONS: * It is very important to keep your mouth clean to prevent infection. * Starting tonight rinse with the Peridex as directed then 2 x a day * it is very important to keep well hydrated, this prevents fever and possible dry socket pain SPECIAL CARE INSTRUCTIONS: *It is not uncommon that between day 2-4 that your swelling will be at its worst this is very normal, do not be alarmed. * Once home or in Rehab apply heat (hot water bottle or heating pad) for the next two days, as often as possible. * Tomorrow start rinsing your mouth with 1/2 teaspoon salt in 8 ounces warm water. This rinse should be used every 4-6 hours. * You may experience slight nausea. To prevent this, never take your medication on an empty stomach. If nauseated, take small sips of willy jacinta until you feel better; then you may start on applesauce and toast. * Some swelling is common. It should gradually decrease within 4-5 days. * A certain amount of bleeding is to be expected. It is often possible to control mild oozing by placing folded gauze over the area and biting down for 30 minutes. If you are unable to control excessive bleeding, call Dr Burt at [phone] * You may experience some discomfort for a few days. If pain or swelling increases, Call Dr Burt * Return to the office for a follow up check up on: 2 weeks * [facility] phone # [phone] Pending Studies at Discharge: Yes Studies:: Surgical pathology Stand-Alone Forms: My [facility] Skilled Items Patient informed of condition?: Yes DNR: No Discharge Level of Care: Skilled Communicable Disease: No Discharge Prognosis: Stable Lines: PICC Urinary Catheter: No Medications and DC Order Prescriptions: New ampicillin-sulbactam [Unasyn] 3 gram recon soln 3 g IV Q6H Qty: 10 0RF Discharge Orders: Discharge Order (Routine); Ordered 05/20/23 Ordered By: Liliam Barrios Admission Data Admit Date/Time: 05/08/23 18:53 Attending Provider: Liliam Barrios Admit Provider: Denisse Cain Primary Care Provider: Supriya Gallegos Other Providers: [place]; [facility],; Salvador Coates at [place]; Hayden Mendes; Michele Burt; Zelda Hernandez; Ester Duggan; Anais Dickinson; Katarina Hill; Oxana Reed; Lesley Wagner; Mita Quiroga; Ambika Mcgowan Other Interventions: Discharge Summary Assessment (RN) Last Done: 05/20/23 10:36 Coding Level of Care Code 23455 INP/OBS DISCH >30 MIN Diagnoses Osteomyelitis of mandible M27.2 CAP (community acquired pneumonia) J18.9 Chronic maxillary sinusitis J32.0 Chronicity: chronic Sinusitis location: maxillary Pituitary adenoma D35.2 Dental caries K02.9 Acute bronchitis J20.9 SIADH (syndrome of inappropriate ADH production) E22.2 Acute hyponatremia E87.1 AMS (altered mental status) R41.82 Altered mental status type: unspecified
[2023-05-20] MEDS ORDERED: AMPICILLIN SOD/SULBACTAM SOD 3 GM VIAL IV STA (11:32)
== END 2023-05-20 13:23 | DRG 982 ==
LOC: ED 15:00 → 2N 18:53 → SUATTDRO 18:53 → 2N 22:39 → 3N 05-11 03:35

== ENCOUNTER 2024-03-24 08:14 | Inpatient (IN) ==
--- NOTE | 2024-03-24 10:24 | XRay Report ---
XR chest 1V portable CLINICAL HISTORY: weakness TECHNIQUE: Single frontal radiograph of the chest was obtained. Comparison: Comparison is made to chest radiograph 05/09/2023 FINDINGS: No lines and tubes are seen. The cardiomediastinal silhouette is normal. Right lower lung airspace op acity is seen. No evidence of pleural effusion or pneumothorax. IMPRESSION: Right lower lung airspace opacity. This may represent atelectasis, pneumonia, and/or aspiration. ACT 112: Negative or not required by law. Electronically signed by: Dario Billings M.D. 03/24/2024 10:23 AM
[2024-03-24 10:54] LABS: Basophils # (auto) 0.01 K/uL (0.00-0.20); Basophils % (auto) 0.4 %; Hematocrit (blood only) 41.7 % (37.0-47.0); Hemoglobin 14.7 g/dl (12.0-16.0); Immature Granulocytes # (auto) 0.01 K/uL (0.01-0.20); Immature Granulocytes % (auto) 0.4 %; Lymphocytes # (auto) 0.67 K/uL (1.20-3.40); Lymphocytes % (auto) 28.9 %; Mean Corpuscular Hemoglobin 32.2 pg (25.0-34.0); Mean Corpuscular Hgb Conc 35.3 g/dL (32.0-36.0); Mean Corpuscular Volume 91.2 fL (80.0-100.0); Mean Platelet Volume 11.4 fL (9.4-12.4); Monocytes # (auto) 0.32 K/uL (0.11-0.59); Monocytes % (auto) 13.8 %; Neutrophils # (auto) 1.31 K/uL (1.40-6.50); Neutrophils % (auto) 56.5 %; Platelet Count 109 K/uL (130-400); RDW Standard Deviation 40.2 fL (36.4-46.3); Red Blood Count 4.57 M/uL (4.20-5.40); White Blood Count 2.32 K/ul (4.8-10.8)
[2024-03-24 11:04] LABS: Albumin Globulin Ratio 1.3 (0.9-2); Albumin Level 4.5 gm/dl (3.4-5.0); BUN Creatinine Ratio 14.8 (10-20); Bilirubin,Total 0.6 mg/dl (0.2-1.0); Calcium 9.4 mg/dl (8.6-10.3); Creatinine Clr Calc Pharmacy 56.6 ml/min; Globulin 3.4 gm/dl (2.5-4.0); Magnesium 1.7 mg/dl (1.7-2.4); Potassium 4.2 mmol/L (3.5-5.1); Total Protein 7.9 gm/dl (6.0-8.3)
[2024-03-24 11:09] LABS: Troponin I High Sensitivity 25.4 pg/ml (0-14)
--- NOTE | 2024-03-24 11:09 | Emergency Department Note ---
Impression & Plan Generalized weakness, Non-ST elevation WY (NSTEMI), Elevated CK, COVID-19, Thrombocytopenia ED Provider Note HISTORY OF PRESENT ILLNESS: Patient is a 73-year-old female presenting with generalized weakness and a fever. Family member provides most of history. Reports that yesterday the patient started having a productive cough of green and yellow mucus. Reports that she seemed to have a progressive decline in her strength throughout the evening. Reports that at 3 AM the patient was unable to get up out of bed by herself. Patient is normally ambulatory without any assistive devices. Family member reports that this morning the patient was unable to get up out of bed and said that her legs were too weak. Patient denies any chest pain or shortness of breath. Reports that her bilateral thighs feel sore and achy. Denies any recent sick contact exposures. She is not on any anticoagulation or antiplatelet therapy. Patient denies any abdominal pain, nausea or vomiting. Per report, EMS states the patient had a fever and gave her 1000 mg of IV Tylenol. ROS: as above PHYSICAL EXAM: Constitutional: Patient appears in no acute distress. HENT: Head: Normocephalic and atraumatic. Eyes: EOMI, PERRL Mouth/Throat: Mucous membranes moist. Neck: Trachea midline. Neck supple. Cardiovascular: Bradycardic with regular rhythm. No murmurs, rubs or gallops. Intact distal pulses. Pulmonary/Chest: No respiratory distress. Breath sounds clear and equal bilaterally. No wheezes or rales. Abdominal: Abdomen soft, no tenderness, rebound or guarding. Musculoskeletal: No edema, tenderness or deformity noted. Skin: Warm and dry. No rash, erythema, pallor or cyanosis Neurological: Alert and keenly responsive. CN II-XII grossly intact, moving all extremities equally and fully. MDM: - Vitals signs showed bradycardia. - History obtained via patient and patient's family. History as above. - Chronic conditions affecting care: SIADH; pituitary adenoma - Differential diagnoses include, but are not limited to: CVA; viral syndrome; pneumonia; UTI; ACS; dysrhythmia; electrolyte abnormality - Order placed for continuous cardiac monitoring. At this time, monitor showed rate of 57 bpm with normal sinus rhythm, per my interpretation. - External medical records reviewed. [facility] office visit note dated 10/31/2023 was reviewed. Patient was seen in clinic due to poor oral intake and urinary frequency. - EKG interpreted by myself showed normal sinus rhythm. Rate bradycardic at 51 bpm. QT 462. No acute ischemic changes, but noted to have ST depressions in leads V3 4 through V6. - Laboratory workup interpreted by myself showed leukopenia (WBC 2.32); thrombocytopenia (plt 109); normal INR; hyponatremia (Na 131); hypoglycemia (glucose 59); elevated AST (82); normal total bilirubin; elevated CK (1229); elevated troponin (25.4); normal TSH - Patient given amp of D50 for hypoglycemia - Viral respiratory panel positive for COVID-19 - UA ordered but not yet obtained. - CXR negative for pneumonia, per my interpretation. However, radiology notes concern for right lower lobe airspace opacity which could be pneumonia versus atelectasis versus aspiration. - CT head wo contrast negative for acute pathology. - Patient given 500 cc NS for hydration. Given 25 mcg IV fentanyl for bilateral leg pain, as she was already given Tylenol earlier and she is thrombocytopenic so Motrin/Toradol contraindicated. - Discussion was had with welfare case worker about patient's case and need for admission - Hospitalist consulted for admission - [facility] 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 SIADH (syndrome of inappropriate ADH production) Sinusitis Radiolucent area in mandible Swollen gums Disease of gingiva due to infection Loose, teeth Dental caries Acute bronchitis CAP (community acquired pneumonia) Viral URI (Acute) AMS (altered mental status) (Acute) Acute hyponatremia (Acute) COVID-19 (Acute) Hematuria Urinary frequency Anxiety (Chronic) Surgical History History of brain surgery Family History Mother Diabetes Sister Diabetes Brother Hypertension Other Environmental allergies No family history of adverse response to anesthesia No family history of bleeding disorder Denies family history of Ovarian cancer Prostate cancer Myocardial infarction Breast cancer Colorectal cancer Social History Smoking Status: Never smoker Second Hand Exposure: No; Do You Dip or Chew Tobacco: No; Hx Alcohol Use: No Hx Substance Use: No Preferred Language: Sammarinese Communication Ability: Effective Visual Impairment: No Limitations Hearing Ability: Normal Conditioning 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 Beliefs That Will Affect Care: None marital status: Single Current Living Situation: Alone and Family Current Living Situation Comment: lives with daughter, but alone most days current occupational status: retired How many Children do You have: 2 How many Children do You have Comment: 1 boy 1 girl Feels Safe at Home: Yes Childhood Exposure to Second-Hand Smoke: No Diet: regular during the past year weight has: remained stable Dental Care, Regularly: No Physical Activity Frequency: Does not Exercise Seatbelt Use: always Sunscreen Use: No Assistive Devices: None Allergies Allergies Allergy/AdvReac Type Severity Reaction Status Date / Time No Known Allergies Allergy Verified 01/21/24 12:52 Home Meds Home Medications Medication Instructions Recorded Confirmed docusate sodium 100 mg capsule 100 mg PO DAILY 01/14/24 03/24/24 (Colace) Results & Data (ED) Vital Signs Vital Signs - 24 hr 03/24/24 08:15 03/24/24 08:29 03/24/24 08:45 Temperature 36.8 C Temperature Source Oral Pulse Rate 67 62 Pulse Rate [Apical] Respiratory Rate 17 Respiratory Effort / Characteristics Non-Labored Spontaneous Respiratory Depth Normal Blood Pressure 109/92 Blood Pressure [Right Arm] Blood Pressure Mean 97 Blood Pressure Mean [Right Arm] Pulse Oximetry 100 Oxygen Delivery Method Room Air Room Air Sepsis Recent Fever Within 48 Hours Yes Sepsis New/Unexplained Change in Mental Status No Sepsis Action Taken by Nursing No Action Required 03/24/24 09:26 03/24/24 10:04 03/24/24 12:00 Temperature Temperature Source Pulse Rate Pulse Rate [Apical] 57 L Respiratory Rate 20 Respiratory Effort / Characteristics Non-Labored Spontaneous Respiratory Depth Normal Blood Pressure Blood Pressure [Right Arm] 118/60 Blood Pressure Mean Blood Pressure Mean [Right Arm] 79 Pulse Oximetry 98 Oxygen Delivery Method Room Air Room Air Room Air Sepsis Recent Fever Within 48 Hours Sepsis New/Unexplained Change in Mental Status Sepsis Action Taken by Nursing Laboratory Data 03/24/24 10:29 03/24/24 10:29 Lab Results 03/24/24 03/24/24 03/24/24 Range/Units 10:29 10:32 12:04 WBC 2.32 L (4.8-10.8) K/ul RBC 4.57 (4.20-5.40) M/uL Hgb 14.7 (12.0-16.0) g/dl Hct 41.7 (37.0-47.0) % MCV 91.2 (80.0-100.0) fL MCH 32.2 (25.0-34.0) pg MCHC 35.3 (32.0-36.0) g/dL RDW Std Deviation 40.2 (36.4-46.3) fL RDW Coeff of Pamela 12.0 (11.5-14.5) % Plt Count 109 L (130-400) K/uL MPV 11.4 (9.4-12.4) fL Immature Gran % (Auto) 0.4 % Neut % (Auto) 56.5 % Lymph % (Auto) 28.9 % [place] % (Auto) 13.8 % Eos % (Auto) 0.0 % Baso % (Auto) 0.4 % Neut # (Auto) 1.31 L (1.40-6.50) K/uL Lymph # (Auto) 0.67 L (1.20-3.40) K/uL [place] # (Auto) 0.32 (0.11-0.59) K/uL Eos # (Auto) 0.00 (0.00-0.50) K/uL Baso # (Auto) 0.01 (0.00-0.20) K/uL Immature Gran # (Auto) 0.01 (0.01-0.20) K/uL PT 12.2 H (9.0-12.0) Seconds INR 1.1 (0.9-1.1) APTT 37 H (21-31) Seconds PTT Ratio 1.4 Sodium 131 L (136-145) mmol/L Potassium 4.2 (3.5-5.1) mmol/L Chloride 94 L (98-107) mmol/L Carbon Dioxide 29 (21-32) mmol/L Anion Gap 8 (3-11) BUN 13 (6-23) mg/dl Creatinine 0.88 (0.6-1.2) mg/dl Est Cr Clr Drug Dosing 56.6 ml/min eGFR 69.78 BUN/Creatinine Ratio 14.8 (10-20) Glucose 59 L (70-99(Fasting)) mg/dl POC Glucose 149 H (70-99) mg/dl Calcium 9.4 (8.6-10.3) mg/dl Magnesium 1.7 (1.7-2.4) mg/dl Total Bilirubin 0.6 (0.2-1.0) mg/dl AST 82 H (13-39) U/L ALT 24 (7-52) U/L Alkaline Phosphatase 121 H (34-104) U/L Total Creatine Kinase 1229 H (26-192) U/L Troponin I High Sens 25.4 H (0-14) pg/ml Total Protein 7.9 (6.0-8.3) gm/dl Albumin 4.5 (3.4-5.0) gm/dl Globulin 3.4 (2.5-4.0) gm/dl Albumin/Globulin Ratio 1.3 (0.9-2) TSH 2.897 (0.300-4.500) uIu/ml Adenovirus (PCR) Not Detected (NotDetected) B. pertussis DNA (PCR) Not Detected (NotDetected) B.parapertussis DNA PCR Not Detected (NotDetected) C. pneumoniae DNA (PCR) Not Detected (NotDetected) Coronavirus OC43 (PCR) Not Detected (NotDetected) Coronavirus HKU1 (PCR) Not Detected (NotDetected) Coronavirus 229E (PCR) Not Detected (NotDetected) SARS-CoV-2 (PCR) DETECTED A (NotDetected) Coronavirus NL63 (PCR) Not Detected (NotDetected) Human Metapneumovir PCR Not Detected (NotDetected) Influenza Type A (PCR) Not Detected (NotDetected) Influenza Type B (PCR) Not Detected (NotDetected) M. pneumoniae (PCR) Not Detected (NotDetected) Parainfluenza 1 (PCR) Not Detected (NotDetected) Parainfluenza 2 (PCR) Not Detected (NotDetected) Parainfluenza 3 (PCR) Not Detected (NotDetected) Parainfluenza 4 (PCR) Not Detected (NotDetected) RSV (PCR) Not Detected (NotDetected) Entero/Rhino (PCR) Not Detected (NotDetected) Administered Medications Discontinued Medications Dextrose (Dextrose 50% 50 Ml Syringe) 50 ml IV NOW ONE Stop: 03/24/24 11:17 Last Admin: 03/24/24 11:31 Dose: 50 ml Documented By: JESSEE Fentanyl Citrate (Fentanyl Citrate Pf 100 Mcg/2 Ml Vial) 25 mcg IV NOW STA Stop: 03/24/24 11:52 Last Admin: 03/24/24 12:00 Dose: 25 mcg Documented By: JESSEE Sodium Chloride (Nss) 500 mls @ 999 mls/hr IV .Q31M ONE Stop: 03/24/24 11:34 Last Infusion: 03/24/24 12:42 Dose: Infused Documented By: Admin: 03/24/24 12:07 Dose: 999 mls/hr Documented By: JESSEE Imaging Data Radiologist's Impression: Chest X-Ray 03/24/24 09:26 XR chest 1V portable CLINICAL HISTORY: weakness TECHNIQUE: Single frontal radiograph of the chest was obtained. Comparison: Comparison is made to chest radiograph 05/09/2023 FINDINGS: No lines and tubes are seen. The cardiomediastinal silhouette is normal. Right lower lung airspace opacity is seen. No evidence of pleural effusion or pneumothorax. IMPRESSION: Right lower lung airspace opacity. This may represent atelectasis, pneumonia, and/or aspiration. ACT 112: Negative or not required by law. Electronically signed by: Dario Billings M.D. 03/24/2024 10:[address] 03/24/24 11:04 CT head/brain wo con CLINICAL HISTORY: 73 years-old Female with weakness. Acute weakness TECHNIQUE: Multiple axial CT images of the head were obtained without contrast. A dose lowering technique was utilized adhering to the principles of ALARA. CT DOSE: 625.8 mGy.cm COMPARISON: 05/08/2023 FINDINGS: No acute intracranial hemorrhage, midline shift, intracranial mass, hydrocephalus, territorial ischemia or abnormal extra-axial collection. Senescent mineralization of the lentiform nuclei. Partially empty sella. Mild involutional changes. The calvarium is intact. Minimal mucosal thickening of the paranasal sinuses. Unremarkable soft tissues and orbits. IMPRESSION: No acute intracranial abnormality. ACT 112: Negative or not required by law. The above report was generated using voice recognition software. It may contain grammatical, syntax or spelling errors. Electronically signed by: Timo Montgomery M.D. 03/24/2024 11:33 AM Discharge Plan Visit Data Chief Complaint: Weakness ED Provider: Michelle Ellsworth Discharge Problem: Generalized weakness, Non-ST elevation WY (NSTEMI), Elevated CK, COVID-19, Thrombocytopenia Forms Stand Alone Forms: [facility] Prescriptions Prescriptions: No Action docusate sodium [Colace] 100 mg capsule 100 mg PO DAILY Referrals Referrals: Supriya Gallegos DO [Primary Care Provider] -
[2024-03-24 11:14] LABS: INR 1.1 (0.9-1.1); Partial Thromboplastin Ratio 1.4; Partial Thromboplastin Time 37 Seconds (21-31); Prothrombin Time 12.2 Seconds (9.0-12.0)
[2024-03-24 11:19] LABS: Thyroid Stimulating Hormone 2.897 uIu/ml (0.300-4.500)
[2024-03-24] MEDS: DEXTROSE 50% 50 ML SYRINGE IV ONE ×2 (11:31→15:19)
--- NOTE | 2024-03-24 11:35 | CT Scan Report ---
CT head/brain wo con CLINICAL HISTORY: 73 years-old Female with weakness. Acute weakness TECHNIQUE: Multiple axial CT images of the head were obtained without contrast. A dose lowering tech nique was utilized adhering to the principles of ALARA. CT DOSE: 625.8 mGy.cm COMPARISON: 05/08/2023 FINDINGS: No acute intracranial hemorrhage, midline shift, intracranial mass, hydrocephalus, territorial ischem ia or abnormal extra-axial collection. Senescent mineralization of the lentiform nuclei. Partially em pty sella. Mild involutional changes. The calvarium is intact. Minimal mucosal thickening of the paranasal sinuses. Unremarkable soft tiss ues and orbits. IMPRESSION: No acute intracranial abnormality. ACT 112: Negative or not required by law. The above report was generated using voice recognition software. It may contain grammatical, syntax o r spelling errors. Electronically signed by: Timo Montgomery M.D. 03/24/2024 11:33 AM
[2024-03-24 11:37] LABS: Adenovirus PCR Not Detected (NotDetected); Bordetella parapertussis PCR Not Detected (NotDetected); Bordetella pertussis PCR Not Detected (NotDetected); Chlamydia pneumoniae PCR Not Detected (NotDetected); Coronavirus 229E PCR Not Detected (NotDetected); Coronavirus CoV-2 (COVID19)PCR DETECTED (NotDetected); Coronavirus HKU1 PCR Not Detected (NotDetected); Coronavirus NL63 PCR Not Detected (NotDetected); Coronavirus OC43PCR Not Detected (NotDetected); Human Metapneumovirus PCR Not Detected (NotDetected); Influenza A PCR Not Detected (NotDetected); Influenza B PCR Not Detected (NotDetected); Mycoplasma pneumoniae PCR Not Detected (NotDetected); Parainfluenza Virus 1 PCR Not Detected (NotDetected); Parainfluenza Virus 2 PCR Not Detected (NotDetected); Parainfluenza Virus 3 PCR Not Detected (NotDetected); Parainfluenza Virus 4 PCR Not Detected (NotDetected); Respiratory Syncytial VirusPCR Not Detected (NotDetected); Rhinovirus/Enterovirus PCR Not Detected (NotDetected)
[2024-03-24] MEDS: fentaNYL citrate PF 100 MCG/2 ML VIAL IV STA (12:00)
[2024-03-24] MEDS: SODIUM CHLORIDE 0.9% 500 ML IV ONE (12:07)
[2024-03-24] MEDS ORDERED: ALBUTEROL HFA 8 GM INHALER INH PRN (13:26)
[2024-03-24] MEDS ORDERED: AZITHROMYCIN 500 MG VIAL IV SCH (13:30)
--- NOTE | 2024-03-24 13:38 | History & Physical Report ---
Date of Service March 24, 2024 Assessment & Plan (1) Thrombocytopenia: (2) COVID-19: (3) Rhabdomyolysis: Plan The patient is a 73-year-old female with a past medical history including pituitary adenoma, SIADH, history of community-acquired pneumonia, history of COVID-19 and anxiety. She presents to the emergency department after having progressively worsening symptoms of generalized weakness, fever, cough productive of green and yellow mucus, decreased oral intake and decreased physical activity over the past 24 hours. EMS was called, and brought the patient to the ED for further assessment COVID infection- Give dexamethasone 6 mg IV now, and every morning Remdesivir IV per protocol Albuterol HFA 2 puffs 4 times daily as needed Mucinex 600 mg p.o. every 12 hours Azithromycin 500 mg IV daily Rhabdomyolysis- Secondary to decreased physical activity from above Total CK 1229, and troponin 24.5 Creatinine 0.88 with baseline 0.54-0.74 Follow serially Hypoglycemia- Glucose 59 on admission Did receive amp of D50 with follow-up over 140 Placed on D5 normal saline with KCl 20 mEq at 100 mL/h x 2 L Transaminitis- AST 82 Follow serially General Deconditioning- Will likely need PT OT assessment prior to discharge Thrombocytopenia- Hold antiplatelets and anticoagulants History of Present Illness Chief Complaint: The patient presents to the emergency department with generalized weakness, fe britney, decreased oral intake and decreased physical activity over the past few days. Family reports that she had a cough productive of green and yellow mucus as well. She was unable to get up out of bed around 3:00 in the morning, and family assisted, and patient was then brought to the emergency department via EMS for assessment. Primary Care Provider: Supriya Gallegos, The patient is a 73-year-old female with a past medical history including pituitary adenoma, SIADH, history of community-acquired pneumonia, history of COVID-19 and anxiety. She presents to the emergency department after having progressively worsening symptoms of generalized weakness, fever, cough productive of green and yellow mucus, decreased oral intake and decreased physical activity over the past 24 hours. EMS was called, and brought the patient to the ED for further assessment Allergies Allergy/AdvReac Type Severity Reaction Status Date / Time No Known Allergies Allergy Verified 01/21/24 12:52 Home Medications Medication Instructions Recorded Confirmed Type docusate sodium 100 mg capsule 100 mg PO DAILY 01/14/24 03/24/24 History (Colace) Past Med/Surg History Problem List (Updated 03/24/24 @ 13:48 by Alex Pacheco MD) Rhabdomyolysis Thrombocytopenia (Acute) COVID-19 (Acute) Elevated CK (Acute) Non-ST elevation [place] (NSTEMI) (Acute) Generalized weakness (Acute) Encounter for pre-operative examination Pituitary adenoma At risk for aspiration 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 SIADH (syndrome of inappropriate ADH production) Sinusitis Radiolucent area in mandible Swollen gums Disease of gingiva due to infection Loose, teeth Dental caries Acute bronchitis CAP (community acquired pneumonia) Viral URI (Acute) AMS (altered mental status) (Acute) Acute hyponatremia (Acute) COVID-19 (Acute) Hematuria Urinary frequency Anxiety (Chronic) Surgical History History of brain surgery Family History Mother Diabetes Sister Diabetes Brother Hypertension Other Environmental allergies No family history of adverse response to anesthesia No family history of bleeding disorder Denies family history of Ovarian cancer Prostate cancer Myocardial infarction Breast cancer Colorectal cancer Social History Smoking Status: Never smoker Second Hand Exposure: No; Do You Dip or Chew Tobacco: No; Hx Alcohol Use: No Hx Substance Use: No Preferred Language: Faroese Communication Ability: Effective Visual Impairment: No Limitations Hearing Ability: Normal Frame Wirer Required: No Beliefs That Will Affect Care: None marital status: Single Current Living Situation: Alone and Family Current Living Situation Comment: lives with daughter, but alone most days current occupational status: retired How many Children do You have: 2 How many Children do You have Comment: 1 boy 1 girl Feels Safe at Home: Yes Childhood Exposure to Second-Hand Smoke: No Diet: regular during the past year weight has: remained stable Dental Care, Regularly: No Physical Activity Frequency: Does not Exercise Seatbelt Use: always Sunscreen Use: No Assistive Devices: None Review of Systems Review of Systems: The patient denies palpitations, lower extremity swelling, sore throat, fevers, chills, sweats, nausea, vomiting, diarrhea , constipation, abdominal pain, pelvic pain, blood in urine or stool, dysuria, urinary frequency or urgency, loss of consciousness, rash, abnormal bruising or bleeding, imbalance, focal weakness, numbness or tingling in arms or legs, neck pain, or night sweats. The review of systems is otherwise negative other than for that already noted above, and at least 10 systems have been reviewed. Physical Exam Physical Exam: The patient is lethargic but arousable, normocephalic and atraumatic, lying in bed and in no acute distress. HEENT--PERRL, EOMI, mucous membranes and oropharynx dry. Neck--supple. No JVD. No bruits. Thyroid normal, trachea midline, no adenopathy. Heart--normal S1 and S2. No murmurs, rubs or gallops. Lungs--clear bilaterally, no respiratory distress, no accessory muscle use. Abdomen--normal bowel sounds and soft. Nontender. Nondistended, no hernias or masses, no organomegaly. Extremities--no cyanosis or clubbing. No edema. There are good distal pulses b/l. Dermatologic--normal skin turgor, normal color, no abnormal lymph nodes, no rash. Neurologic--cranial nerves II through XII grossly intact. Rheumatologic--normal range of motion. Psychiatric--normal affect. Results & Data Results & Data Vital Signs (Past 12 Hours) Vital Signs Temp Pulse Pulse Resp BP BP Pulse Ox 03/24/24 12:00 57 L 20 118/60 98 03/24/24 10:04 03/24/24 09:26 03/24/24 08:45 62 03/24/24 08:29 03/24/24 08:15 36.8 C 67 17 109/92 100 O2 Del Method 03/24/24 12:00 Room Air 03/24/24 10:04 Room Air 03/24/24 09:26 Room Air 03/24/24 08:45 03/24/24 08:29 Room Air 03/24/24 08:15 Room Air Laboratory Results Laboratory Results WBC 2.32 K/ul (4.8-10.8) L 03/24/24 10:29 RBC 4.57 M/uL (4.20-5.40) 03/24/24 10:29 Hgb 14.7 g/dl (12.0-16.0) 03/24/24 10: Hct 41.7 % (37.0-47.0) 03/24/24 10: MCV 91.2 fL (80.0-100.0) 03/24/24 10: MCH 32.2 pg (25.0-34.0) 03/24/24 10: MCHC 35.3 g/dL (32.0-36.0) 03/24/24 10: RDW Std Deviation 40.2 fL (36.4-46.3) 03/24/24 10: RDW Coeff of Pamela 12.0 % (11.5-14.5) 03/24/24 10: Plt Count 109 K/uL (130-400) L 03/24/24 10: MPV 11.4 fL (9.4-12.4) 03/24/24 10: Immature Gran % (Auto) 0.4 % 03/24/24 10: Neut % (Auto) 56.5 % 03/24/24 10:29 Lymph % (Auto) 28.9 % 03/24/24 10:29 Mclean % (Auto) 13.8 % 03/24/24 10:29 Eos % (Auto) 0.0 % 03/24/24 10: Baso % (Auto) 0.4 % 03/24/24 10: Neut # (Auto) 1.31 K/uL (1.40-6.50) L 03/24/24 10: Lymph # (Auto) 0.67 K/uL (1.20-3.40) L 03/24/24 10:29 Mclean # (Auto) 0.32 K/uL (0.11-0.59) 03/24/24 10: Eos # (Auto) 0.00 K/uL (0.00-0.50) 03/24/24 10: Baso # (Auto) 0.01 K/uL (0.00-0.20) 03/24/24 10: Immature Gran # (Auto) 0.01 K/uL (0.01-0.20) 03/24/24 10: PT 12.2 Seconds (9.0-12.0) H 03/24/24 10:29 INR 1.1 (0.9-1.1) 03/24/24 10:29 APTT 37 Seconds (21-31) H 03/24/24 10: PTT Ratio 1.4 03/24/24 10:29 Sodium 131 mmol/L (136-145) L 03/24/24 10:29 Potassium 4.2 mmol/L (3.5-5.1) 03/24/24 10:29 Chloride 94 mmol/L (98-107) L 03/24/24 10:29 Carbon Dioxide 29 mmol/L (21-32) 03/24/24 10: Anion Gap 8 (3-11) 03/24/24 10: BUN 13 mg/dl (6-23) 03/24/24 10: Creatinine 0.88 mg/dl (0.6-1.2) 03/24/24 10: Est Cr Clr Drug Dosing 56.6 ml/min 03/24/24 10: eGFR 69.78 03/24/24 10: BUN/Creatinine Ratio 14.8 (10-20) 03/24/24 10:29 Glucose 59 mg/dl (70-99(Fasting)) L 03/24/24 10:29 POC Glucose 149 mg/dl (70-99) H 03/24/24 12:04 Calcium 9.4 mg/dl (8.6-10.3) 03/24/24 10: Magnesium 1.7 mg/dl (1.7-2.4) 03/24/24 10: Total Bilirubin 0.6 mg/dl (0.2-1.0) 03/24/24 10:29 AST 82 U/L (13-39) H 03/24/24 10:29 ALT 24 U/L (7-52) 03/24/24 10:29 Alkaline Phosphatase 121 U/L (34-104) H 03/24/24 10:29 Total Creatine Kinase 1229 U/L (26-192) H 03/24/24 10:29 Troponin I High Sens 24.5 pg/ml (0-14) H 03/24/24 12:23 Total Protein 7.9 gm/dl (6.0-8.3) 03/24/24 10:29 Albumin 4.5 gm/dl (3.4-5.0) 03/24/24 10:29 Globulin 3.4 gm/dl (2.5-4.0) 03/24/24 10:29 Albumin/Globulin Ratio 1.3 (0.9-2) 03/24/24 10: TSH 2.897 uIu/ml (0.300-4.500) 03/24/24 10:29 Adenovirus (PCR) Not Detected (NotDetected) 03/24/24 10:32 B. pertussis DNA (PCR) Not Detected (NotDetected) 03/24/24 10:32 B.parapertussis DNA PCR Not Detected (NotDetected) 03/24/24 10:32 C. pneumoniae DNA (PCR) Not Detected (NotDetected) 03/24/24 10:32 Coronavirus OC43 (PCR) Not Detected (NotDetected) 03/24/24 10:32 Coronavirus HKU1 (PCR) Not Detected (NotDetected) 03/24/24 10:32 Coronavirus 229E (PCR) Not Detected (NotDetected) 03/24/24 10:32 SARS-CoV-2 (PCR) DETECTED (NotDetected) A 03/24/24 10:32 Coronavirus NL63 (PCR) Not Detected (NotDetected) 03/24/24 10:32 Human Metapneumovir PCR Not Detected (NotDetected) 03/24/24 10:32 Influenza Type A (PCR) Not Detected (NotDetected) 03/24/24 10:32 Influenza Type B (PCR) Not Detected (NotDetected) 03/24/24 10:32 M. pneumoniae (PCR) Not Detected (NotDetected) 03/24/24 10:32 Parainfluenza 1 (PCR) Not Detected (NotDetected) 03/24/24 10:32 Parainfluenza 2 (PCR) Not Detected (NotDetected) 03/24/24 10:32 Parainfluenza 3 (PCR) Not Detected (NotDetected) 03/24/24 10:32 Parainfluenza 4 (PCR) Not Detected (NotDetected) 03/24/24 10:32 RSV (PCR) Not Detected (NotDetected) 03/24/24 10:32 Entero/Rhino (PCR) Not Detected (NotDetected) 03/24/24 10:32 Impressions Chest X-Ray 03/24/24 09:26 XR chest 1V portable CLINICAL HISTORY: weakness TECHNIQUE: Single frontal radiograph of the chest was obtained. Comparison: Comparison is made to chest radiograph 05/09/2023 FINDINGS: No lines and tubes are seen. The cardiomediastinal silhouette is normal. Right lower lung airspace opacity is seen. No evidence of pleural effusion or pneumothorax. IMPRESSION: Right lower lung airspace opacity. This may represent atelectasis, pneumonia, and/or aspiration. ACT 112: Negative or not required by law. Electronically signed by: Dario Billings M.D. 03/24/2024 10:[address] 03/24/24 11:04 CT head/brain wo con CLINICAL HISTORY: 73 years-old Female with weakness. Acute weakness TECHNIQUE: Multiple axial CT images of the head were obtained without contrast. A dose lowering technique was utilized adhering to the principles of ALARA. CT DOSE: 625.8 mGy.cm COMPARISON: 05/08/2023 FINDINGS: No acute intracranial hemorrhage, midline shift, intracranial mass, hydrocephalus, territorial ischemia or abnormal extra-axial collection. Senescent mineralization of the lentiform nuclei. Partially empty sella. Mild involutional changes. The calvarium is intact. Minimal mucosal thickening of the paranasal sinuses. Unremarkable soft tissues and orbits. IMPRESSION: No acute intracranial abnormality. ACT 112: Negative or not required by law. The above report was generated using voice recognition software. It may contain grammatical, syntax or spelling errors. Electronically signed by: Timo Montgomery M.D. 03/24/2024 11:33 AM Code Status & VTE Plan Code Status Full code VTE Prophylaxis Plan VTE Prophylaxis will be ordered: Yes PG Care Time/CCT Total # of Minutes Spent Total Time Spent with Patient: Total time spent is greater than 50% in coordination of care (as documented) at patient's floor/unit and/or counseling patient: Coding Level of Care Code 65343 INT INP/OBS CARE 3/75MIN Diagnoses Thrombocytopenia D69.6 COVID-19 U07.1 Rhabdomyolysis M62.82
--- NOTE | 2024-03-24 13:49 | Billing Data ---
Date of Service March 24, 2024 Coding Level of Care Code 92425 INT INP/OBS CARE
[2024-03-24] MEDS: dexAMETHasone 6 MG in SYRINGE 0 ML IV ONE (14:16)
[2024-03-24] MEDS: AZITHROMYCIN 500 MG in SODIUM CHLORIDE 0.9% 250 ML IV SCH (14:18)
[2024-03-24] MEDS: REMDESIVIR 200 MG in SODIUM CHLORIDE 0.9% 210 ML IV STA (14:34)
[2024-03-24 14:36] LABS: Appearance Urine Clear (Clear); Bacteria Urine Automated None Seen (None Seen); Bilirubin Urine Negative (Negative); Blood Urine 2+ (Negative); Cast Urine Automated 0-2 /lpf (0-2); Color Urine Yellow; Epithelial Cell Urine Auto 0-2 /hpf (0-2); Glucose Urine UA Trace (Negative); Ketones Urine 1+ (Negative); Leukocyte Esterase Urine Negative (Negative); Nitrite Urine Negative (Negative); Protein Urine Negative (Negative); RBC Urine Automated >20 /hpf (0-2); Specific Gravity Urine 1.023 (1.000-1.030); Urobilinogen Urine Negative (Negative); WBC Urine Automated 0-5 /hpf (0-5); pH Urine 6.5 (4.5-7.5)
[2024-03-24] MEDS ORDERED: GLUCOSE 40% GEL 15 GM TUBE PO PRN (15:35)
[2024-03-24] MEDS ORDERED: CARBOHYDRATES FOR HYPOGLYCEMIA PO PRN (15:35)
[2024-03-24] MEDS ORDERED: GLUCOSE 10 TAB/TUBE PO PRN (15:35)
[2024-03-24] MEDS ORDERED: DEXTROSE 50% 50 ML SYRINGE IV PRN (15:35)
[2024-03-24] MEDS ORDERED: GLUCAGON FOR INJ 1 MG VIAL SQ PRN (15:35)
[2024-03-24] MEDS: INSULIN ASPART PER UNIT CHARGE SC SCH (15:58)
[2024-03-24] MEDS: D5NSS + 20MEQ KCL 20 MEQ/1,000 ML BAG IV SCH (16:55)
[2024-03-24] MEDS: ENOXAPARIN INJ 40 MG/0.4 ML SYR SQ SCH (17:33)
[2024-03-25 06:53] LABS: Hematocrit (blood only) 34.3 % (37.0-47.0); Hemoglobin 12.3 g/dl (12.0-16.0); Immature Granulocytes # (auto) 0.02 K/uL (0.01-0.20); Lymphocytes # (auto) 0.71 K/uL (1.20-3.40); Mean Corpuscular Hemoglobin 32.7 pg (25.0-34.0); Mean Corpuscular Hgb Conc 35.9 g/dL (32.0-36.0); Mean Corpuscular Volume 91.2 fL (80.0-100.0); Mean Platelet Volume 11.7 fL (9.4-12.4); Monocytes # (auto) 0.08 K/uL (0.11-0.59); Monocytes % (auto) 4.1 %; Neutrophils # (auto) 1.16 K/uL (1.40-6.50); Neutrophils % (auto) 58.9 %; Platelet Count 128 K/uL (130-400); RDW Coefficient of Variation 11.9 % (11.5-14.5); RDW Standard Deviation 39.8 fL (36.4-46.3); Red Blood Count 3.76 M/uL (4.20-5.40); White Blood Count 1.97 K/ul (4.8-10.8)
[2024-03-25 06:55] LABS: BUN Creatinine Ratio 17.2 (10-20); Calcium 8.8 mg/dl (8.6-10.3); Creatinine Clr Calc Pharmacy 80.2 ml/min
[2024-03-25 07:13] LABS: Albumin Globulin Ratio 1.2 (0.9-2); Albumin Level 3.8 gm/dl (3.4-5.0); Bilirubin,Total 0.4 mg/dl (0.2-1.0); Globulin 3.2 gm/dl (2.5-4.0); Magnesium 1.8 mg/dl (1.7-2.4)
--- NOTE | 2024-03-25 07:29 | Hospitalist Progress Note ---
Date of Service March 25, 2024 Assessment & Plan (1) Thrombocytopenia: (2) COVID-19: (3) Rhabdomyolysis: Plan The patient is a 73-year-old female with a past medical history including pituitary adenoma, SIADH, history of community-acquired pneumonia, history of COVID-19 and anxiety. She presents to the emergency department after having progressively worsening symptoms of generalized weakness, fever, cough productive of green and yellow mucus, decreased oral intake and decreased physical activity over the past 24 hours. EMS was called, and brought the patient to the ED for further assessment #COVID Infection - Give dexamethasone 6 mg IV - Remdesivir IV (200 mg once) to 100 mg QD per protocol - Albuterol HFA 2 puffs 4 times daily as needed - Mucinex 600 mg p.o. every 12 hours - Azithromycin 500 mg IV daily #Rhabdomyolysis #Thigh Weakness/Knee Pain - Suspected from decreased physical activity from above -- Can consider DVT due to acute setting -- LLE doppler ordered (03/25) - PT/OT consulted (03/25) - Total CK (1229 - 3175) - Troponin 24.5 on admission - Creatinine 0.88 (03/24) with baseline 0.54-0.74 -- Cr 0.64 (03/25) - Follow serially - 1 L NS bolus (03/24) - Plasma-Lyte (100 mls/hour) #Hypoglycemia - Glucose 59 on admission - Did receive amp of D50 with follow-up over 140 - Placed on D5 normal saline with KCl 20 mEq at 100 mL/h x 2 L - Dextrose solution and oral supplemental PRN - Glucagon 1 mg UD PRN QD - Urine ketones: 1+ - 165 fasting on 03/25 - Insulin onboard #Transaminitis - AST (82 - 151) - ALP (121 - 144) - Follow serially DVT Prophylaxis: Enoxaparin 40 mg SubQ Plts: 109 - 128 K/uL Admission and Anticipated Discharge Date Admission Date: March 24, 2024 Supervising Physician Co-Signing Physician Notes Attending Physician Supervision Note: I independently interviewed and examined the patient and verified the foley history and physical, reviewed labs and image studies and agree with findings and care plan noted above. Seen this am. left thigh weakness still +. No cramps. No chest pain, shortness of breath. vitals noted nad heent nc at mmm breathing unlabored no accessory muscles good effort skin no rashes no pallor or icterus neuro no focal deficits. CTA, RRR. COVID with pneumonia - continue steroids, remdesivir, azithromycin Rhabdomyolysis with left thigh weakness - in setting of chronic left knee arthritis. -IVF hydration. PT/OT eval Lymphopenia and thrombocytopenia - likely from acute infection with low baselines. Follow. Tiffany Subjective Ms. Montes De Oca was seen at bedside this morning. Overall she says she is doing well. She states that she has no shortness of breath, coughing, or difficulty breathing. Her main concern was new onset left thigh weakness leading her to present to the ED as she could not care for herself without family member assistance. She also mentions continued knee and hip pain which she attributes to osteoarthritis, which further exacerbated her ability to ambulate. She has been able to sit up in bed, but has not tried to ambulate, but would like to with family or therapists. She mentioned she talked with her PCP who mentioned called her about a potential kidney issue. She was unsure if this was due to the admission or a preexisting condition. We talked about her potential rhabdomyolysis which may be what her PCP was referring to. She has not had a bowel movement in the past few days, but is otherwise able to pass urine. She mentions that her family will be in today to help her move a bit. Otherwise, she has no concerns Review of Systems Review of Systems: Per HPI Physical Exam Constitutional: Ms. Vizcaino was seen lying comfortably in bed in no acute distress Respiratory: Lung sounds appear diminished, but otherwise clear to auscultation bilaterally No wheezes, crackles, or rhonchi were appreciated No increased work of breathing Cardiovascular: Bradycardiac S1 and S2 appreciated without rubs, murmurs, or gallops Gastrointestinal (Abdomen): Normal bowel sounds Soft, no tenderness to palpation Results & Data Results & Data Vital Signs (Past 12 Hours) Vital Signs Temp Pulse Resp BP Pulse Ox O2 Del Method 03/25/24 03:42 36.5 C 50 L 16 106/52 L 98 Room Air 03/24/24 23:21 36.7 C 55 L 18 114/54 L 99 Room Air 03/24/24 20:45 Room Air 03/24/24 19:30 36.9 C 59 L 17 111/56 L 96 Room Air
[2024-03-25] MEDS: PLASMA-LYTE A 1,000 ML IV SCH (08:00)
[2024-03-25] MEDS: dexAMETHasone 6 MG in SYRINGE 0 ML IV SCH (13:01)
[2024-03-25] MEDS: REMDESIVIR 100 MG in SODIUM CHLORIDE 0.9% 230 ML IV SCH (13:01)
[2024-03-25] MEDS ORDERED: ACETAMINOPHEN 325 MG TAB PO PRN (15:35)
--- NOTE | 2024-03-25 15:52 | Ultrasound Report ---
LEFT LOWER EXTREMITY VENOUS DOPPLER HISTORY: Acute pain and swelling left lower leg left leg pain COMPARISON STUDY: 11/12/2019 FINDINGS: There is normal compressibility, flow, and augmentation within the left lower extremity clementina p venous system. IMPRESSION: No DVT within the left lower extremity. ACT 112: Negative or not required by law. Electronically signed by: Timo Montgomery M.D. 03/25/2024 3:51 PM
--- NOTE | 2024-03-26 06:21 | Electrocardiogram Report ---
Test Reason : Blood Pressure : */* mmHG Vent. Rate : 51 BPM Atrial Rate : 51 BPM P-R Int : 146 ms QRS Dur : 106 ms QT Int : 462 ms P-R-T Axes : 61 24 -59 degrees QTcB Int : 425 ms Sinus bradycardia Low voltage QRS Incomplete right bundle branch block Septal infarct , age undetermined Abnormal ECG When compared with ECG of 09-May-2023 08:21, Septal infarct is now Present Confirmed by Dany Amador ([id number]) on 03/26/2024 6:20:54 AM Referred By: REFERRED SELF Confirmed By: Dany Amador
[2024-03-26 06:49] LABS: Basophils # (auto) 0.01 K/uL (0.00-0.20); Basophils % (auto) 0.1 %; Hematocrit (blood only) 34.3 % (37.0-47.0); Hemoglobin 12.2 g/dl (12.0-16.0); Immature Granulocytes # (auto) 0.02 K/uL (0.01-0.20); Immature Granulocytes % (auto) 0.2 %; Lymphocytes # (auto) 1.16 K/uL (1.20-3.40); Lymphocytes % (auto) 14.1 %; Mean Corpuscular Hemoglobin 32.5 pg (25.0-34.0); Mean Corpuscular Hgb Conc 35.6 g/dL (32.0-36.0); Mean Corpuscular Volume 91.5 fL (80.0-100.0); Mean Platelet Volume 11.4 fL (9.4-12.4); Monocytes % (auto) 3.7 %; Neutrophils # (auto) 6.71 K/uL (1.40-6.50); Neutrophils % (auto) 81.9 %; Platelet Count 136 K/uL (130-400); RDW Coefficient of Variation 11.9 % (11.5-14.5); RDW Standard Deviation 40.1 fL (36.4-46.3); Red Blood Count 3.75 M/uL (4.20-5.40)
[2024-03-26 07:06] LABS: Albumin Globulin Ratio 1.3 (0.9-2); Albumin Level 3.7 gm/dl (3.4-5.0); BUN Creatinine Ratio 23.2 (10-20); Bilirubin,Total 0.4 mg/dl (0.2-1.0); Calcium 8.7 mg/dl (8.6-10.3); Creatinine Clr Calc Pharmacy 74.3 ml/min; Globulin 2.9 gm/dl (2.5-4.0); Potassium 3.9 mmol/L (3.5-5.1); Total Protein 6.6 gm/dl (6.0-8.3)
--- NOTE | 2024-03-26 09:45 | Hospitalist Progress Note ---
Date of Service March 26, 2024 Assessment & Plan (1) Thrombocytopenia: (2) COVID-19: (3) Rhabdomyolysis: Plan The patient is a 73-year-old female with a past medical history including pituitary adenoma, SIADH, history of community-acquired pneumonia, history of COVID-19 and anxiety. She presents to the emergency department after having progressively worsening symptoms of generalized weakness, fever, cough productive of green and yellow mucus, decreased oral intake and decreased physical activity over the past 24 hours. EMS was called, and brought the patient to the ED for further assessment #COVID Infection - Give dexamethasone 6 mg IV - Remdesivir IV (200 mg once) to 100 mg QD per protocol - Albuterol HFA 2 puffs 4 times daily as needed - Mucinex 600 mg p.o. every 12 hours - Azithromycin 500 mg IV daily #Rhabdomyolysis #Thigh Weakness/Knee Pain/Hip Pain - Suspected from decreased physical activity from above -- Can consider DVT due to acute setting -- LLE doppler ordered (03/25): No DVT present - PT/OT consulted (03/25) -- Indicated that she is below her baseline and have been working with her -- Will follow recommendations and updates - Total CK (1229 - 3175 - 1810) - Troponin 24.5 on admission - Creatinine 0.88 (03/24) with baseline 0.54-0.74 -- Cr 0.64 (03/25), 0.69 (03/26) - Follow serially - 1 L NS bolus (03/24) - Plasma-Lyte (100 mls/hour) #Bradycardia - Based on patient history, appears to be bradycardic normally - Follow on telemetry - Consider cardiology outpatient #Hypoglycemia - Glucose 59 on admission - Did receive amp of D50 with follow-up over 140 - Placed on D5 normal saline with KCl 20 mEq at 100 mL/h x 2 L - Dextrose solution and oral supplemental PRN - Glucagon 1 mg UD PRN QD - Urine ketones: 1+ - 165 fasting on 03/25 - Insulin onboard #Thrombocytopenia - Platelets: 109 - 128 - 136 - Appears to be WNL 03/26/2024 - Following serially #Transaminitis - AST (82 - 151 - 98) - ALP (121 - 144 - 122) - Follow serially DVT Prophylaxis: Enoxaparin 40 mg SubQ Plts: 109 - 128 K/uL Admission and Anticipated Discharge Date Admission Date: March 24, 2024 Supervising Physician Co-Signing Physician Notes Attending Physician Supervision Note: I independently interviewed and examined the patient and verified the foley history and physical, reviewed labs and image studies and agree with findings and care plan noted above. Feeling much better today. Eating lunch. Good appetite. vitals noted nad heent nc at mmm breathing unlabored no accessory muscles good effort skin no rashes no pallor or icterus neuro no focal deficits. COVID with pneumonia - continue steroids, remdesivir, azithromycin Rhabdomyolysis with left thigh weakness - in setting of chronic left knee arthritis. Rhabdo improved with IVF hydration. PT/OT eval recommending rehab. Bradycardia - low baseline readings. PT was concerned that she tires easily and wondered if that is from bradycardia - likely not. Will need to notify case mx in am of PT recommendation. [address] Ms. Montes De Oca was seen at bedside this morning. She states that her family visited yesterday, and she was appreciative of their visit. She is without shortness of breath, coughing, difficulty breathing, or dizziness with standing/ambulating short distances. She was pleased to have a bowel movement yesterday. She mentions she had more severe pain in her hip and knee yesterday when her room was cool, but this pain subsided with increasing the temperature. Her thigh weakness is still present and relatively unchanged from yesterday. Her main concern was hearing that she has a low heart rate reading ~40 bpm. She mentioned that she was very active and usually has a lower heart rate. I reassure her that we will monitor as when I saw her, she was ~50 bpm on telemetry monitoring. She was updated regarding her kidney function appears to be doing better on the most recent labs. She appeared pleased with this. Otherwise, she has no further questions or updates. We met Ms. oMntes De Oca this afternoon. She indicated that she still has the left leg weakness but has been working with PT/OT to get stronger. We discussed that feeling safe in her home is a must as she lives with 12 stairs. We chatted about the possibly of acute rehab, and she appeared open to this. Otherwise, she has been able to elevate her heart rate with exercise (PT/OT) and is without dizziness, feeling faint, light headed, or the need to sit down. She has further questions or concerns. Review of Systems Review of Systems: Per HPI Physical Exam Constitutional: Sitting comfortably in bed No acute distress Respiratory: Lungs are clear to ascultation bilaterally No wheezes, crackles, or rhonchi appreciated Conversational without shortness of breath Cardiovascular: Bradycardic S1 and S2 appreciated No rubs, murmurs, or gallops Gastrointestinal (Abdomen): Normal bowel sounds No organomegaly No tenderness to palpation Musculoskeletal: Left thigh without pain to palpation Results & Data Results & Data Vital Signs (Past 12 Hours) Vital Signs Temp Pulse Pulse Pulse Resp BP Pulse Ox 03/26/24 04:45 37 L 03/26/24 04:15 36.4 C L 50 L 16 111/60 95 03/25/24 23:10 36.6 C 44 L 16 123/48 L 96 03/25/24 21:52 45 L O2 Del Method 03/26/24 04:45 03/26/24 04:15 Room Air 03/25/24 23:10 Room Air 03/25/24 21:52
[2024-03-26] MEDS ORDERED: Nursing to Pharmacy Communication SCH (15:30)
[2024-03-27 07:36] LABS: Hematocrit (blood only) 35.4 % (37.0-47.0); Hemoglobin 12.5 g/dl (12.0-16.0); Immature Granulocytes # (auto) 0.03 K/uL (0.01-0.20); Immature Granulocytes % (auto) 0.3 %; Lymphocytes # (auto) 1.11 K/uL (1.20-3.40); Lymphocytes % (auto) 12.8 %; Mean Corpuscular Hemoglobin 32.9 pg (25.0-34.0); Mean Corpuscular Hgb Conc 35.3 g/dL (32.0-36.0); Mean Corpuscular Volume 93.2 fL (80.0-100.0); Mean Platelet Volume 12.1 fL (9.4-12.4); Monocytes # (auto) 0.16 K/uL (0.11-0.59); Monocytes % (auto) 1.8 %; Neutrophils # (auto) 7.38 K/uL (1.40-6.50); Neutrophils % (auto) 85.1 %; Platelet Count 139 K/uL (130-400); RDW Coefficient of Variation 12.9 % (11.5-14.5); RDW Standard Deviation 43.6 fL (36.4-46.3); White Blood Count 8.68 K/ul (4.8-10.8)
[2024-03-27 08:08] LABS: Albumin Globulin Ratio 1.3 (0.9-2); BUN Creatinine Ratio 21.9 (10-20); Bilirubin,Total 0.4 mg/dl (0.2-1.0); Calcium 8.9 mg/dl (8.6-10.3); Creatinine Clr Calc Pharmacy 67.6 ml/min; Globulin 3.2 gm/dl (2.5-4.0); Potassium 3.9 mmol/L (3.5-5.1); Total Protein 7.2 gm/dl (6.0-8.3)
--- NOTE | 2024-03-27 09:33 | Hospitalist Progress Note ---
Date of Service March 27, 2024 Assessment & Plan (1) Thrombocytopenia: (2) COVID-19: (3) Rhabdomyolysis: Plan The patient is a 73-year-old female with a past medical history including pituitary adenoma, SIADH, history of community-acquired pneumonia, history of COVID-19 and anxiety. She presents to the emergency department after having progressively worsening symptoms of generalized weakness, fever, cough productive of green and yellow mucus, decreased oral intake and decreased physical activity over the past 24 hours. EMS was called, and brought the patient to the ED for further assessment #COVID Infection - Give dexamethasone 6 mg IV (discontinued 03/27) - Remdesivir IV (200 mg once) to 100 mg QD per protocol (finishes 03/28) - Albuterol HFA 2 puffs 4 times daily as needed - Mucinex 600 mg p.o. every 12 hours - Azithromycin 500 mg IV daily (03/24 - 03/27) #Rhabdomyolysis #Thigh Weakness/Knee Pain/Hip Pain - Suspected from decreased physical activity from above -- Can consider DVT due to acute setting -- LLE doppler ordered (03/25): No DVT present - PT/OT evaluated (03/26) -- Indicated that she is below her baseline and are working with her -- She would be a good rehab candidate -- Will follow recommendations and updates - Total CK (1079 - 7070 - 1810 1002) - Troponin 24.5 on admission - Creatinine 0.88 (03/24) with baseline 0.54-0.74 -- Cr 0.64 (03/25), 0.69 (03/26), 0.73 (03/26) - Follow serially - 1 L NS bolus (03/24) - Plasma-Lyte (100 mls/hour) -- Discontinued (03/27) due to downtrending CK #Bradycardia - Based on patient history, appears to be bradycardic normally - Follow on telemetry -- Sinus bradycardia - Consider cardiology outpatient #Hypoglycemia - Glucose 59 on admission - Did receive amp of D50 with follow-up over 140 - Placed on D5 normal saline with KCl 20 mEq at 100 mL/h x 2 L - Dextrose solution and oral supplemental PRN - Glucagon 1 mg UD PRN QD - Urine ketones: 1+ - 165 fasting on 03/25 - Insulin onboard - Eats one meal a day, may be contributing to hypoglycemia #Thrombocytopenia - Platelets: 109 - 128 - 136 - 139 - Appears to be WNL 03/26/2024 - Following serially #Transaminitis - AST (82 - 151 - 98 - 84) - ALP (121 - 144 - 122 - 119) - Follow serially DVT Prophylaxis: Enoxaparin 40 mg SubQ Admission and Anticipated Discharge Date Admission Date: March 24, 2024 Supervising Physician Co-Signing Physician Notes I personally examined the patient and verified foley points of history and exam, discussed case, and agree with decision making and plan documented by Nitin Romero [facility]. Patient appears comfortable, lungs clear b/l to auscultation, bradycardic rate, normal rhythm, abdomen soft, no acute distress. Oxygen saturation appropriate on room air. Patient appears chronically bradycardic and asymptomatic, continue to monitor on telemetry.Unfortunately, [facility] cannot take patient until 04/03/2023 due to COVID-19 infection, bed may be available at [place], patient will benefit from rehab. Subjective Ms. Montes De Oca was seen at bedside this morning while eating breakfast. We discussed her OT/PT evaluations and rehab recommendations. During the evaluations she denies shortness of breath, dizziness, dyspnea with exertion, feeling faint, or hitting a wall with inability to raise her heart rate (which did reach the 70-80s). She mentioned that she feels mildly stronger and much better after moving around yesterday. She still is interested in acute rehab and would prefer to go back to [facility] after having a great previous experience. She mentions that she typically eats one meal a day, so having three meals delivered is a tad excessive. We discussed keeping up with adequate intake, especially with working with our team's therapists and future rehab. Otherwise, she has no further questions or updates. Review of Systems Review of Systems: Per HPI Physical Exam Constitutional: Sitting comfortably in bed No apparent distress Respiratory: Lungs are clear to ascultation bilaterally No wheezes, rhonchi, or crackles appreicated Non-labored breathing with appropriate rate Cardiovascular: Bradycardic S1 and S2 appreciated No rubs, murmurs, or gallops Results & Data Results & Data Vital Signs (Past 12 Hours) Vital Signs Temp Pulse Pulse Pulse Resp BP Pulse Ox 03/27/24 07:54 36.6 C 45 L 18 134/73 100 03/27/24 07:00 46 L 03/27/24 02:32 36.5 C 45 L 18 137/59 L 99 03/26/24 22:35 36.4 C L 40 L 18 132/61 99 03/26/24 22:01 42 L 03/26/24 21:30 O2 Del Method 03/27/24 07:54 Room Air 03/27/24 07:00 03/27/24 02:32 Room Air 03/26/24 22:35 Room Air 03/26/24 22:01 03/26/24 21:30 Room Air
[2024-03-28 06:49] LABS: Hematocrit (blood only) 33.4 % (37.0-47.0); Hemoglobin 11.8 g/dl (12.0-16.0); Mean Corpuscular Hemoglobin 32.7 pg (25.0-34.0); Mean Corpuscular Hgb Conc 35.3 g/dL (32.0-36.0); Mean Corpuscular Volume 92.5 fL (80.0-100.0); Mean Platelet Volume 11.8 fL (9.4-12.4); Platelet Count 123 K/uL (130-400); RDW Coefficient of Variation 12.6 % (11.5-14.5); RDW Standard Deviation 42.7 fL (36.4-46.3); Red Blood Count 3.61 M/uL (4.20-5.40)
[2024-03-28 06:56] LABS: Albumin Globulin Ratio 1.3 (0.9-2); Albumin Level 3.6 gm/dl (3.4-5.0); BUN Creatinine Ratio 22.7 (10-20); Bilirubin,Total 0.5 mg/dl (0.2-1.0); Calcium 8.5 mg/dl (8.6-10.3); Creatinine Clr Calc Pharmacy 64.7 ml/min; Globulin 2.8 gm/dl (2.5-4.0); Potassium 3.6 mmol/L (3.5-5.1); Total Protein 6.4 gm/dl (6.0-8.3)
[2024-03-28 07:03] LABS: Eosinophils # (auto) 0.01 K/uL (0.00-0.50); Eosinophils % (auto) 0.2 %; Immature Granulocytes # (auto) 0.01 K/uL (0.01-0.20); Immature Granulocytes % (auto) 0.2 %; Lymphocytes # (auto) 2.79 K/uL (1.20-3.40); Lymphocytes % (auto) 42.3 %; Monocytes # (auto) 0.29 K/uL (0.11-0.59); Monocytes % (auto) 4.4 %; Neutrophils % (auto) 52.9 %; Rouleaux 1+
--- NOTE | 2024-03-28 07:11 | Hospitalist Progress Note ---
Date of Service March 28, 2024 Assessment & Plan (1) Thrombocytopenia: (2) COVID-19: (3) Rhabdomyolysis: Plan The patient is a 73-year-old female with a past medical history including pituitary adenoma, SIADH, history of community-acquired pneumonia, history of COVID-19 and anxiety. She presents to the emergency department after having progressively worsening symptoms of generalized weakness, fever, cough productive of green and yellow mucus, decreased oral intake and decreased physical activity over the past 24 hours. EMS was called, and brought the patient to the ED for further assessment #COVID Infection *STABLE for DC - Dexamethasone and Azithro completed D3 and DCed. - Remdesivir IV (200 mg once) to 100 mg QD per protocol (finishes today) - Albuterol HFA 2 puffs 4 times daily as needed - Mucinex 600 mg p.o. every 12 hours #Rhabdomyolysis #Thigh Weakness/Knee Pain/Hip Pain - Suspected from decreased physical activity from above - DVT ruled out. - PT/OT: recs Rehab - CK improving 1002) #Bradycardia - Based on patient history, appears to be bradycardic normally - Follow on telemetry: Sinus bradycardia - Consider cardiology outpatient #Hypoglycemia - Improved on admission - on regular diet #Thrombocytopenia - Improved #Transaminitis Improving AST/ALT/ALP: 79/34/99 DVT Prophylaxis: Enoxaparin 40 mg SubQ Dispo: Pending placement to rehab to [facility] Transportation issue; family wont be able to transport. Admission and Anticipated Discharge Date Admission Date: March 24, 2024 Supervising Physician Co-Signing Physician Notes I personally examined the patient and verified foley points of history and exam, discussed case, and agree with decision making and plan documented by Dr. Donaldson. Patient appears chronically bradycardic and asymptomatic, continue to monitor on telemetry. Unfortunately, [facility] due to COVID-19 infection, bed may be available at [place], patient will benefit from rehab, barrier is lack of transportation. . Subjective This AM Charis feels much better, she feels she is ready to DC, agrees with rehab, Admits that her daughter does not drive and they use public transport. Daughter works in [employer] and she is the only healthcare economics consultant of her. No new complains. Review of Systems Review of Systems: As per HPI Physical Exam Physical Exam: Constitutional: Well appearing, No acute distress, Pale looking. HEENT: Atraumatic, Normocephalic, No conjunctival injection CVS: S1 S2 no murmur, Regular Rhythm Respiratory: BL equal air entry with NVBS. No rhonchi, wheezes, or crackles. No increased work of breathing Neuro: Alert, Oriented to TPP, No Focal deficit Psych: Mood and Affect congruent, Cooperative on exam Results & Data Results & Data Vital Signs (Past 12 Hours) Vital Signs Temp Pulse Pulse Resp BP Pulse Ox O2 Del Method 03/28/24 02:50 36.5 C 37 L 16 148/57 H 98 Room Air 03/27/24 23:20 36.3 C L 39 L 16 116/59 L 99 Room Air 03/27/24 23:02 35 L 03/27/24 19:32 36.6 C 37 L 16 129/57 L 100 Room Air Resident Activity Tracking Resident Involvement: Resident Care Provided Care Provided: Adult Hospital Medicine
--- NOTE | 2024-03-29 07:07 | Hospitalist Progress Note ---
Date of Service March 29, 2024 Assessment & Plan (1) Thrombocytopenia: (2) COVID-19: (3) Rhabdomyolysis: Plan The patient is a 73-year-old female with a past medical history including pituitary adenoma, SIADH, history of community-acquired pneumonia, history of COVID-19 and anxiety. She presents to the emergency department after having progressively worsening symptoms of generalized weakness, fever, cough productive of green and yellow mucus, decreased oral intake and decreased physical activity over the past 24 hours. EMS was called, and brought the patient to the ED for further assessment #COVID Infection *STABLE for DC - Dexamethasone and Azithro completed D3 and DCed. Remdesivir completed as well. - Albuterol HFA 2 puffs 4 times daily as needed - Mucinex 600 mg p.o BID. #Thigh Weakness/Knee Pain/Hip Pain - Improving clinically. - DVT ruled out/ Cr kinase improving too. - PT/OT: recs Rehab #Bradycardia - Based on patient history, appears to be bradycardic normally. - Troponin negative, EKG: septal infarct( likely old given neg trop) - Follow on telemetry: Sinus bradycardia - Consider cardiology outpatient F/U. #Hypoglycemia - Improved on admission - on regular diet #Thrombocytopenia - Improved #Transaminitis Improving AST/ALT/ALP: 79/34/99 DVT Prophylaxis: Enoxaparin 40 mg SubQ Dispo: Pending placement to rehab to [facility]. They wont accept her until 04/03 coz of COVID. Barrier: Transportation issue. Admission and Anticipated Discharge Date Admission Date: March 24, 2024 Supervising Physician Co-Signing Physician Notes I personally examined the patient and verified foley points of history and exam, discussed case, and agree with decision making and plan documented by Dr. Donaldson. Patient with improvement of respiratory symptoms secondary to covid 19. Patient appears comfortable sitting in bedside chair, lungs clear b/l to auscultation, regular rate and rhythm, no lower extremity edema. Overall, patient optimistic about rehabilitation, she lacks personal transportation and relies on ambulation. Physical therapy to re-evaluate Saturday. At present, insurance authorization pending for rehabilitation at facility in [place], but patient's daughter also does not have personal transportation and relies on [facility] service. Patient chronically bradycardic, has not been evaluated by cardiology due to lack of symptomatology, recommend reevaluation when more ambulatory. Attempted to call patient's daughter Evelyn ([phone]) but was unable to reach her. Subjective This AM Charis feels much better, walked around in room, she feels she is ready to DC, agrees with rehab. No new complains. Understands that she is being worked up for rehab. Review of Systems Review of Systems: As per HPI Physical Exam Physical Exam: Constitutional: Well appearing, No acute distress, Pale looking. HEENT: Atraumatic, Normocephalic, No conjunctival injection CVS: Looks well perfused. Respiratory: No increased work of breathing Neuro: Alert, Oriented to TPP, No Focal deficit Psych: Mood and Affect congruent, Cooperative on exam Results & Data Results & Data Vital Signs (Past 12 Hours) Vital Signs Temp Pulse Pulse Pulse Resp BP Pulse Ox 03/29/24 02:33 36.4 C L 42 L 16 113/58 L 97 03/28/24 23:36 36.3 C L 43 L 16 146/72 H 99 03/28/24 23:00 42 L 03/28/24 20:00 03/28/24 20:00 03/28/24 19:30 36.6 C 50 L 16 107/59 L 99 O2 Del Method O2 Del Method 03/29/24 02:33 Room Air 03/28/24 23:36 Room Air 03/28/24 23:00 03/28/24 20:00 Room Air 03/28/24 20:00 Room Air 03/28/24 19:30 Room Air Resident Activity Tracking Resident Involvement: Resident Care Provided Care Provided: Adult Hospital Medicine
--- NOTE | 2024-03-30 07:05 | Hospitalist Progress Note ---
Date of Service March 30, 2024 Assessment & Plan (1) Thrombocytopenia: (2) COVID-19: (3) Rhabdomyolysis: Plan The patient is a 73-year-old female with a past medical history including pituitary adenoma, SIADH, history of community-acquired pneumonia, history of COVID-19 and anxiety. She presents to the emergency department after having progressively worsening symptoms of generalized weakness, fever, cough productive of green and yellow mucus, decreased oral intake and decreased physical activity over the past 24 hours. EMS was called, and brought the patient to the ED for further assessment #COVID Infection *STABLE for DC - Dexamethasone and Azithro completed D3 and DCed. Remdesivir completed as well. - Albuterol HFA 2 puffs 4 times daily as needed - Mucinex 600 mg p.o BID. #Thigh Weakness/Knee Pain/Hip Pain - Improving clinically. - DVT ruled out/ Cr kinase improving too. - PT/OT: Repeat eval suggests she can go home. #Bradycardia - Based on patient history, appears to be bradycardic normally. - Troponin negative, EKG: septal infarct( likely old given neg trop) - Follow on telemetry: Sinus bradycardia - Consider cardiology outpatient F/U. DVT Prophylaxis: Enoxaparin 40 mg SubQ Dispo: - PT/OT: Repeat eval suggests she can go home. Can DC; Charis want to wait until tomorrow. CM will see her this afternoon. Admission and Anticipated Discharge Date Admission Date: March 24, 2024 Supervising Physician Co-Signing Physician Notes I personally examined the patient and verified all foley points of history and exam, discussed case, and agree with decision making with Dr Donaldson feeling better. Overall feeling like she would do okay at home. Does need a little bit of time to prepare. Otherwise improving. Vitals noted, in general she is awake and alert pleasant no distress. HEENT normocephalic atraumatic mucous membranes moist. Breathing unlabored no accessory muscle use good effort. Skin without rashes pallor or icterus. Neuro without focal deficits. COVID/weaknessimproving nicely. Fortunately looks like she could go home instead of needing to go to rehabneeds time to plan/prepare. Anticipate home tomorrow. Otherwise as above. Subjective This AM Charis is stable. Was with OT team when I saw her. She was doing great. Definitely seems more stronger than how she came in. Will discuss about DC plan after OT/PT eval. Review of Systems Review of Systems: As per HPI Physical Exam Physical Exam: Constitutional: Well appearing, No acute distress, Pale looking. HEENT: Atraumatic, Normocephalic, No conjunctival injection CVS: Looks well perfused. Respiratory: No increased work of breathing Neuro: Alert, Oriented to TPP, No Focal deficit Psych: Mood and Affect congruent, Cooperative on exam Results & Data Results & Data Vital Signs (Past 12 Hours) Vital Signs Temp Pulse Pulse Resp BP Pulse Ox O2 Del Method 03/30/24 03:50 36.2 C L 46 L 16 131/69 99 Room Air 03/29/24 23:04 36.3 C L 43 L 16 112/59 L 98 Room Air 03/29/24 21:57 44 L 03/29/24 20:00 03/29/24 19:31 36.5 C 49 L 18 153/63 H 97 Room Air 03/29/24 19:08 36.4 C 42 L 18 125/65 99 Room Air O2 Del Method 03/30/24 03:50 03/29/24 23:04 03/29/24 21:57 03/29/24 20:00 Room Air 03/29/24 19:31 03/29/24 19:08 Resident Activity Tracking Resident Involvement: Resident Care Provided Care Provided: Adult Hospital Medicine
--- NOTE | 2024-03-30 17:57 | Billing Data ---
Date of Service March 30, 2024 Coding Level of Care Code 18475 SUB INP/OBS CARE
[2024-03-31 07:51] VITALS: BP 119/62; RESP 16; TEMP 98.1; O2SAT 98
--- NOTE | 2024-03-31 10:07 | Hospitalist Progress Note ---
Date of Service March 31, 2024 Assessment & Plan (1) Thrombocytopenia: (2) COVID-19: (3) Rhabdomyolysis: Plan The patient is a 73-year-old female with a past medical history including pituitary adenoma, SIADH, history of community-acquired pneumonia, history of COVID-19 and anxiety. She presents to the emergency department after having progressively worsening symptoms of generalized weakness, fever, cough productive of green and yellow mucus, decreased oral intake and decreased physical activity over the past 24 hours. EMS was called, and brought the patient to the ED for further assessment #COVID Infection *STABLE for DC - Dexamethasone and Azithro completed D3 and DCed. Remdesivir completed as well. - Albuterol HFA 2 puffs 4 times daily as needed - Mucinex 600 mg p.o BID. #Thigh Weakness/Knee Pain/Hip Pain - Improving clinically. - DVT ruled out/ Cr kinase improving too. - PT/OT: Repeat eval suggests she can go home. #Bradycardia - Based on patient history, appears to be bradycardic normally. - Troponin negative, EKG: septal infarct( likely old given neg trop) - Follow on telemetry: Sinus bradycardia - Consider cardiology outpatient F/U. DVT Prophylaxis: Enoxaparin 40 mg SubQ Dispo: - PT/OT: Repeat eval suggests she can go home. Can DC; Charis want to wait until tomorrow. Admission and Anticipated Discharge Date Admission Date: March 24, 2024 Subjective This AM Charis is stable, no new complain. Want to wait until tomorrow for Discharge as her daughter will be home. She stays in [address] in [address] floor and she need assistance for that. Review of Systems Review of Systems: As per HPI Physical Exam Physical Exam: Constitutional: Well appearing, No acute distress, Pale looking. HEENT: Atraumatic, Normocephalic, No conjunctival injection CVS: Looks well perfused. Respiratory: No increased work of breathing Neuro: Alert, Oriented to TPP, No Focal deficit Psych: Mood and Affect congruent, Cooperative on exam Results & Data Results & Data Vital Signs (Past 12 Hours) Vital Signs Temp Pulse Resp BP Pulse Ox O2 Del Method 03/31/24 08:13 Room Air 03/31/24 07:30 36.7 C 60 16 119/62 98 Room Air 03/31/24 02:40 36.8 C 43 L 18 120/75 100 Room Air 03/30/24 22:55 36.6 C 45 L 18 112/63 97 Room Air Resident Activity Tracking Resident Involvement: Resident Care Provided Care Provided: Adult Hospital Medicine
--- NOTE | 2024-03-31 10:34 | Discharge Summary ---
Date of Service March 31, 2024 Admission HPI Per Admitting Provider The patient is a 73-year-old female with a past medical history including pituitary adenoma, SIADH, history of community-acquired pneumonia, history of COVID-19 and anxiety. She presents to the emergency department after having progressively worsening symptoms of generalized weakness, fever, cough productive of green and yellow mucus, decreased oral intake and decreased physical activity over the past 24 hours. EMS was called, and brought the patient to the ED for further assessment Admission Exam Per Admitting Provider The patient is lethargic but arousable, normocephalic and atraumatic, lying in bed and in no acute distress. HEENT--PERRL, EOMI, mucous membranes and oropharynx dry. Neck--supple. No JVD. No bruits. Thyroid normal, trachea midline, no adenopathy. Heart--normal S1 and S2. No murmurs, rubs or gallops. Lungs--clear bilaterally, no respiratory distress, no accessory muscle use. Abdomen--normal bowel sounds and soft. Nontender. Nondistended, no hernias or masses, no organomegaly. Extremities--no cyanosis or clubbing. No edema. There are good distal pulses b/l. Dermatologic--normal skin turgor, normal color, no abnormal lymph nodes, no rash. Neurologic--cranial nerves II through XII grossly intact. Rheumatologic--normal range of motion. Psychiatric--normal affect. Principal Diagnosis COVID improved Muscle weakness better Discharge Exam Constitutional: Well appearing, No acute distress, Pale looking. HEENT: Atraumatic, Normocephalic, No conjunctival injection CVS: Looks well perfused. Respiratory: No increased work of breathing Neuro: Alert, Oriented to TPP, No Focal deficit Psych: Mood and Affect congruent, Cooperative on exam Discharge Data Allergies Allergy/AdvReac Type Severity Reaction Status Date / Time No Known Allergies Allergy Verified 01/21/24 12:52 Consultations 03/24/24 12:55 ED Decision to Admit Stat Ordered Studies 03/24/24 11:04 CT head/brain wo con Stat 03/25/24 11:51 US venous doppler LE LT Urgent Hospital Course (1) Thrombocytopenia: (2) COVID-19: (3) Rhabdomyolysis: Plan The patient is a 73-year-old female with a past medical history including pituitary adenoma, SIADH, history of community-acquired pneumonia, history of COVID-19 and anxiety. She presents to the emergency department after having progressively worsening symptoms of generalized weakness, fever, cough productive of green and yellow mucus, decreased oral intake and decreased physical activity over the past 24 hours. EMS was called, and brought the patient to the ED for further assessment #COVID Infection *STABLE for DC -Treated with Azithro, remdesevir, completed course of steroid. - Albuterol HFA 2 puffs 6 times daily as needed #Thigh Weakness/Knee Pain/Hip Pain - Improving. - PT/OT: Repeat eval suggests she can go home. #Bradycardia - Based on patient history, appears to be bradycardic normally. - Troponin negative, EKG: septal infarct( likely old given neg trop) - Follow on telemetry: Sinus bradycardia - Consider cardiology outpatient F/U. Total Time Total Time Spent Total Time Spent (In Minutes): See attending's attestation Discharge Plan Discharge Items Patient Disposition: Home - Self-Care Reason For Visit: COVID,RHABDOMYOLYSIS,ELEVATED TROPONIN,TRANSAMITIS Discharge Diagnosis: COVID +ve status Improved Activity: Resume your previous activity Non-emergency contact: Primary Care Provider Call non-emergency contact if: your symptoms worsen and your temperature is above 101.5 Follow-up/Referrals: Supriya Gallegos, [Primary Care Provider] - (Follow up with primary care in 1 week) Diet: Regular Addtl Attending Provider Instructions: You were admitted to the hospital for COVID ans muscle weakness. You were treated with anti- viral medicine called Remdesevir and supportive care with IV fluids, Physical therapy and occupational therapy. A discharge summary will be sent to your primary care physician to ensure continuity of care. Please bring this discharge summary with you to your next office appointment so that your provider can review it at that time. Medications: Your medication list has been reviewed and reconciled upon discharge to ensure accuracy and continuity of care. An updated list of all your medications is included with your hospital discharge paperwork. Please review this list closely and make note of any changes to your medications. Follow up appointments: - Make a follow up appointment with your PCP within the next week. It is very important that you follow up with them shortly after discharge from the hospital. - Keep all of your follow up appointments as already scheduled. If you cannot make an appointment, notify your provider CONTACT YOUR PRIMARY CARE PROVIDER if you experience any of the following: - Sudden Severe Shortness of breath,sudden chest pain - Difficulty following your treatment plan - Difficulty taking any of your medications CALL 911 OR GO TO THE EMERGENCY DEPARTMENT if you experience any of the following: - Sudden, severe abdominal pain or nausea/vomiting - Severe chest pain or chest pain that radiates to your jaw or arm - Sudden, severe shortness of breath or difficulty breathing Pending Studies at Discharge: No Stand-Alone Forms: [facility] [place], Smoking Cessation Medications and DC Order Prescriptions: New albuterol sulfate 90 mcg/actuation HFA aerosol inhaler 2 inh inhalation Q6H PRN (Reason: shortness of breath or wheezing) Qty: 6.7 0RF Continued docusate sodium [Colace] 100 mg capsule 100 mg PO DAILY Discharge Orders: Discharge Order (Routine); Ordered 03/31/24 Ordered By: Dian Antonio/Other Patient Handouts: COVID-19 Home Care, COVID 19 Flu Differences Admission Data Admit Date/Time: 03/24/24 13:37 Attending Provider: Sonido Duran Admit Provider: Alex Pacheco Primary Care Provider: Supriya Gallegos Other Providers: [facility],; [facility],Home Healthcare; Alex Pacheco Other Interventions: Discharge Summary Assessment (RN) Last Done: 03/31/24 10:52 Supervising Physician Co-Signing Physician Notes I personally examined the patient and verified all foley points of history and exam, discussed case, and agree with decision making with Dr Donaldson No new problems. Case management was able to arrange transportation home today.. Vitals noted, in general she is awake and alert pleasant no distress. HEENT normocephalic atraumatic mucous membranes moist. Breathing unlabored no accessory muscle use good effort. Skin without rashes pallor or icterus. Neuro without focal deficits. COVID/weaknessimproving nicely. Originally was looking like she would need to go to rehab, but now improving enough that she can go home. Safe/stable for home. Walker prescription given. Outpatient follow-up. Otherwise as above Resident Activity Tracking Resident Involvement: Resident Care Provided Care Provided: Adult Hospital Medicine
[2024-03-31 10:53] VITALS: PULSE 50
--- NOTE | 2024-03-31 17:14 | Billing Data ---
Date of Service March 31, 2024 Coding Level of Care Code 05623 IN/OBS DISCH 30 MIN/LESS
--- NOTE | 2024-04-01 17:15 | Electrocardiogram Report ---
Test Reason : Blood Pressure : */* mmHG Vent. Rate : 48 BPM Atrial Rate : 48 BPM P-R Int : 146 ms QRS Dur : 90 ms QT Int : 464 ms P-R-T Axes : 65 52 -1 degrees QTcB Int : 414 ms Sinus bradycardia Nonspecific T wave abnormality Possible Septal infarct When compared with ECG of 24-Mar-2024 11:11, T wave inversion no longer evident in Anterolateral leads Confirmed by Prem Hernandez ([id number]) on 04/01/2024 5:15:09 PM Referred By: REFERRED SELF Confirmed By: Prem Hernandez
== END 2024-03-31 16:30 | disposition home health service (06) | DRG 177 ==
LOC: ED 08:14 → EDINP 13:37 → SUATTDRO 13:37 → 2E 15:35